=== PATIENT | female | born 1950 | race Asian ===

== ENCOUNTER → 2020-01-27 11:51 | Outpatient (CLI) | payer MEDICARE, OTHER, SELFPAY ==
[2020-01-27 12:30] LABS: Add Manual Diff / Slide Review NO; Basophils Absolute Auto 100 /uL (0-100); Basophils Percent Auto 1.1 % (0-2); Eosinophils Absolute Auto 200 /uL (0-450); Eosinophils Percent Auto 2.4 % (2-4); Hematocrit 46.6 % (36-46); Hemoglobin 15.6 g/dL (12.0-16.0); Lymphocytes Absolute Auto 1900 /uL (1100-4500); Lymphocytes Percent Auto 28.1 % (25-40); Mean Corpuscular HGB Conc 33.6 % (30-36); Mean Corpuscular Volume 89.6 fL (80-100); Monocytes Absolute Auto 300 /uL (0-900); Monocytes Percent Auto 4.2 % (3-14); Neutrophils Absolute Auto 4300 /uL (1500-7000); Neutrophils Percent Auto 64.2 % (50-75); Platelet Count 213 X10^3/uL (150-400); White Blood Cell Count 6.8 X10^3/uL (4.5-11.0)
[2020-01-27 12:53] LABS: Alanine Aminotransferase 17 IU/L (<35); Albumin 4.5 g/dL (3.5-5.0); Albumin Globulin Ratio 1.5 (1.0-2.8); Alkaline Phosphatase 85 U/L (38-126); Aspartate Aminotransferase 26 IU/L (14-36); Bilirubin Total 0.5 mg/dL (0.2-1.3); Blood Urea Nitrogen 16 mg/dL (7-17); Calcium 9.5 mg/dL (8.4-10.2); Carbon Dioxide 28 mmol/L (22-32); Chloride 106 mmol/L (98-107); Cholesterol 217 mg/dL (140-199); Estimated Glomerular Filt Rate > 60.0 mL/min (>60); Globulin 3.1 g/dL (1.7-4.1); Glucose 128 mg/dL (80-110); HDL Cholesterol 48 mg/dL (40-60); HEMOLYSIS < 15 (0-50); Potassium 4.4 mmol/L (3.4-5.1); Sodium 141 mmol/L (137-145); Total Protein 7.6 g/dL (6.3-8.2)
[2020-01-27 12:58] LABS: Hemoglobin A1C% w Est Avg Glu 7.1 % (4.0-6.0)
[2020-01-27 13:00] LABS: Creatinine Urine Random 70.1 mg/dL
[2020-01-27 13:02] LABS: Microalbumi Creatinin Ratio Ur 27.1 ug/mg CR (<30); Microalbumin Urine Random 1.9 mg/dL (0-1.6)
[2020-01-27 13:09] LABS: LDL Cholesterol Calculated 142 mg/dL (<100); Triglycerides 133 mg/dL (35-150)
[2020-01-27 13:27] LABS: Thyroid Stimulating Hormone 0.403 uIU/mL (0.47-4.68)
[2020-01-27 15:57] LABS: Free T3, Triiodothyronine Free 3.81 pg/mL (2.77-5.27); Free T4, Direct Thyroxine 1.34 ng/dL (0.78-2.19)
== END ==
PROVIDERS: PCP Registered Nurse Diabetes Educator; Referring Provider Registered Nurse Diabetes Educator; Visit Provider Registered Nurse Diabetes Educator
DX: E11.9 Type 2 diabetes mellitus without complications (principal); I10 Essential (primary) hypertension; E08.40 Diabetes mellitus due to underlying condition with diabetic neuropathy, unspecified; R79.89 Other specified abnormal findings of blood chemistry
CPT/HCPCS: 36415; 80053; 80061; 82043; 82570; 83036; 84439; 84443; 84481; 85025

== ENCOUNTER 2021-01-15 16:16 | Emergency (ER) | payer MEDICARE, OTHER, SELFPAY ==
[2021-01-15] VITALS (7 sets, daily range): BP systolic 127–214; BP diastolic 64–89; PULSE 53–68; RESP 18–20; TEMP 36.3; O2SAT 96–98
--- NOTE | 2021-01-15 16:23 | ED.ABDPAIN ---
HPI - Abdominal Pain General Chief Complaint: Abdominal Pain Stated Complaint: stomach ache since saturday night Time Seen by Provider: 01/15/21 16:19 Source: patient and family Mode of arrival: Ambulatory Limitations: no limitations History of Present Illness HPI narrative: 70-year-old female nonsmoker with history of hypertension presents with her son and a chief complaint of a few days of worsening generalized abdominal pain associated with nausea and constipation. She denies any fever chills nor history of the same. She states her pain has subtle into her left lower quadrant and seems to be worse with eating, drinking and moving. She states the driving in was rather uncomfortable. She denies any radiation of the pain. She states that it is rather persistent, achy and crampy in nature. She denies any urinary complaints such as dysuria, frequency or urgency MD complaint: abdominal pain and flank pain Onset (ago): day(s) Pain Consistency: constant Location: LLQ Severity: moderate Quality: cramping and aching Radiation: none Relieving factors: nothing Exacerbating factors: eating Associated symptoms: nausea and constipation Related Data Home Medications Medication Instructions Recorded Confirmed calcium carbonate 200 mg-magnesium tab PO 04/03/19 02/11/20 oxide,carbonate 100 mg chew tablet cholecalciferol (vitamin D3) 25 1,000 unit PO DAILY 04/03/19 02/11/20 mcg (1,000 unit) capsule multivitamin 1 tab PO DAILY 04/03/19 02/11/20 vitamin B comp and C no.3 15 mg-10 1 cap PO DAILY 04/03/19 02/11/20 mg-50 mg-5 mg-300 mg capsule Previous Rx's Medication Instructions Recorded Diabetic test strips #100 each 04/03/19 gabapentin 300 mg capsule 300 mg PO BEDTIME #90 cap 11/18/19 losartan 50 mg tablet 50 mg PO DAILY #90 tab 01/27/20 metformin 500 mg tablet,extended 500 mg PO QPM #90 tab 01/27/20 release 24 hr nifedipine 30 mg tablet,extended 30 mg PO DAILY #90 tab 01/27/20 release 24 hr Allergies Allergy/AdvReac Type Severity Reaction Status Date / Time sulfamethoxazole Allergy Unknown Verified 02/11/20 08:06 [From ] trimethoprim [From ] Allergy Unknown Verified 02/11/20 08:06 Review of Systems Constitutional Constitutional: Denies chills, Denies fatigue, Denies fever(s), Denies frequent falls, Denies lethargy and Denies weakness Eyes Eyes: Denies change in vision, Denies eye discharge, Denies irritation and Denies loss of vision ENT Ears, Nose, Mouth, and Throat: Denies change in voice, Denies dizziness, Denies neck pain, Denies sore throat and Denies throat swelling Cardiovascular Cardiovascular: Denies chest pain, Denies irregular heart rhythm, Denies lightheadedness, Denies palpitations, Denies dyspnea, Denies dyspnea on exertion and Denies orthopnea Respiratory Respiratory: Denies cough, Denies dyspnea, Denies dyspnea on exertion and Denies wheezing Gastrointestinal Gastrointestinal: Reports abdominal pain, Denies change in bowel habits, Denies diarrhea, Reports nausea and Reports vomiting Musculoskeletal Musculoskeletal: Denies neck pain and Denies numbness Integumentary/Breasts Skin/Breast: Denies pruritus, Denies erythema, Denies rash and Denies wounds Neurologic Neurologic: Denies behavioral changes, Denies confusion, Denies dizziness, Denies frequent falls, Denies loss of vision, Denies numbness and Denies weakness Psychiatric Psychiatric: Denies anxiety, Denies behavioral changes, Denies confusion, Denies depression, Denies homicidal ideation and Denies suicidal ideation Endocrine Endocrine: Denies fatigue, Denies flushing and Denies palpitations Hematologic/Lymphatic Hematologic/Lymphatic: Denies easy bruising Allergic/Immunologic Allergic/Immunologic: Denies urticaria, Denies throat swelling and Denies wheezing Patient History Medical History Abnormal thyroid blood test Bradycardia Hyperlipidemia Surgical History Anesthesia History of endometriosis (~2004) Status post delivery (~1981) Family History Father Asthma Grandmother Tuberculosis Social History Smoking Status: Current every day smoker (1/2 PPD) Tobacco: How many years used: 40 second hand exposure: Yes alcohol intake: current (Occasional) Smoking Status: Current every day smoker (1/2 PPD) Exam Narrative Exam Narrative: GENERAL: [70] year old patient appears stated age. Well-developed patient, in mild distress. HEAD: Atraumatic. Normocephalic. EYES: Pupils equal round and reactive. Extraocular motions intact. No scleral icterus. No injection or drainage. ENT: Nose without bleeding, purulent drainage. Throat without erythema, tonsillar hypertrophy or exudate. Airway patent. NECK: Trachea midline. Non tender CARDIOVASCULAR: Regular rate and rhythm without murmurs, gallops, or rubs. RESPIRATORY: Clear to auscultation. Breath sounds equal bilaterally. No wheezes, rales, or rhonchi. GASTROINTESTINAL: Abdomen soft, tender in left lower quadrant and left abdomen, bowel sounds present in all 4 quadrants no guarding or rebound, nondistended. EXTREMITIES: No edema or joint tenderness. BACK: Nontender without deformity or crepitance. No flank tenderness. NEURO: AOx3. SKIN: No rash or erythema of visible areas Initial Vital Signs Initial Vital Signs: Vital Signs Temperature 97.4 F L 01/15/21 16:21 Pulse Rate 68 01/15/21 16:21 Respiratory Rate 20 01/15/21 16:21 Blood Pressure 214/89 H 01/15/21 16:21 Pulse Oximetry 96 01/15/21 16:21 Course Orders Ordered: ED Orders 01/15/21 16:23 XR acute abdomen series Stat 01/15/21 16:27 Complete Blood Count AUTO DIFF Stat Comprehensive Metabolic Panel Stat Lipase Stat 01/15/21 17:05 CT abdomen pelvis w con Stat Sodium Chloride (Normal Saline 0.9%) 1,000 mls @ 1,000 mls/hr IV BOLUS ONE Stop: 01/15/21 17:22 Last Admin: 01/15/21 16:41 Dose: 1,000 mls/hr Documented by: DAPHNE Vital Signs Vital signs: Vital Signs - 8 hr 01/15/21 16:21 01/15/21 16:30 01/15/21 16:59 Temperature 97.4 F L Pulse Rate 68 57 L 56 L Respiratory Rate 20 18 Blood Pressure 214/89 H 142/67 H Pulse Oximetry 96 97 97 01/15/21 17:00 Temperature Pulse Rate 56 L Respiratory Rate Blood Pressure 140/76 Pulse Oximetry 97 MDM - Abdominal Pain Lab Data Result diagrams: 01/15/21 16:27 01/15/21 16:27 Labs: Lab Results 01/15/21 01/15/2101/15/21 Range/Units 16:27 16:27 16:27 WBC 11.5 H (4.5-11.0) X10^3/uL RBC 5.37 H (4.0-5.2) X10^6/uL Hgb 15.9 (12.0-16.0) g/dL Hct 48.0 H (36-46) % MCV 89.4 (80-100) fL MCH 29.6 (26-34) PG MCHC 33.1 (30-36) % RDW 14.5 (11.6-14.8) % Plt Count 216 (150-400) X10^3/uL Neut % (Auto) 76.3 H (50-75) % Lymph % (Auto) 16.1 L (25-40) % [place] % (Auto) 5.6 (3-14) % Eos % (Auto) 1.6 L (2-4) % Baso % (Auto) 0.4 (0-2) % Neut # (Auto) 8700 H (7086-9878) /uL Lymph # (Auto) 1800 (2623-9146) /uL [place] # (Auto) 600 (0-900) /uL Eos # (Auto) 200 (0-450) /uL Baso # (Auto) 0 (0-100) /uL Sodium 139 (137-145) mmol/L Potassium 3.8 (3.4-5.1) mmol/L Chloride 103 (98-107) mmol/L Carbon Dioxide 28 (22-32) mmol/L BUN 19 H (7-17) mg/dL Creatinine 0.84 (0.52-1.04) mg/dL Estimated GFR > 60.0 (>60) mL/min BUN/Creatinine Ratio 22.6 H (6-22) Glucose 207 H (80-110) mg/dL Calcium 10.0 (8.4-10.2) mg/dL Total Bilirubin 0.5 (0.2-1.3) mg/dL AST 23 (14-36) IU/L ALT 18 (<35) IU/L Alkaline Phosphatase 86 (38-126) U/L Total Protein 8.2 (6.3-8.2) g/dL Albumin 4.5 (3.5-5.0) g/dL Globulin 3.7 (1.7-4.1) g/dL Albumin/Globulin Ratio 1.2 (1.0-2.8) Lipase 125 (23-300) U/L Imaging Data Abdominal x-ray: Radiologist's Impression: [address] [id number] ReportSigned Patient: Hayley Yao GMR#: [id number]: 1950cct:[id number]/Sex: 70 / FDate of Service: 01/15/21Loc: EDAccession Number: [id number] Procedure: XR acute abdomen series Ordering Provider: Phani Barker D.O. PROCEDURE: XR ACUTE ABDOMEN SERIES INDICATIONS: Abdominal pain, nausea, constipation TECHNIQUE: One view chest and two views of the abdomen were acquired. COMPARISON: None. FINDINGS: Surgical changes and devices: None. Chest: Lungs are clear. The cardiac contours are within normal limits. The aorta demonstrates calcification and tortuosity. No pleural effusions. No pneumoperitoneum. Abdomen: Bowel gas pattern is normal. No suspicious calcifications. Visualized solid organ contours appear normal. There is a moderate amount of stool seen within the colon. Bones: No suspicious bony lesions. IMPRESSION: A nonobstructive bowel gas pattern is seen. There is a moderate amount of stool seen within the colon, which is consistent with the given clinical history of history of constipation. If clinically appropriate, please consider a repeat plain film study or a dedicated CT of the abdomen and pelvis, if the patient's symptoms persist or worsen. Dictated by: Kenyon Cristina M.D. on 01/15/2021 at 15:57 Approved by: Kenyon Cristina M.D. on 01/15/2021 at 15:59 Discharge Plan Departure Prescriptions: No Action gabapentin 300 mg capsule 300 mg PO BEDTIME Qty: 90 RF: 0 nifedipine 30 mg tablet extended release 24hr 30 mg PO DAILY Qty: 90 RF: 3 losartan 50 mg tablet 50 mg PO DAILY Qty: 90 RF: 3 metformin 500 mg tablet extended release 24 hr 500 mg PO QPM Qty: 90 RF: 3 B Complex Plus Vitamin C 65-04-82-5-300 mg capsule 1 cap PO DAILY RF: 0 Pancho-Mag 200 mg calcium- 100 mg tablet,chewable PO RF: 0 multivitamin tablet 1 tab PO DAILY RF: 0 cholecalciferol (vitamin D3) 1,000 unit capsule 1,000 unit PO DAILY RF: 0 (DME) Diabetic test strips Qty: 100 RF: 3
[2021-01-15 16:36] LABS: Add Manual Diff / Slide Review NO; Basophils Absolute Auto 0 /uL (0-100); Basophils Percent Auto 0.4 % (0-2); Eosinophils Absolute Auto 200 /uL (0-450); Eosinophils Percent Auto 1.6 % (2-4); Hemoglobin 15.9 g/dL (12.0-16.0); Lymphocytes Absolute Auto 1800 /uL (1100-4500); Lymphocytes Percent Auto 16.1 % (25-40); Mean Corpuscular HGB Conc 33.1 % (30-36); Mean Corpuscular Hemoglobin 29.6 PG (26-34); Mean Corpuscular Volume 89.4 fL (80-100); Monocytes Absolute Auto 600 /uL (0-900); Monocytes Percent Auto 5.6 % (3-14); Neutrophils Absolute Auto 8700 /uL (1500-7000); Neutrophils Percent Auto 76.3 % (50-75); Platelet Count 216 X10^3/uL (150-400); Red Blood Cell Count 5.37 X10^6/uL (4.0-5.2); Red Cell Distribution Width 14.5 % (11.6-14.8); White Blood Cell Count 11.5 X10^3/uL (4.5-11.0)
[2021-01-15] MEDS: SODIUM CHLORIDE 0.9% 1,000 ML 1000 ML IV (16:41)
[2021-01-15 16:55] LABS: Alanine Aminotransferase 18 IU/L (<35); Albumin 4.5 g/dL (3.5-5.0); Albumin Globulin Ratio 1.2 (1.0-2.8); Alkaline Phosphatase 86 U/L (38-126); Aspartate Aminotransferase 23 IU/L (14-36); BUN Creatinine Ratio 22.6 (6-22); Bilirubin Total 0.5 mg/dL (0.2-1.3); Blood Urea Nitrogen 19 mg/dL (7-17); Carbon Dioxide 28 mmol/L (22-32); Chloride 103 mmol/L (98-107); Estimated Glomerular Filt Rate > 60.0 mL/min (>60); Globulin 3.7 g/dL (1.7-4.1); Glucose 207 mg/dL (80-110); HEMOLYSIS < 15 (0-50); Lipase 125 U/L (23-300); Potassium 3.8 mmol/L (3.4-5.1); Sodium 139 mmol/L (137-145); Total Protein 8.2 g/dL (6.3-8.2)
--- NOTE | 2021-01-15 17:05 | DI.CT.S_ITS ---
PROCEDURE: CT ABDOMEN PELVIS W CON INDICATIONS: severe LLQ pain, elevated WBCs TECHNIQUE: After the administration of intravenous contrast, axial sections acquired from the lung bases to the pubic symphysis. Coronal and sagittal reformats were performed. For radiation dose reduction, the following was used: automated exposure control, adjustment of mA and/or kV according to patient size. COMPARISON: [facility], CR, XR ACUTE ABDOMEN SERIES, 01/15/2021, 16:22. FINDINGS: Image quality: Excellent. Lung bases: Unremarkable. Heart: No significant findings. ABDOMEN: Liver: Unremarkable. Gallbladder: Unremarkable. Biliary ducts: Unremarkable. Pancreas: Unremarkable. Spleen: Unremarkable. Adrenal Glands: Unremarkable. Kidneys and Ureters: Unremarkable. Stomach and Bowel: In this patient with this given history, scrutiny is given to the sigmoid colon. Moderate wall thickening can be seen involving the sigmoid colon, with mild surrounding inflammatory change. Diverticula formation can be seen within this region. No free air is seen to suggest perforation. No loculated abscess collection can be seen. Elsewhere, no focal bowel wall thickening can be seen. No dilated loops of small bowel are seen. A normal appendix is incidentally noted. Hyperdense material can be seen within the colon. Please correlate with ingestions, such as Pepto-Bismol. Peritoneum: No abnormal intraperitoneal fluid. No free air. Ventral Wall: No hernias. Abdominal Nodes: No retroperitoneal or mesenteric adenopathy by size criteria. Vessels: Aorta and inferior vena cava are normal in size. PELVIS: Pelvic Organs: Unremarkable. Bladder: Unremarkable. Pelvic Nodes: No enlarged lymph nodes. Miscellaneous: Note is made prominent adnexal vessels on the left, with a prominent left ovarian vein. Bones: Mild levoconvex scoliotic curvature is noted. Age-appropriate bony degenerative changes are seen. Grade 1 L4-5 anterolisthesis is seen. IMPRESSION: [id number] sigmoid diverticulitis. No findings of perforation or abscess can be seen. When clinically appropriate (following adequate treatment of the patient's current clinical episode) a colonoscopy is recommended for further evaluation for a potential underlying mass (if not already recently done). Incidental note is made of: Levoconvex scoliotic curvature Grade 1 L4-5 anterolisthesis Left pelvic varices Dictated by: Kenyon Cristina M.D. on 01/15/2021 at 16:27 Approved by: Kenyon Cristina M.D. on 01/15/2021 at 16:31
[2021-01-15] MEDS: HYDROCODONE/ACET 5/325 PREPACK 1 BOTTLE MISC (18:06)
[2021-01-15] MEDS: AMOXICILLIN/CLAV 875/125 MG 1 TAB PO (18:06)
[2021-01-15] MEDS: ONDANSETRON 4 MG ODT PREPACK 1 BOTTLE MISC (18:06)
== END 2021-01-15 18:26 | disposition home or self-care (01) ==
PROVIDERS: Emergency Provider Emergency Medicine; PCP Registered Nurse Diabetes Educator
DX: K57.92 Diverticulitis of intestine, part unspecified, without perforation or abscess without bleeding (principal); R11.0 Nausea; K59.00 Constipation, unspecified
CPT/HCPCS: 36415; 74022; 74177; 80053; 83690; 85025; 96360; 99284

== ENCOUNTER 2021-02-20 19:08 | Inpatient (IN) | payer MEDICARE, OTHER, SELFPAY ==
[2021-02-20 19:31] VITALS: BP 139/81; PULSE 74; RESP 14; TEMP 36.2; O2SAT 99
[2021-02-20 21:48] VITALS: BP 166/79; PULSE 74; RESP 26; TEMP 37.9; O2SAT 96
[2021-02-20 21:56] LABS: Add Manual Diff / Slide Review NO; Basophils Absolute Auto 100 /uL (0-100); Basophils Percent Auto 0.4 % (0-2); Eosinophils Absolute Auto 600 /uL (0-450); Eosinophils Percent Auto 4.2 % (2-4); Hematocrit 44.6 % (36-46); Hemoglobin 14.6 g/dL (12.0-16.0); Lymphocytes Absolute Auto 1000 /uL (1100-4500); Lymphocytes Percent Auto 6.6 % (25-40); Mean Corpuscular HGB Conc 32.8 % (30-36); Mean Corpuscular Hemoglobin 28.9 PG (26-34); Mean Corpuscular Volume 87.9 fL (80-100); Monocytes Absolute Auto 800 /uL (0-900); Monocytes Percent Auto 5.6 % (3-14); Neutrophils Absolute Auto 12600 /uL (1500-7000); Neutrophils Percent Auto 83.2 % (50-75); Platelet Count 198 X10^3/uL (150-400); Red Blood Cell Count 5.07 X10^6/uL (4.0-5.2); Red Cell Distribution Width 14.3 % (11.6-14.8); White Blood Cell Count 15.2 X10^3/uL (4.5-11.0)
[2021-02-20 22:00] VITALS: BP 149/75; PULSE 71; RESP 24; O2SAT 95
[2021-02-20 22:02] LABS: Alanine Aminotransferase 33 IU/L (<35); Albumin 4.1 g/dL (3.5-5.0); Albumin Globulin Ratio 1.2 (1.0-2.8); Alkaline Phosphatase 108 U/L (38-126); Aspartate Aminotransferase 40 IU/L (14-36); BUN Creatinine Ratio 30.8 (6-22); Bilirubin Total 0.8 mg/dL (0.2-1.3); Blood Urea Nitrogen 16 mg/dL (7-17); Calcium 9.2 mg/dL (8.4-10.2); Carbon Dioxide 26 mmol/L (22-32); Chloride 106 mmol/L (98-107); Estimated Glomerular Filt Rate > 60.0 mL/min (>60); Globulin 3.5 g/dL (1.7-4.1); Glucose 162 mg/dL (80-110); HEMOLYSIS 26 (0-50); Lipase 50 U/L (23-300); Potassium 3.9 mmol/L (3.4-5.1); Sodium 139 mmol/L (137-145); Total Protein 7.6 g/dL (6.3-8.2)
[2021-02-20 22:30] VITALS: BP 150/78; PULSE 73; RESP 29; O2SAT 92
[2021-02-20 23:00] VITALS: PULSE 73; RESP 30; O2SAT 93
[2021-02-20 23:30] VITALS: PULSE 75; RESP 31; O2SAT 94
[2021-02-21] VITALS (31 sets, daily range): BP systolic 109–158; BP diastolic 61–79; PULSE 59–101; RESP 14–38; TEMP 36.1–37.5; O2SAT 92–100; BMI 24.8; BMI 23.3
[2021-02-21] MEDS: KETOROLAC 30 MG/ML VIAL 15 MG IV (00:48)
--- NOTE | 2021-02-21 01:00 | ED_ITS ---
HPI - Abdominal Pain General Chief Complaint: Abdominal Pain Stated Complaint: STOMACH PAIN Time Seen by Provider: 02/21/21 01:00 Source: patient Mode of arrival: Wheelchair Limitations: no limitations History of Present Illness HPI narrative: This is a 70-year-old female comes with complaint of abdominal pain. Patient states it started left lower quadrant but is now throughout her abdomen. She has not had a fever that she is aware of. She has not any nausea or vomiting. She is having some epigastric discomfort as well. Patient states she has not had a bowel movement for 12-24 hours. She has not had any black or bloody stools recently. She has noted that when she bears down to urinate she has increased pain in her abdomen. She has not appreciated any other urinary symptoms. Patient has had diverticulitis in the past she states she was on antibiotics before on improved. She did set up an appointment with our general surgeon Dr. Mohr but has not been able to see him. She has had 2 days of sy mptoms. She has had a history of diabetes, endometriosis and hypertension. She has not had her appendix removed. Positive for tobacco use, occasional alcohol, no illicit. She is allergic to Septra. She denies any other medication allergies Related Data Home Medications Medication Instructions Recorded Confirmed calcium carbonate 200 mg-magnesium tab PO 04/03/19 02/11/20 oxide,carbonate 100 mg chew tablet (Pancho-Mag) vitamin B comp and C no.3 15 mg-10 1 cap PO DAILY 04/03/19 02/11/20 mg-50 mg-5 mg-300 mg capsule (B Complex Plus Vitamin C) Previous Rx's Medication Instructions Recorded Diabetic test strips #100 each 04/03/19 losartan 50 mg tablet 50 mg PO DAILY #90 tab 01/27/20 metformin 500 mg tablet,extended 500 mg PO QPM #90 tab 01/27/20 release 24 hr ondansetron 4 mg disintegrating 4 mg PO TID-QID PRN #10 tab 01/15/21 tablet gabapentin 300 mg capsule 300 mg PO BEDTIME #30 cap 01/19/21 nifedipine 30 mg tablet,extended 30 mg PO DAILY #30 tab 01/19/21 release 24 hr Allergies Allergy/AdvReac Type Severity Reaction Status Date / Time sulfamethoxazole Allergy Unknown Verified 02/20/21 19:34 [From SEPTRA] trimethoprim [From APRRA] Allergy Unknown Verified 02/20/21 19:34 Review of Systems Review of Systems ROS Unobtainable: All systems reviewed & are unremarkable except as noted in HPI and below Patient History Medical History Abnormal thyroid blood test Bradycardia Hyperlipidemia Screening for malignant neoplasm of colon Surgical History Anesthesia History of endometriosis (~2004) Status post delivery (~1981) Family History Father Asthma Grandmother Tuberculosis Social History household members: family and children Smoking Status: Current every day smoker Tobacco: How many years used: 40 second hand exposure: Yes alcohol intake: current Smoking Status: Current every day smoker alcohol intake frequency: 0-2 drinks per day Substance Use Type: does not use Exam Narrative Exam Narrative: GENERAL: Alert and oriented x three, female in moderate distress. HEENT: Head normocephalic, atraumatic, EOMI, pupils reactive, face symmetric, moist mucous membranes NECK: Supple, full range of motion CARDIOVASCULAR: Regular rate and rhythm without murmurs, rubs or gallops. RESPIRATORY: Breath sounds equal bilaterally, no wheezes rales or rhonchi. ABDOMEN: Soft, generalized tenderness. Normoactive bowel sounds all 4 quadran ts. Positive for guarding and rebound, no rigidity, no mass : No CVA tenderness EXTREMITIES: Normal range of motion, no clubbing or edema. Neurovascularly intact NEUROLOGICAL: Cranial nerves II through XII grossly intact. Moving all extremities SKIN: Warm, dry, no petechiae, no rashes or lesions. Initial Vital Signs Initial Vital Signs: Vital Signs Temperature 97.1 F L 02/20/21 19:31 Pulse Rate 74 02/20/21 19:31 Respiratory Rate 14 02/20/21 19:31 Blood Pressure 139/81 02/20/21 19:31 Pulse Oximetry 99 02/20/21 19:31 Course Orders Ordered: ED Orders 02/21/21 01:18 CT abdomen pelvis w con Stat 02/21/21 02:20 COVID19 - ADMIT (BAT[employer] TEST ENGINEER swab/PCR) Stat Sodium Chloride (Normal Saline 0.9%) 1,000 mls @ 125 mls/hr IV CONT [facility] Last Admin: 02/21/21 05:41 Dose: 125 mls/hr Documented by: ROSALINA Piperacillin Sod/Tazobactam (Sod 4.5 gm/ Sodium Chloride) 100 mls @ 25 mls/hr IV Q8H [facility] Last Admin: 02/21/21 05:41 Dose: 25 mls/hr Documented by: ROSALINA Morphine Sulfate (Morphine 4 Mg/Ml Inj) 4 mg IV Q2HR PRN PRN Reason: PAIN, MODERATE TO SEVERE Naloxone HCl (Naloxone 0.4 Mg/Ml Vial) 0.2 mg IV Q2MIN PRN PRN Reason: Opiate Reversal Ondansetron HCl (Ondansetron 4 Mg/2 Ml Inj) 4 mg IV Q4HR PRN PRN Reason: Nausea And Vomiting Discontinued Medications Piperacillin Sod/Tazobactam (Sod 4.5 gm/ Sodium Chloride) 100 mls @ 200 mls/hr IV NOW ONE Stop: 02/21/21 01:19 Last Infusion: 02/21/21 02:23 Dose: 0 mls/hr Documented by: Admin: 02/21/21 01:38 Dose: 200 mls/hr Documented by: LUKAS Ketorolac Tromethamine (Ketorolac 30 Mg/Ml Vial) 15 mg IV NOW ONE Stop: 02/21/21 00:46 Last Admin: 02/21/21 00:48 Dose: 15 mg Documented by: LUKAS Morphine Sulfate (Morphine 4 Mg/Ml Inj) 4 mg IV NOW ONE Stop: 02/21/21 02:35 Last Admin: 02/21/21 02:57 Dose: 4 mg Documented by: TIFFANIE Morphine Sulfate (Morphine 4 Mg/Ml Inj) 4 mg IV Q2HR [facility] Consultations Consultation #1: Dr. Mohr, accepts for admission. Diverticulitis with abscess. Patient has white count of 15 and was tachypneic initially although that has improved but she did initially meet SIRS criteria. Vital Signs Vital signs: Vital Signs - 8 hr 02/20/21 23:00 02/20/21 23:30 02/21/21 00:00 Temperature Pulse Rate 73 75 76 Respiratory Rate 30 H 31 H 29 H Blood Pressure Pulse Oximetry 93 94 93 02/21/21 00:30 02/21/21 01:00 02/21/21 01:20 Temperature 98.2 F Pulse Rate 70 73 Respiratory Rate 38 H 28 H Blood Pressure Pulse Oximetry 94 94 02/21/21 01:34 02/21/21 02:00 02/21/21 02:21 Temperature Pulse Rate 83 67 71 Respiratory Rate 24 25 H Blood Pressure 130/65 Pulse Oximetry 95 97 94 02/21/21 02:30 Temperature Pulse Rate 64 Respiratory Rate 26 H Blood Pressure Pulse Oximetry 94 MDM - Abdominal Pain Lab Data Result diagrams: 02/20/21 21:40 02/20/21 21:40 Labs: Lab Results 02/20/21 02/20/21 02/21/21 Range/Units 21:40 21:40 02:20 WBC 15.2 H (4.5-11.0) X10^3/uL RBC 5.07 (4.0-5.2) X10^6/uL Hgb 14.6 (12.0-16.0) g/dL Hct 44.6 (36-46) % MCV 87.9 (80-100) fL MCH 28.9 (26-34) PG MCHC 32.8 (30-36) % RDW 14.3 (11.6-14.8) % Plt Count 198 (150-400) X10^3/uL Neut % (Auto) 83.2 H (50-75) % Lymph % (Auto) 6.6 L (25-40) % [place] % (Auto) 5.6 (3-14) % Eos % (Auto) 4.2 H (2-4) % Baso % (Auto) 0.4 (0-2) % Neut # (Auto) 07140 H (4368-2890) /uL Lymph # (Auto) 1000 L (2089-8053) /uL [place] # (Auto) 800 (0-900) /uL Eos # (Auto) 600 H (0-450) /uL Baso # (Auto) 100 (0-100) /uL Sodium 139 (137-145) mmol/L Potassium 3.9 (3.4-5.1) mmol/L Chloride 106 (98-107) mmol/L Carbon Dioxide 26 (22-32) mmol/L BUN 16 (7-17) mg/dL Creatinine 0.52 (0.52-1.04) mg/dL Estimated GFR > 60.0 (>60) mL/min BUN/Creatinine Ratio 30.8 H (6-22) Glucose 162 H (80-110) mg/dL Calcium 9.2 (8.4-10.2) mg/dL Total Bilirubin 0.8 (0.2-1.3) mg/dL AST 40 H (14-36) IU/L ALT 33 (<35) IU/L Alkaline Phosphatase 108 (38-126) U/L Total Protein 7.6 (6.3-8.2) g/dL Albumin 4.1 (3.5-5.0) g/dL Globulin 3.5 (1.7-4.1) g/dL Albumin/Globulin Ratio 1.2 (1.0-2.8) Lipase 50 (23-300) U/L SARS-CoV-2 (PCR) Negative (Negative) ECG Data Interpretation: Sinus rhythm rate of 70 6p are 138 QRS is 74 QTC 371. Nonspecific changes. MDM Narrative Medical decision making narrative: 70-year-old female comes emergency department with several days of abdominal pain patient is quite painful on her abdominal exam. CT imaging was obtained which shows sigmoid diverticulitis with abscess. Patient was started on Zosyn. COVID swab was obtained and patient's case was discussed with Dr. Mohr who accepts for admission Discharge Plan Departure Patient Disposition: Admitted As Inpatient Clinical Impression: Abscess of sigmoid colon due to diverticulitis, Cyst of right kidney Admit Date/Time: 02/21/21 02:36 Admit Provider: Scott Mohr
--- NOTE | 2021-02-21 01:18 | DI.CT.S_ITS ---
PROCEDURE: CT ABDOMEN PELVIS W CON INDICATIONS: abdominal pain generalized, history of diverticulitis TECHNIQUE: After the administration of intravenous contrast, axial sections acquired from the lung bases to the pubic symphysis. Coronal and sagittal reformats were performed. For radiation dose reduction, the following was used: automated exposure control, adjustment of mA and/or kV according to patient size. COMPARISON: [facility], CR, XR ACUTE ABDOMEN SERIES, 01/15/2021, 16:22. [facility], CT, CT ABDOMEN PELVIS W CON, 01/15/2021, 17:17. FINDINGS: Image quality: Excellent. Lung bases: Right middle lobe and basilar atelectasis. Small hiatal hernia. Heart: No significant findings. ABDOMEN: Liver: Liver is normal in size. Hepatic steatosis. Gallbladder: Unremarkable. Biliary ducts: Unremarkable. Pancreas: Unremarkable. Spleen: Unremarkable. Adrenal Glands: Unremarkable. Kidneys and Ureters: There is a 0.9 cm cortical cyst in the inferior pole of the right kidney. Stomach and Bowel: Colonic diverticula are present. There is segmental thickening and pericolonic stranding of sigmoid colon consistent with acute diverticulitis. There is an extraluminal air and gas collection anterior to the sigmoid colon measuring 4.1 x 3.9 cm, compatible with an abscess. Bowel loops are demonstrate normal caliber. Normal appendix. Peritoneum: Trace free intraperitoneal fluid. No free air. Ventral Wall: Tiny fat containing umbilical hernia. Abdominal Nodes: No retroperitoneal or mesenteric adenopathy by size criteria. Vessels: Aorta and inferior vena cava are normal in size. Mild atherosclerotic calcifications. PELVIS: Pelvic Organs: Unremarkable. Bladder: Unremarkable. Pelvic Nodes: No enlarged lymph nodes. Miscellaneous: No hernias are seen. Bones: Grade 1 anterolisthesis of L 4 on L5. Degenerative changes in lumbar spine. IMPRESSION: 1. Sigmoid diverticulosis and acute diverticulitis. There is a 4.1 x 3.9 cm extra-luminal air and gas collection anterior to the sigmoid colon compatible with an abscess. A trace amount of free fluid is present. No free peritoneal air. After adequate treatment, colonoscopy is suggested as colon cancer could have a similar CT appearance. No significant discrepancy with the certified shorthand reporter radiology preliminary report. Dictated by: Whitney Llanes M.D. on 02/21/2021 at 7:55 Approved by: Whitney Llanes M.D. on 02/21/2021 at 8:08
[2021-02-21] MEDS: PIPERACILLIN/TAZO 4.5 GM in SODIUM CHLORIDE 0.9% 100 ML 200 ML IV (01:38)
[2021-02-21] MEDS: MORPHINE 4 MG/ML INJ IV (02:57)
[2021-02-21 03:15] LABS: Bacteria Urine None Seen; WBC Urine None Seen (0-5/HPF)
[2021-02-21 03:16] LABS: Appearance Urine UA CLEAR; Bilirubin Urine UA NEGATIVE (NEGATIVE); Color Urine UA YELLOW; Glucose Urine UA TRACE g/dL (Negative); Ketones Urine UA 1+ (NEGATIVE); Leukocyte Esterase Urine UA NEGATIVE (NEGATIVE); Nitrite Urine UA NEGATIVE (Negative); Occult Blood Urine UA 3+ (Negative); Protein Urine UA 1+ (Negative); Urobilinogen Urine UA 0.2 E.U./dL (0.2)
[2021-02-21 03:20] LABS: COVID19 - ADMIT (NP swab/PCR) Negative (Negative)
[2021-02-21 03:30] LABS: Culture Indicated Urine Cult Not Indicated; Mucus Urine 2+ (Negative); RBC Urine 1-5/HPF (0-5/HPF); Squamous Epithelial Cell Urine 1-5 /HPF (0-5/HPF)
[2021-02-21] MEDS: PIPERACILLIN/TAZO 4.5 GM in SODIUM CHLORIDE 0.9% 100 ML 25 ML IV (05:41)
[2021-02-21] MEDS: SODIUM CHLORIDE 0.9% 1,000 ML 125 ML IV (05:41)
--- NOTE | 2021-02-21 10:57 | PC.NURSE ---
Pt to OR via bed with chart transported by [employer]
[2021-02-21] MEDS: LACTATED RINGERS 1,000 ML 42 ML IV ×3 (11:18→18:40)
--- NOTE | 2021-02-21 11:57 | PM.HP.1 ---
History of Present Illness History of Present Illness Date Patient Seen: 02/21/21 Time Patient Seen: 11:57 Chief complaint: STOMACH PAIN Narrative: 70-year-old woman history of diverticulitis and diabetes admitted to the hospital for acute complicated diverticulitis. Developed worsening abdominal pain over the past 2 days presented to the emergency room 02/20/2021. At admission WBC 15, CT abdomen pelvis demonstrates 4 cm colonic abscess of the sigmoid colon no free air small amount of free fluid. She was started on Zosyn made NPO. Previous episode diverticulitis without abscess 2 months ago treated with oral antibiotics. Currently has a left lower quadrant abdominal pain no nausea vomiting diarrhea or fever. Pain is slightly improved overnight with antibiotic therapy. Patient History Medical History Abnormal thyroid blood test Bradycardia Hyperlipidemia Screening for malignant neoplasm of colon Surgical History Anesthesia History of endometriosis (~2004) Status post delivery (~1981) Family & Social History Family History Father Asthma Grandmother Tuberculosis Social History: household members family,children Prior Living Arrangements House Safety & Behavioral: Feels Safe in Current Yes Environment Been Physically Hurt or No Threatened By a Person Suicidal Ideation Description None Suicide Plan Description No Plan Tobacco & Substance use: Tobacco type cigarettes Smoking Status Current every day smoker alcohol intake current alcohol intake frequency 0-2 drinks per day Substance Use Type does not use Meds Home Medications and Allergies Home Medications Medication Instructions Recorded Confirmed Type Diabetic test strips #100 each 04/03/19 02/21/21 Rx calcium carbonate 200 mg-magnesium 200 tab PO DAILY 04/03/19 02/21/21 History oxide,carbonate 100 mg chew tablet (Pancho-Mag) vitamin B comp and C no.3 15 mg-10 1 cap PO DAILY 04/03/19 02/21/21 History mg-50 mg-5 mg-300 mg capsule (B Complex Plus Vitamin C) losartan 50 mg tablet 50 mg PO DAILY #90 tab 01/27/20 02/21/21 Rx metformin 500 mg tablet,extended 500 mg PO QPM #90 tab 01/27/20 02/21/21 Rx release 24 hr ondansetron 4 mg disintegrating 4 mg PO TID-QID PRN #10 tab 01/15/21 02/21/21 Rx tablet gabapentin 300 mg capsule 300 mg PO BEDTIME #30 cap 01/19/21 02/21/21 Rx nifedipine 30 mg tablet,extended 30 mg PO DAILY #30 tab 01/19/21 02/21/21 Rx release 24 hr Allergies Allergy/AdvReac Type Severity Reaction Status Date / Time sulfamethoxazole Allergy Unknown Verified 02/20/21 19:34 [From ] trimethoprim [From ] Allergy Unknown Verified 02/20/21 19:34 Review of Systems Review of Systems ROS: Yes All systems reviewed with the patient and are negative except as otherwise documented Exam Vital Signs (past 8 hours): - 02/21/21 04:05 02/21/21 08:05 02/21/21 09:00 Temperature 97.2 F L 97.3 F L Pulse Rate 64 59 L Respiratory Rate 18 16 Blood Pressure 146/76 H 120/64 Pulse Oximetry 95 94 94 02/21/21 09:21 02/21/21 10:54 02/21/21 11:09 Temperature 98.1 F 98.2 F Pulse Rate 66 65 Respiratory Rate 16 16 Blood Pressure 120/74 140/76 149/73 H Pulse Oximetry 94 96 Oxygen Delivery Method Room Air Oxygen Flow Rate 0 Narrative Exam Narrative: GENERAL-well developed adult female, no acute distress HEENT-no scleral icterus, hearing intact NECK-no JVD, trachea midline CVS- regular rate, no peripheral edema RESP-unlabored respiratory effort, no audible wheezing GI-, no peritonitis tender left lower quadrant MSK-no cyanosis or clubbing, extremities without deformity SKIN-warm, dry NEURO-alert and oriented, no focal deficits PYSCH-Appropriate mood and affect Objective Labs Result Diagrams: 02/20/21 21:40 02/20/21 21:40 Labs: Laboratory Results - last 24 hr 02/20/21 02/20/21 02/21/21 21:40 21:40 02:20 WBC 15.2 H RBC 5.07 Hgb 14.6 Hct 44.6 MCV 87.9 MCH 28.9 MCHC 32.8 RDW 14.3 Plt Count 198 Neut % (Auto) 83.2 H Lymph % (Auto) 6.6 L [place] % (Auto) 5.6 Eos % (Auto) 4.2 H Baso % (Auto) 0.4 Neut # (Auto) 62224 H Lymph # (Auto) 1000 L [place] # (Auto) 800 Eos # (Auto) 600 H Baso # (Auto) 100 Sodium 139 Potassium 3.9 Chloride 106 Carbon Dioxide 26 BUN 16 Creatinine 0.52 Estimated GFR > 60.0 BUN/Creatinine Ratio 30.8 H Glucose 162 H Calcium 9.2 Total Bilirubin 0.8 AST 40 H ALT 33 Alkaline Phosphatase 108 Total Protein 7.6 Albumin 4.1 Globulin 3.5 Albumin/Globulin Ratio 1.2 Lipase 50 Urine Color Urine Appearance Urine pH Ur Specific [place] Urine Protein Urine Glucose (UA) Urine Ketones Urine Occult Blood Urine Nitrate Urine Bilirubin Urine Urobilinogen Ur Leukocyte Esterase Urine RBC Urine WBC Ur Squamous Epith Cells Urine Bacteria Urine Mucus Ur Culture Indicated? SARS-CoV-2 (PCR) Negative 02/21/21 03:10 WBC RBC Hgb Hct MCV MCH MCHC RDW Plt Count Neut % (Auto) Lymph % (Auto) [place] % (Auto) Eos % (Auto) Baso % (Auto) Neut # (Auto) Lymph # (Auto) [place] # (Auto) Eos # (Auto) Baso # (Auto) Sodium Potassium Chloride Carbon Dioxide BUN Creatinine Estimated GFR BUN/Creatinine Ratio Glucose Calcium Total Bilirubin AST ALT Alkaline Phosphatase Total Protein Albumin Globulin Albumin/Globulin Ratio Lipase Urine Color Yellow Urine Appearance Clear Urine pH 5.0 Ur Specific [place] 1.010 Urine Protein 1+ H Urine Glucose (UA) Trace H Urine Ketones 1+ H Urine Occult Blood 3+ H Urine Nitrate Negative Urine Bilirubin Negative Urine Urobilinogen 0.2 Ur Leukocyte Esterase Negative Urine RBC 1-5/hpf Urine WBC None seen Ur Squamous Epith Cells 1-5 /hpf Urine Bacteria None seen Urine Mucus 2+ H Ur Culture Indicated? Cult not indicated SARS-CoV-2 (PCR) Assessment & Plan Assessment and plan (1) Abscess of sigmoid colon due to diverticulitis: Status: Acute Assessment & Plan narrative: 70 year old female type 2 diabetes presenting with complicated diverticulitis. CT abdomen pelvis reviewed demonstrates 4 cm abscess of the sigmoid colon with free fluid no free air. We discussed management options at this point which include antibiotic therapy and/or drainage of the intra-abdominal abscess. I explained to her that at 4 cm the abscess is unlikely to resolve entirely with just antibiotics and recommended that we proceed with drainage. We discussed laparoscopic drainage of intra-abdominal abscess and its operative risks including bleeding, infection, damage to surrounding structures. Her questions have been answered and she is in agreement with this plan.
--- NOTE | 2021-02-21 12:08 | SUR.OPER ---
Supine on padded OR bed, head on pillow, arms secured on padded arm boards at <90 degrees abduction, legs uncrossed, safety belt at thigh, tape over blanket over lower legs.
[2021-02-21] MEDS: CEFAZOLIN 1 GM VIAL 2 GM IV (12:35)
[2021-02-21] MEDS: BUPIVACAINE 0.5% (PF) VIAL 30 ML INJ (12:46)
--- NOTE | 2021-02-21 14:27 | P.OP_ITS ---
Operative Date/Time/Diagnoses Date of procedure: 02/21/21 Time of procedure: 14:27 Pre-op diagnosis: sigmoid abscess Post-op diagnosis: same Procedure & Clinicians Procedure: laparoscopic drainage of intra abdominal absces Same procedure as scheduled: Yes Indications: 4 cm sigmoid diverticular abscess Surgeon: Scott Mohr Anesthesia Type: General Operative Notes Findings: sigmoid abscess 4 cm with adherent small bowel. Estimated Blood Loss (mL): 200 Procedure in detail: Patient was brought to the operating room placed supine on the table. Bilateral lower extremity compression devices were applied. General anesthesia was induced she was intubated with an endotracheal tube. She was receiving Zosyn prior to the operation received 2 g of Ancef prior to skin incision. The umbilical stalk was grasped and elevated fascia was sharply incised abdomen was entered atraumatically. 12 mm balloon trocar was then placed into the abdomen and pneumoperitoneum was established. The working ports were placed 5 mm suprapubic and right lower quadrant. Exploration of the abdomen demonstrated a small amount of turbid fluid in the pelvis, a loop of s mall bowel was densely adherent to the sigmoid colon. Using careful blunt dissection the structures were and this revealed a phlegmon/abscess along the midportion of the sigmoid colon. The loculations were broken and material from the abscess was sent for culture. I made a 1 cm incision in the left lower quadrant in order to accommodate my finger which was used to bluntly dissect the remaining cavity. There was bleeding from the anterior abdominal wall which was controlled using a Corey Patricia with 0 Vicryl suture from the left lower quadrant likely a branch off of the inferior epigastric artery. Hemostasis was achieved. A 19 Citizen Of [place] Jack drain was then placed along the left sidewall adjacent to the abscess and into the pelvis. Fascia was closed with 0 Vicryl suture in [id number] fashion skin closed with Monocryl followed by the application of Dermabond. Complications: none Post-operative Condition: stable Disposition: Acute Care
[2021-02-21] MEDS: ALBUTEROL/IPRATROPIUM 3 ML AMPUL INH (14:32)
--- NOTE | 2021-02-21 14:39 | SUR.PHASEI ---
Pt arrived to PACU, coughing, copious amounts of sputum, Douneb ordered and administered. Pt using yanker to help with secretions.
[2021-02-21] MEDS: HYDROMORPHONE 2 MG INJ IV (14:51)
--- NOTE | 2021-02-21 14:56 | SUR.PHASEI ---
Lungs with scattered rhonchi,less after breathing treatment, pt able to use yanker to help suction phelm coughed up. Phelm clear and at times frothy.
--- NOTE | 2021-02-21 15:24 | SUR.PHASEI ---
Pt with less coughing, anterior uppers clear, diminished in bases. )2 on at 2/l rr 17nonlabored. Drain dressing to r abdomen reinforced, splint when coughing instructed, report given. Pt transported upm on 2/l nasal cannula.
--- NOTE | 2021-02-21 15:55 | SUR.PHASEI ---
Pt left in room 218 in stable condition with Ghazala RN and Abdulkadir HUTCHINSON , bed low, locked SCD's on and call haile in reach, pt made aware not to get OOB w/o assist of staff, pt voiced an understanding, Glasses in black eye bag left on overhead table.
--- NOTE | 2021-02-21 16:42 | CM.DANOTE ---
DCP ASSESSMENT : Patient is a 70 year-old female admitted for stomach pain, sigmoid diverticulitis with an abscess. PCP Hunter Ashraf. Primary payer Medicare and [employer]. Patient was seen in the ER on 01/15 for stomach pain. Patient has surgery scheduled for 12pm today. LAND CLEARER Student met with patient at bedside she was alert and oriented. Provided education on role of social work in discharge planning. Patient reported she lives with her son Arcenio and daughter Nely . Patient is independent at baseline including driving. Patient would like to discharge home after she is medically stable. PLAN: CM Team to continue to follow, patient has surgery at 12pm today. ZELALEM Wells MSW Student Discharge Planning/Care Management CM Discharge Assessment Start: 02/21/21 09:33 Freq: Status: Active Protocol: Document 02/21/21 09:33 AL (Rec: 02/21/21 09:37 AL [id number]) Discharge Planning Assessment Assigned Firewall Engineer ZELALEM Sevilla Student Contact Information Nely Moeller, daughter Advance Directives? No History Provided By Patient,Medical Record Has Patient been admitted in last 30 Yes days? Comment 01/15/21 Stomach ache Prior Living Arrangements House Household Members family,children Comment Lives with her daughter Nely and son Og Type of transporation used prior to Drives own vehicle admit Independent with ADL's Yes Is patient alert and oriented? Yes Caregiver for Another No Barriers to Discharge No Discharge Plan Home Transportation Arrangement Daughter Nely will provide transportation Whiteboard Updated in Patient Room with Yes name and ext. # of Firewall Engineer Review Status In Process
[2021-02-21] MEDS: OXYCODONE IR 5 MG TABLET PO (17:10)
[2021-02-21] MEDS: GABAPENTIN 300 MG CAPSULE PO (20:37)
--- NOTE | 2021-02-21 21:14 | PC.NURSE ---
Pt has been resting quietly at intervals Lungs clear/diminished, SpO2 96% 2L O2 Pt has occassional phlegm, pt usin Med at 1710 w/oxy for discomfort w/relief AC CBG = 129 HS = 142, no coverage required. IVF infusing into RAC via pump as per MD orders w/o incidence. Stable post op course. Pancho light w/in reach, bed alarm on for pt safety. Continue w/plan of care.
[2021-02-21] MEDS: PIPERACILLIN/TAZO 3.375 GM in SODIUM CHLORIDE 0.9% 100 ML 25 ML IV (22:15)
[2021-02-22] VITALS (14 sets, daily range): BP systolic 117–140; BP diastolic 62–77; PULSE 56–70; RESP 15–24; TEMP 36.6–37.1; O2SAT 94–99
[2021-02-22] MEDS: OXYCODONE IR 5 MG TABLET PO ×2 (00:15→05:38)
[2021-02-22] MEDS: PIPERACILLIN/TAZO 3.375 GM in SODIUM CHLORIDE 0.9% 100 ML 25 ML IV ×3 (05:39→22:29)
[2021-02-22 06:58] LABS: Add Manual Diff / Slide Review NO; Basophils Absolute Auto 100 /uL (0-100); Basophils Percent Auto 0.6 % (0-2); Eosinophils Absolute Auto 700 /uL (0-450); Eosinophils Percent Auto 7.5 % (2-4); Hematocrit 35.3 % (36-46); Hemoglobin 11.7 g/dL (12.0-16.0); Lymphocytes Absolute Auto 1100 /uL (1100-4500); Mean Corpuscular HGB Conc 33.1 % (30-36); Mean Corpuscular Hemoglobin 29.2 PG (26-34); Mean Corpuscular Volume 88.4 fL (80-100); Monocytes Absolute Auto 700 /uL (0-900); Monocytes Percent Auto 7.3 % (3-14); Neutrophils Absolute Auto 6600 /uL (1500-7000); Neutrophils Percent Auto 72.6 % (50-75); Platelet Count 168 X10^3/uL (150-400); Red Cell Distribution Width 14.4 % (11.6-14.8); White Blood Cell Count 9.1 X10^3/uL (4.5-11.0)
[2021-02-22 07:04] LABS: BUN Creatinine Ratio 16.2 (6-22); Blood Urea Nitrogen 11 mg/dL (7-17); Calcium 8.2 mg/dL (8.4-10.2); Carbon Dioxide 24 mmol/L (22-32); Chloride 107 mmol/L (98-107); Estimated Glomerular Filt Rate > 60.0 mL/min (>60); Glucose 115 mg/dL (80-110); HEMOLYSIS < 15 (0-50); Potassium 3.6 mmol/L (3.4-5.1); Sodium 138 mmol/L (137-145)
[2021-02-22] MEDS: LOSARTAN 50 MG TABLET PO (09:39)
[2021-02-22] MEDS: NIFEdipine 30 MG TAB ER PO (09:39)
[2021-02-22] MEDS: KETOROLAC 30 MG/ML VIAL 15 MG IV ×2 (10:33→16:51)
[2021-02-22] MEDS: OXYCODONE IR 10 MG TABLET PO ×3 (10:33→19:24)
--- NOTE | 2021-02-22 15:18 | PC.NURSE ---
Pain issues this am. Asking for more pain med 3 hrs after her last dose, pain was up to a 9-10/10. Message sent to md. See new orders. Recieved oxy 10mg and toradal. Pt reports both meds were effective for pain. Does have morphine available as well but she declined this for now. Discussed with pt getting up and moving more. She was agreeable to amb this evening since she is now having better pain control.
[2021-02-22] MEDS: ENOXAPARIN 40 MG/0.4 ML SYRINGE SUBCUT (16:12)
--- NOTE | 2021-02-22 17:49 | PM.PNPO.1 ---
Subjective Subjective Interval history: Patient feels a little better today than last night. She is trying to breath deeply. Taking po slowly Exam Vital Signs (past 8 hours): - 02/22/21 11:03 02/22/21 15:20 Temperature 98.5 F 98.1 F Pulse Rate 70 56 L Respiratory Rate 16 16 Blood Pressure 140/77 117/64 Pulse Oximetry 96 Oxygen Delivery Method Nasal Cannula Oxygen Flow Rate 1 Narrative Exam Narrative: lungs are clear. Fair effort. No rales. Abdomen is a little distended. Some blood tinged drainage around her drain site/ Abdomen minimally tender in RLQ. Drainage sero-sanguinous. Objective Labs Result Diagrams: 02/22/21 06:00 02/22/21 06:00 Labs: Laboratory Results - last 24 hr 02/22/21 02/22/21 06:00 06:00 WBC 9.1 RBC 4.00 Hgb 11.7 L Hct 35.3 L MCV 88.4 MCH 29.2 MCHC 33.1 RDW 14.4 Plt Count 168 Neut % (Auto) 72.6 Lymph % (Auto) 12.0 L [place] % (Auto) 7.3 Eos % (Auto) 7.5 H Baso % (Auto) 0.6 Neut # (Auto) 6600 Lymph # (Auto) 1100 [place] # (Auto) 700 Eos # (Auto) 700 H Baso # (Auto) 100 Sodium 138 Potassium 3.6 Chloride 107 Carbon Dioxide 24 BUN 11 Creatinine 0.68 Estimated GFR > 60.0 BUN/Creatinine Ratio 16.2 Glucose 115 H Calcium 8.2 L PFSH Medical History Abnormal thyroid blood test Bradycardia Hyperlipidemia Screening for malignant neoplasm of colon Surgical History Anesthesia History of endometriosis (~2004) Status post delivery (~1981) Family History Father Asthma Grandmother Tuberculosis Social History household members: family and children Smoking Status: Current every day smoker Tobacco: How many years used: 40 second hand exposure: Yes alcohol intake: current Assessment & Plan Post-op Postoperative Procedures: Procedures Operation Date: 02/21/21 12:45 Actual Procedure Side Surgeon p Laparoscopic drainage of intra abdominal abscess Scott Mhor MD Postoperative status: doing well Postoperative status narrative: doing as expected. Postoperative plan narrative: advised to get up in chair and work on deep breathing. PO as tolerated. Pain meds changed. Added dvt prophylaxis with lovenox.
[2021-02-22] MEDS: INSULIN LISPRO 100 UNIT/ML 3ML VIAL SUBCUT (18:12)
[2021-02-22] MEDS: LACTATED RINGERS 1,000 ML 42 ML IV (20:29)
[2021-02-22] MEDS: GABAPENTIN 300 MG CAPSULE PO (20:29)
--- NOTE | 2021-02-22 22:33 | PC.NURSE ---
pt ambulate in hallways. pt passed gas afterwards. pt tolerated her clear liquid diet. pt desat to 85% RA while sleeping. now on 1L 94%. otherwise 95% RA while awake.
[2021-02-23] VITALS (17 sets, daily range): BP systolic 92–143; BP diastolic 53–70; PULSE 54–87; RESP 16–18; TEMP 36.1–37.5; O2SAT 81–99
[2021-02-23] MEDS: OXYCODONE IR 10 MG TABLET PO ×4 (00:42→14:50)
[2021-02-23] MEDS: PIPERACILLIN/TAZO 3.375 GM in SODIUM CHLORIDE 0.9% 100 ML 25 ML IV (05:32)
[2021-02-23 06:16] LABS: Add Manual Diff / Slide Review NO; Basophils Absolute Auto 100 /uL (0-100); Basophils Percent Auto 0.8 % (0-2); Eosinophils Absolute Auto 1100 /uL (0-450); Eosinophils Percent Auto 13.7 % (2-4); Hematocrit 32.1 % (36-46); Hemoglobin 10.9 g/dL (12.0-16.0); Lymphocytes Absolute Auto 1200 /uL (1100-4500); Lymphocytes Percent Auto 14.4 % (25-40); Mean Corpuscular HGB Conc 34.1 % (30-36); Mean Corpuscular Hemoglobin 30.1 PG (26-34); Mean Corpuscular Volume 88.2 fL (80-100); Monocytes Absolute Auto 600 /uL (0-900); Neutrophils Absolute Auto 5300 /uL (1500-7000); Neutrophils Percent Auto 64.1 % (50-75); Platelet Count 186 X10^3/uL (150-400); Red Blood Cell Count 3.63 X10^6/uL (4.0-5.2); Red Cell Distribution Width 14.1 % (11.6-14.8); White Blood Cell Count 8.3 X10^3/uL (4.5-11.0)
[2021-02-23 06:22] LABS: BUN Creatinine Ratio 13.3 (6-22); Blood Urea Nitrogen 8 mg/dL (7-17); Calcium 8.1 mg/dL (8.4-10.2); Carbon Dioxide 28 mmol/L (22-32); Chloride 105 mmol/L (98-107); Estimated Glomerular Filt Rate > 60.0 mL/min (>60); Glucose 104 mg/dL (80-110); HEMOLYSIS < 15 (0-50); Potassium 3.4 mmol/L (3.4-5.1); Sodium 137 mmol/L (137-145)
[2021-02-23] MEDS: NIFEdipine 30 MG TAB ER PO (08:40)
[2021-02-23] MEDS: KETOROLAC 30 MG/ML VIAL 15 MG IV ×2 (08:40→19:53)
[2021-02-23] MEDS: ENOXAPARIN 40 MG/0.4 ML SYRINGE SUBCUT (08:40)
[2021-02-23] MEDS: LOSARTAN 50 MG TABLET PO (08:40)
--- NOTE | 2021-02-23 09:45 | P.PN_ITS ---
Subjective Subjective Date Patient Seen: 02/23/21 Time Patient Seen: 09:45 Interval history: No acute events. Abdominal pain has improved from yesterday. Ambulating to the restroom. Exam Vital Signs (past 8 hours): - 02/23/21 03:00 02/23/21 04:20 02/23/21 07:32 Temperature 98.5 F 98.4 F Pulse Rate 60 77 Respiratory Rate 18 16 Blood Pressure 117/57 L 134/56 L Pulse Oximetry 95 95 95 02/23/21 08:40 Temperature Pulse Rate Respiratory Rate Blood Pressure 134/56 L Pulse Oximetry Oxygen Delivery Method Room Air Oxygen Flow Rate 2 Narrative Exam Narrative: General adult woman alert oriented no acute distress. Abdomen soft mildly tender left lower quadrant. Incisions clean dry intact. Drain serosanguineous. Objective Labs Result Diagrams: 02/23/21 05:42 02/23/21 05:42 Labs: Laboratory Results - last 24 hr 02/23/21 02/23/21 05:42 05:42 WBC 8.3 RBC 3.63 L Hgb 10.9 L Hct 32.1 L MCV 88.2 MCH 30.1 MCHC 34.1 RDW 14.1 Plt Count 186 Neut % (Auto) 64.1 Lymph % (Auto) 14.4 L [place] % (Auto) 7.0 Eos % (Auto) 13.7 H Baso % (Auto) 0.8 Neut # (Auto) 5300 Lymph # (Auto) 1200 [place] # (Auto) 600 Eos # (Auto) 1100 H Baso # (Auto) 100 Sodium 137 Potassium 3.4 Chloride 105 Carbon Dioxide 28 BUN 8 Creatinine 0.60 Estimated GFR > 60.0 BUN/Creatinine Ratio 13.3 Glucose 104 Calcium 8.1 L [facility] Medical History Abnormal thyroid blood test Bradycardia Hyperlipidemia Screening for malignant neoplasm of colon Surgical History Anesthesia History of endometriosis (~2004) Status post delivery (~1981) Family History Father Asthma Grandmother Tuberculosis Social History household members: family and children Smoking Status: Current every day smoker Tobacco: How many years used: 40 second hand exposure: Yes alcohol intake: current Assessment & Plan Post-op Postoperative Procedures: Procedures Operation Date: 02/21/21 12:45 Actual Procedure Side Surgeon p Laparoscopic drainage of intra abdominal abscess cSott Mohr MD Postoperative status narrative: 70-year-old female postoperative day 2 status post laparoscopic drainage of intra-abdominal abscess for complicated diverticulitis. She is progressing as expected. Resolution of leukocytosis, microbiology cultures finalized. -advance to diabetic diet -DC IV fluids and Zosyn -start p.o. ciprofloxacin and Flagyl with plan for 1 week treatment after discharge -SCDs and Lovenox -out of bed ambulate physical therapy consult -drain removal today -if tolerating diet no leukocytosis after switching to oral antibiotics and oxygen weaned to off may discharge tomorrow
[2021-02-23] MEDS: metroNIDAZOLE 500 MG TABLET PO ×2 (14:50→20:56)
[2021-02-23] MEDS: POTASSIUM CHLORIDE 20 MEQ TAB 40 MEQ PO ×2 (14:50→19:41)
--- NOTE | 2021-02-23 15:30 | PT.IIE ---
Current Diagnoses Diverticulitis of large intestine with perforation and abscess without bleeding (02/21/21) Surgery Performed Operation Date: 02/21/21 12:45 Actual Procedures p Laparoscopic drainage of intra abdominal abscess - Scott Mohr MD Surgical History (Last Reviewed 02/22/21 @ 17:52 by Justus Gibbons MD) Anesthesia History of endometriosis (~2004) Status post delivery (~1981) Medical History (Last Reviewed 02/22/21 @ 17:52 by Justus Gibbons MD) Abnormal thyroid blood test Bradycardia Hyperlipidemia Screening for malignant neoplasm of colon Physical Therapy Inpatient Evaluation/Re-Eval M1 PT/OT-IP Prior Functional Status Start: 02/23/21 17:09 Freq: NEEDED Status: Active Protocol: Document 02/23/21 15:30 AB (Rec: 02/23/21 17:28 AB [id number]) Medical Review Prior Functional Status Medical History Reviewed Yes Communication able to make needs known Mobility and Gait pt stated that she is independent with all mobilities and ambulation without AD Social History Household Members family,children Living Arrangements House Number of Floors (Floors) Two Floors Number of Stairs To Enter/Railing? pt stays on main level of the house has 3 steps wide bilateral rails and can only hold on to 1 rail at a time Home Environment Standard Height Toilet,Tub/ Shower Employment Status Retired Additional Social History Comment pt's son and girlfriend lives with pt and can assist pt as needed M2 PT-IP Current Condition Start: 02/23/21 17:09 Freq: NEEDED Status: Active Protocol: Document 02/23/21 15:30 AB (Rec: 02/23/21 17:28 AB [id number]) Physical Therapy Current Condition Current Condition Evaluation Date 02/23/21 Treatment Diagnosis sigmoid colon abscess s/p lap drainage; difficulty in walking Onset Date 02/21/21 Precautions Abdominal Surgery Precautions Log Roll,Lifting Restrictions, Gait Belt above Incisional Area M3 PT-IP Subjective Start: 02/23/21 17:09 Freq: NEEDED Status: Active Protocol: Document 02/23/21 15:30 AB (Rec: 02/23/21 17:28 AB [id number]) Subjective Physical Therapy Visit Type Type Initial Evaluation Visit Start Time 15:30 Visit Stop Time 16:15 Total Visit Minutes 45 Number of PURCHASING BUYER Visits 0 Physical Therapy Visit Comments Patient Comments pt is agreeable to do PT Therapy Pain Assessment Pain When Pain Assessed At Rest Pain Present Pain Present Pain Reported Location abd Intensity 9 Scale Used Numeric (0 - 10) Pain Behaviors Facial Grimacing,Guarding Pain Management Techniques Apply Cold,Distraction, Elevation,Modification of Treatment,Re-positioning, Timing of Activity with Medications M4 PT-IP Mobility and Gait Start: 02/23/21 17:09 Freq: NEEDED Status: Active Protocol: Document 02/23/21 15:30 AB (Rec: 02/23/21 17:28 AB [id number]) PT-Bed Mobility Assessment Rolling Type of Rolling Log Rolling Level of Assist Minimal Assistance Supine to Sit Supine to Sit Minimal Assistance Sit to Supine Sit to Supine Standby Assistance Scooting Scooting to Edge of Bed Standby Assistance PT-Transfer Assessment Sit to and From Stand Sit to and from Stand Contact Guard Assistance,1 Person Assistance,Use of Upper Extremities Equipment Transfer Assistive Device Gait Belt,Front Wheeled Walker Orthotic/Prosthetic Devices or Brace: No Transfers Transfer Destination Toilet Transfer Technique ambulated Transfer Ability Level of Assist Standby Assistance,1 Person Assistance,Use of Upper Extremities Comments Mobility Comments educated pt regarding abdominal precautions and log roll bed mobility. pt completed log roll supine to sit min A and cues. pt completed sit to stand CGA and ambulated using FWW to the toilet SBA. completed toileting needs without assitance. ambulated using FWW towards the sink SBA and was able to maintain standing SBA while completing handwashing. pt agreed to walk in the hallway and completed ~ 200 ft using FWW SBA. pt ambulated back to her room. assessed ambulation without AD ~ 30 ft min A and cues and presents with very guarded gait and decrease LE elevation. pt is steadier with FWW and pt also stated that she feels safer with FWW. pt ambulated back to bedusing fWW SBA. completed sit to supine log roll SBA with cues for techniques. positioned in bed call light and table placed within reach. DME list provided to pt and informed regarding borrowing FWW or purchasing. pt stated that she will tell her daughter/son. will f/u. nurse came in and asked how's pt's O2 sat. informed nurse that pt did not c/o SOB and that pt came in for abdominal problem and PT did not know that O2 sat has to be monitored since pt was not on O2 when PT came in and oximeter was not on pt and nurse's are not monitoring her O2. nurse informed that previously, pt's O2 sat was dropping at room air. informed nurse that PT was not informed and no documentaion decrease O2 sat was seen when PT reviewed EMR. Left pt with nurse. Gait Assessment Gait Gait Assistance Required: Standby Assistance,Minimum Assistance,1 Person Assist Distance (Feet) 200 Able to Maintain Weight Bearing Status Yes During Gait Assistive Devices Assistive Device None,Gait Belt,Front Wheeled Walker Orthotic/Prosthetic Devices or Brace: No Gait Deviations General Gait Pattern Ataxic,Decreased Stride Length ,Decreased Feet Clearance,Step -to Gait Factors Limiting Gait Function Factors Limiting Gait Function Decreased Activity Tolerance, Decreased Strength,Limited Range of Motion,Pain,Poor Balance PT-Balance Assessment Sitting Balance and Reactions Static Sitting Balance Ability Good Dynamic Sitting Balance Ability Good Standing Balance and Reactions Static Standing Balance Ability Good Dynamic Standing Balance Ability Fair Device Used without AD M5 PT-IP Objective Assessments Start: 02/23/21 17:09 Freq: NEEDED Status: Active Protocol: Document 02/23/21 15:30 AB (Rec: 02/23/21 17:28 AB [id number]) Orientation Orientation/Cognition Level of Alertness Alert Orientation Name,Place,Situation Language Function Ability No Deficits Noted Safety Awareness Understands Safety Issues Memory Description No Deficits Noted Gross Range of Motion Lower Extremity ROM Assessment Within Functional Limits Strength Lower Extremity Strength Assessment Within Functional Limits Coordination Assessment Gross Coordination Gross Coordination WNL Sensation Assessment Sensation Gross Sensation WNL Muscle Tone Muscle Tone WNL Yes M6 PT-IP Treatment Start: 02/23/21 17:09 Freq: NEEDED Status: Active Protocol: Document 02/23/21 15:30 AB (Rec: 02/23/21 17:28 AB [id number]) Physical Therapy Treatment Education Education Provided Precautions,Safety Other Treatments Other Treatment Performed provided with DME list and log roll bed mobility handout M7 PT-IP Assessment and Plan Start: 02/23/21 17:09 Freq: NEEDED Status: Active Protocol: Document 02/23/21 15:30 AB (Rec: 02/23/21 17:28 AB [id number]) PT Summary Assessment and Plan Potential Rehabilitation Potential Good Status of Condition at Evaluation Stable Summary Impairments Pain,ROM,Strength,Balance, Coordination,Bed Mobility, Transfers,Gait,Activity Tolerance Assessment Summary pt requiring SBA with ambulation using FWW, min A without AD. pt stated that she will try to obtain a FWW. will have to f/u if pt was able to get one prior to d/c. Stair climbing training also needs to be conducted prior to d/c. pt plans to go home and family to assist her. Goals Bed Mobility Goal Independent Transfer Goal Independent,Front Wheeled Walker Gait Goal Independent,Front Wheel Walker Gait Distance 250 Other Goals ambulation without AD SBA 100 ft up/down 3 steps 1 rail SBA Days to Meet Goals 5 Frequency of Treatment Frequency Of Treatment Once a Day Treatment Plan Physical Therapy Treatment Plan Bed Mobility Training,Transfer Training,Gait Training, Therapeutic Exercise,Balance Retraining,Post Op Education, Discharge Planning,Hot or Cold Pack,Neuromuscular Re-ed, Coordination Retraining Other Recommendations and Next Treatment ambulation using FWW/without Focus AD: monitor O2 sat; log roll bed mobility, stair climbing Precautions Abdominal Surgery Precautions Log Roll,Lifting Restrictions, Gait Belt above Incisional Area Recommendations To Nursing Amount of Assist Needed 1 Person Assist Discharge Recommendations PT Discharge Recommendations Home with Assistance,Home Health Equipment Needed for Home Before FWW Discharge Transportation Needs at Discharge Private Vehicle
--- NOTE | 2021-02-23 15:57 | CM.DPNOTE ---
Addendum entered by ZELALEM Higgins 02/24/21 13:10: DC Note: patient DC this morning by surgical team. According to [facility] Cint[facility], patient/family denied the need for HH at this time, patient eager to return home w/supportive family, no needs indicated from this CORPORATE STAFF ACCOUNTANT Original Note: DCP Note According to discussion in multidisciplinary rounds, patient remains on clear liquids as of this morning. Supportive family at bedside, plan remains DC home w/family when medically stable, DC date unknown at this time. Following closely for coordination of any DC needs or concerns that might arise. R/o need for HH JW
[2021-02-23] MEDS: INSULIN LISPRO 100 UNIT/ML 3ML VIAL SUBCUT (17:17)
[2021-02-23] MEDS: GABAPENTIN 300 MG CAPSULE PO (20:55)
[2021-02-23] MEDS: OXYCODONE IR 5 MG TABLET PO (20:55)
[2021-02-23] MEDS: CIPROFLOXACIN 250 MG TABLET 500 MG PO (20:56)
[2021-02-23] MEDS: SODIUM CHLORIDE 0.9% FLUSH 10 ML IV (21:10)
--- NOTE | 2021-02-23 22:56 | PC.NURSE ---
Addendum entered by Lolita Palumbo R.N. 02/23/21 22:59: Pt is A&OX4, able to make needs known. was on attempting to wean O2and pt was on RA but desated to low 80's. replaced on O2 2l and sats increased to 94%. Pt lungs are diminished throughout and tight. IS up yo 500. pt is a shallow breather and has difficulty taking deep breaths. IS up to 500 but no real aeration appreciated . Pt up to BSC to void with SBA, chems AC 155 & HS 138 abdominal pain medicated with toradol with minimal relief, oxycodone 5mg po effective to decrease pain to tolerable level. Plan to Dc if can ubaldo off O2, maintain without Leukocytosis , AM CBC and BMP ordered, and tolerate diet. Pt hads had minimal intake this evening. Surgeon removed Jack drain today. Original Note: Pt is A&OX4, able to make needs known. was on attempting to wean O@ pt was on RA and desated to low 80's placed on O2 2l sats increased to 94%. Pt lungs are diminished throughout and tight. IS up yo 5900 difficulty taking dep breaths
[2021-02-24] VITALS (7 sets, daily range): BP systolic 130–154; BP diastolic 67–75; PULSE 72–86; RESP 15–18; TEMP 36.7–37; O2SAT 93–95
[2021-02-24] MEDS: OXYCODONE IR 5 MG TABLET PO ×2 (04:43→10:45)
[2021-02-24 06:35] LABS: Add Manual Diff / Slide Review NO; Basophils Absolute Auto 0 /uL (0-100); Basophils Percent Auto 0.7 % (0-2); Eosinophils Absolute Auto 900 /uL (0-450); Eosinophils Percent Auto 13.5 % (2-4); Hematocrit 31.4 % (36-46); Hemoglobin 10.6 g/dL (12.0-16.0); Lymphocytes Absolute Auto 900 /uL (1100-4500); Lymphocytes Percent Auto 12.9 % (25-40); Mean Corpuscular HGB Conc 33.7 % (30-36); Mean Corpuscular Hemoglobin 29.6 PG (26-34); Mean Corpuscular Volume 87.9 fL (80-100); Monocytes Absolute Auto 500 /uL (0-900); Monocytes Percent Auto 7.7 % (3-14); Neutrophils Absolute Auto 4600 /uL (1500-7000); Neutrophils Percent Auto 65.2 % (50-75); Platelet Count 217 X10^3/uL (150-400); Red Blood Cell Count 3.58 X10^6/uL (4.0-5.2); Red Cell Distribution Width 13.7 % (11.6-14.8)
[2021-02-24] MEDS: CIPROFLOXACIN 250 MG TABLET 500 MG PO (06:35)
[2021-02-24 06:42] LABS: BUN Creatinine Ratio 14.9 (6-22); Blood Urea Nitrogen 7 mg/dL (7-17); Calcium 8.5 mg/dL (8.4-10.2); Carbon Dioxide 28 mmol/L (22-32); Chloride 105 mmol/L (98-107); Estimated Glomerular Filt Rate > 60.0 mL/min (>60); Glucose 118 mg/dL (80-110); HEMOLYSIS < 15 (0-50); Sodium 138 mmol/L (137-145)
[2021-02-24] MEDS: ENOXAPARIN 40 MG/0.4 ML SYRINGE SUBCUT (09:15)
[2021-02-24] MEDS: LOSARTAN 50 MG TABLET PO (09:16)
[2021-02-24] MEDS: metroNIDAZOLE 500 MG TABLET PO (09:17)
[2021-02-24] MEDS: SODIUM CHLORIDE 0.9% FLUSH 10 ML IV (09:17)
[2021-02-24] MEDS: NIFEdipine 30 MG TAB ER PO (09:17)
--- NOTE | 2021-02-24 10:30 | PT.IPTN ---
Current Diagnoses Diverticulitis of large intestine with perforation and abscess without bleeding (02/21/21) Surgery Performed Operation Date: 02/21/21 12:45 Actual Procedures p Laparoscopic drainage of intra abdominal abscess - Scott Mohr MD Physical Therapy Treatment Note M2 PT-IP Current Condition Start: 02/23/21 17:09 Freq: NEEDED Status: Active Protocol: Document 02/23/21 15:30 AB (Rec: 02/23/21 17:28 AB [id number]) Physical Therapy Current Condition Current Condition Evaluation Date 02/23/21 Treatment Diagnosis sigmoid colon abscess s/p lap drainage; difficulty in walking Onset Date 02/21/21 Precautions Abdominal Surgery Precautions Log Roll,Lifting Restrictions, Gait Belt above Incisional Area M3 PT-IP Subjective Start: 02/23/21 17:09 Freq: NEEDED Status: Active Protocol: Document 02/24/21 10:30 AB (Rec: 02/24/21 13:06 AB [id number]) Subjective Physical Therapy Visit Type Type Treatment Note Visit Start Time 10:30 Visit Stop Time 11:05 Total Visit Minutes 35 Number of CARE ASSISTANT Visits 0 Physical Therapy Visit Comments Patient Comments agreed to do PT Therapy Pain Assessment Pain When Pain Assessed At Rest Pain Present Pain Present Pain Reported Location abd Intensity 6 Scale Used Numeric (0 - 10) Pain Management Techniques Distraction,Modification of Treatment,Re-positioning, Timing of Activity with Medications M4 PT-IP Mobility and Gait Start: 02/23/21 17:09 Freq: NEEDED Status: Active Protocol: Document 02/24/21 10:30 AB (Rec: 02/24/21 13:06 AB [id number]) PT-Bed Mobility Assessment Rolling Type of Rolling Log Rolling Level of Assist Standby Assistance Supine to Sit Supine to Sit Standby Assistance Sit to Supine Sit to Supine Standby Assistance PT-Transfer Assessment Sit to and From Stand Sit to and from Stand Standby Assistance Equipment Transfer Assistive Device Gait Belt,Front Wheeled Walker Orthotic/Prosthetic Devices or Brace: No Transfers Transfer Destination Toilet Transfer Technique ambulated Transfer Ability Level of Assist Standby Assistance,Use of Upper Extremities Comments Mobility Comments pt's daughter in the room. informed daughter regarding fWW need for pt and stated that she will buy one at [employer]. pt agreed to do PT. completed log roll supine to sit SBA. completed sit to stand SBA and ambulated to the toilet using FWW SBA. pt completed toileting needs without assistance. ambulated towards the sink using FWW SBA. pt was able to maintain standing SBA while completing handwashing, grooming needs. agreed to walk in the hallway and completed ~ 200 ft using FWW SBA. completed up/down 3 steps L rail SBA. pt ambulated more and completed > 300 ft using FWW SBA. ambulated back to her room. completed bed mobility sit to supine SBA log roll. positioned in bed. call light and table placed within reach . O2 sat during ambulation: 89- 90%. pt without c/o SOB. Gait Assessment Gait Gait Assistance Required: Standby Assistance Distance (Feet) 300 Able to Maintain Weight Bearing Status Yes During Gait Assistive Devices Assistive Device Gait Belt,Front Wheeled Walker Orthotic/Prosthetic Devices or Brace: No Gait Deviations General Gait Pattern Decreased Stride Length, Decreased Feet Clearance Factors Limiting Gait Function Factors Limiting Gait Function Decreased Activity Tolerance, Decreased Strength,Limited Range of Motion,Pain,Poor Safety Awareness Comments Gait Comments pls refer to mobility section for details presents with slow bebe and decrease stride length Stair Climbing Assessment Evaluation Level of Assist On Stairs Standby Assistance Devices Stair Climbing Assistive Devices Left Railing Technique/Endurance Stair Climbing Direction Ascend and Descend Stair Climbing Technique Step Over Step Number of Steps Climbed 3 Stair Climbing Set # Repetitions (reps) 1 M5 PT-IP Objective Assessments Start: 02/23/21 17:09 Freq: NEEDED Status: Active Protocol: Document 02/23/21 15:30 AB (Rec: 02/23/21 17:28 AB [id number]) Orientation Orientation/Cognition Level of Alertness Alert Orientation Name,Place,Situation Language Function Ability No Deficits Noted Safety Awareness Understands Safety Issues Memory Description No Deficits Noted Gross Range of Motion Lower Extremity ROM Assessment Within Functional Limits Strength Lower Extremity Strength Assessment Within Functional Limits Coordination Assessment Gross Coordination Gross Coordination WNL Sensation Assessment Sensation Gross Sensation WNL Muscle Tone Muscle Tone WNL Yes M6 PT-IP Treatment Start: 02/23/21 17:09 Freq: NEEDED Status: Active Protocol: Document 02/24/21 10:30 AB (Rec: 02/24/21 13:06 AB [id number]) Physical Therapy Treatment Education Education Provided Safety M7 PT-IP Assessment and Plan Start: 02/23/21 17:09 Freq: NEEDED Status: Active Protocol: Document 02/24/21 10:30 AB (Rec: 02/24/21 13:06 AB [id number]) PT Summary Assessment and Plan Potential Rehabilitation Potential Good Summary Impairments Pain,ROM,Strength,Balance, Coordination,Sensation,Tone, Cognition,Bed Mobility, Transfers,Gait,Activity Tolerance Progress Towards Goals Progressing Toward Goals Assessment Summary pt is progressing with mobility requiring SBA using FWW. pt's daughter will acquire a FWW for pt. pt plans to go home with family to assist her. pt may go home when medically stable. Goals Bed Mobility Goal Independent Transfer Goal Independent,Front Wheeled Walker Gait Goal Independent,Front Wheel Walker Gait Distance 250 Other Goals ambulation without AD SBA 100 ft up/down 3 steps 1 rail SBA Days to Meet Goals 5 Frequency of Treatment Frequency Of Treatment Once a Day Treatment Plan Physical Therapy Treatment Plan Bed Mobility Training,Transfer Training,Gait Training, Therapeutic Exercise,Balance Retraining,Post Op Education, Discharge Planning,Hot or Cold Pack,Neuromuscular Re-ed, Coordination Retraining Precautions Abdominal Surgery Precautions Log Roll,Lifting Restrictions, Gait Belt above Incisional Area Recommendations To Nursing Amount of Assist Needed Standby Assistance Discharge Recommendations PT Discharge Recommendations Home with Assistance,Home Health Transportation Needs at Discharge Private Vehicle
--- NOTE | 2021-02-24 10:37 | PC.NURSE ---
Addendum entered by Saida Batres R.N. 02/24/21 13:05: Patient given discharge education regarding medication, follow up appointment, s/s of worsening condition, activity, and wound care. Daughter and patient verbalized understanding. Pharmacy also provided medication education. Patient discharged via wheelchair with aide assist. Addendum entered by Saida Batres R.N. 02/24/21 11:20: IV removed for discharge. Patient tolerated. Original Note: Patient a/o x 3. Ambulating independtly in room. Remains 93-94% on RA. VSS. Continuous pulse ox remains on. Endorses pain in abdomen, BS active x4, steri strips are CDI, quarter sized shadow drainage noted on drain dsg. Patient tolerating diet. BM this AM. Call light in reach. Daughter currently bedside.
--- NOTE | 2021-03-10 18:17 | PM.DS.1 ---
History of Present Illness History of Present Illness Date Patient Seen: 02/24/21 Chief complaint: STOMACH PAIN Narrative: Patient is a woman who developed abdominal pain was found to have an abscess on CT scan related to diverticulitis. She was admitted for treatment. Discharge Providers Provider Date of admission: 02/21/21 02:36 Discharge Date: 02/24/21 Primary care physician: MAR Harrison Consults: 02/21/21 15:55 Consult to Respiratory Therapy Evaluate & Treat Comment: Physician Instructions: Evaluate and treat 02/23/21 09:43 Consult to Physical Therapy Evaluate & Treat Comment: Physician Instructions: Evaluate and Treat 02/23/21 20:25 Consult to Respiratory Therapy Evaluate & Treat Comment: Physician Instructions: Evaluate and treat Discharge provider: Justus Gibbons MD Summary Hospital Course Discharge Diagnosis: Diverticulitis with abscess. Type 2 diabetes chronic Hypertension chronic Hospital Course: Patient underwent laparoscopic drainage of this abscess. A drain was placed. She was given IV antibiotics and rapidly improved. She was ultimately discharged on oral Cipro and metronidazole to follow-up in the office with Dr. Betts. Status at Discharge Cognitive/behavioral status at discharge: oriented Functional status at discharge: independent ambulation Overall status at discharge: patient is progressing back to baseline Exam Vital Signs (past 8 hours): Oxygen Delivery Method Room Air Oxygen Flow Rate 0 Narrative Exam Narrative: Lungs clear. Abdomen is soft. Drain has been removed. Objective Labs Result Diagrams: 02/24/21 05:39 02/24/21 05:39 [facility] Medical History Abnormal thyroid blood test Bradycardia Hyperlipidemia Screening for malignant neoplasm of colon Surgical History Anesthesia History of endometriosis (~2004) Status post delivery (~1981) Family History Father Asthma Grandmother Tuberculosis Social History household members: family and children Smoking Status: Current every day smoker Tobacco: How many years used: 40 second hand exposure: Yes alcohol intake: current Discharge Plan Discharge Plan Patient Disposition: Home Provider Discharge Comment: -Okay to shower -Do not submerge wounds in water until seen in follow-up. -No lifting >20 lbs x 4 weeks. -Walking only for exercise for 4 weeks. -No driving while taking narcotics. Discharge orders & Medications Prescriptions: New oxycodone 5 mg tablet 5 mg PO Q8H PRN (Reason: pain) Qty: 30 RF: 0 ciprofloxacin HCl [Cipro] 500 mg tablet 500 mg PO BID Qty: 20 RF: 0 metronidazole [Flagyl] 500 mg tablet 500 mg PO TID Qty: 30 RF: 0 Continued B Complex Plus Vitamin C [id number] mg capsule 1 cap PO DAILY RF: 0 Pancho-Mag 200 mg calcium- 100 mg tablet,chewable 200 tab PO DAILY RF: 0 (DME) Diabetic test strips Qty: 100 RF: 3 nifedipine 30 mg tablet extended release 24hr 30 mg PO DAILY Qty: 30 RF: 0 gabapentin 300 mg capsule 300 mg PO BEDTIME Qty: 30 RF: 0 ondansetron 4 mg tablet,disintegrating 4 mg PO TID-QID PRN (Reason: nausea and vomiting) Qty: 10 RF: 0 No Action metformin 500 mg tablet extended release 24 hr 500 mg PO QPM Qty: 30 RF: 0 losartan 50 mg tablet 50 mg PO DAILY Qty: 30 RF: 0 Follow up/Referrals: Scott Betts MD [Physician] - 03/13/21 2:15 pm (appt:03/13 @ 2:[address] betts please arrive 15 minutes prior to scheduled appointment time ) Diet/Activity/Treatments Diet: Regular Skin/Wound/Dressing Care Report to your healthcare provider any signs of infection, such as:: chills, fever, increased pain, unusual drainage and unusual redness Visit Report/Discharge Packet Instructions: [facility] for Laparoscopy, [facility]: Wound Care Discharge Data Primary Care Provider: Hunter Ashraf
== END 2021-02-24 12:30 | disposition home or self-care (01) | DRG 358 ==
LOC: ED 02-21 02:37 → AC 02-21 02:38
PROVIDERS: Admitting Provider Surgery; Emergency Provider Emergency Medicine; PCP Registered Nurse Diabetes Educator; Referring Provider Emergency Medicine; Visit Provider Surgery
PROC: 0W9G4ZZ Drainage of Peritoneal Cavity, Percutaneous Endoscopic Approach (ICD-10-PCS; CPT 49320; principal; 2021-02-21 12:45)
DX: K57.20 Diverticulitis of large intestine with perforation and abscess without bleeding (principal); E11.9 Type 2 diabetes mellitus without complications; F17.210 Nicotine dependence, cigarettes, uncomplicated; Z79.84 Long term (current) use of oral hypoglycemic drugs; Z20.822 Contact with and (suspected) exposure to COVID-19; Z86.79 Personal history of other diseases of the circulatory system
CPT/HCPCS: 36415; 36592; 49322; 74177; 80048; 80053; 81001; 82962; 83690; 85025; 87070; 87075; 87076; 87077; 87186; 87205; 87635; 93005; 93010; 94762; 96365; 96375; 97116; 97161; 97530; 99222; 99284; C9803; J0690; J1100; J1170; J1650; J1815; J1885; J2250; J2270; J2405; J2543; J2704; J3010; Q9967

== ENCOUNTER → 2021-03-13 13:45 | Outpatient (CLI) | payer MEDICARE, OTHER, SELFPAY ==
[2021-02-24 11:59] VITALS: BMI 24.8
[2021-03-13 14:34] LABS: Add Manual Diff / Slide Review NO; Basophils Absolute Auto 100 /uL (0-100); Basophils Percent Auto 1.2 % (0-2); Eosinophils Absolute Auto 200 /uL (0-450); Eosinophils Percent Auto 1.7 % (2-4); Hematocrit 37.8 % (36-46); Hemoglobin 12.3 g/dL (12.0-16.0); Lymphocytes Absolute Auto 2100 /uL (1100-4500); Lymphocytes Percent Auto 19.7 % (25-40); Mean Corpuscular HGB Conc 32.6 % (30-36); Mean Corpuscular Hemoglobin 28.7 PG (26-34); Mean Corpuscular Volume 88.1 fL (80-100); Monocytes Absolute Auto 400 /uL (0-900); Monocytes Percent Auto 3.5 % (3-14); Neutrophils Absolute Auto 8000 /uL (1500-7000); Neutrophils Percent Auto 73.9 % (50-75); Platelet Count 417 X10^3/uL (150-400); Red Blood Cell Count 4.29 X10^6/uL (4.0-5.2); Red Cell Distribution Width 14.6 % (11.6-14.8); White Blood Cell Count 10.8 X10^3/uL (4.5-11.0)
[2021-03-13 14:45] LABS: Hemoglobin A1C% w Est Avg Glu 6.9 % (4.0-6.0)
[2021-03-13 15:25] LABS: Alanine Aminotransferase 15 IU/L (<35); Albumin 3.9 g/dL (3.5-5.0); Albumin Globulin Ratio 1.1 (1.0-2.8); Alkaline Phosphatase 96 U/L (38-126); Aspartate Aminotransferase 24 IU/L (14-36); BUN Creatinine Ratio 23.3 (6-22); Bilirubin Total 0.4 mg/dL (0.2-1.3); Blood Urea Nitrogen 14 mg/dL (7-17); Calcium 9.4 mg/dL (8.4-10.2); Carbon Dioxide 30 mmol/L (22-32); Chloride 104 mmol/L (98-107); Estimated Glomerular Filt Rate > 60.0 mL/min (>60); Globulin 3.4 g/dL (1.7-4.1); Glucose 95 mg/dL (80-110); HEMOLYSIS < 15 (0-50); Potassium 4.3 mmol/L (3.4-5.1); Sodium 142 mmol/L (137-145); Total Protein 7.3 g/dL (6.3-8.2)
[2021-03-13 15:30] LABS: Creatinine Urine Random 83.4 mg/dL; Microalbumi Creatinin Ratio Ur 28.7 ug/mg CR (<30); Microalbumin Urine Random 2.4 mg/dL (0-1.6)
[2021-03-13 15:59] LABS: TSH w/ Reflex to FT4 0.51 uIU/mL (0.47-4.68)
== END ==
PROVIDERS: PCP Registered Nurse Diabetes Educator; Referring Provider Surgery; Visit Provider Surgery
DX: K57.20 Diverticulitis of large intestine with perforation and abscess without bleeding (principal); E11.9 Type 2 diabetes mellitus without complications; E78.5 Hyperlipidemia, unspecified; I10 Essential (primary) hypertension; R79.89 Other specified abnormal findings of blood chemistry
CPT/HCPCS: 36415; 80053; 82043; 82570; 83036; 84443; 85025

== ENCOUNTER → 2021-03-16 09:26 | Outpatient (CLI) | payer MEDICARE, OTHER, SELFPAY ==
[2021-02-24 11:59] VITALS: BMI 24.8
[2021-03-16 10:24] LABS: Cholesterol 211 mg/dL (140-199); HDL Cholesterol 58 mg/dL (40-60); LDL Cholesterol Calculated 121 mg/dL (<100); Triglycerides 159 mg/dL (35-150)
== END ==
PROVIDERS: PCP Registered Nurse Diabetes Educator; Referring Provider Registered Nurse Diabetes Educator; Visit Provider Registered Nurse Diabetes Educator
DX: E11.9 Type 2 diabetes mellitus without complications (principal); E78.5 Hyperlipidemia, unspecified; I10 Essential (primary) hypertension; R79.89 Other specified abnormal findings of blood chemistry
CPT/HCPCS: 36415; 80061

== ENCOUNTER → 2021-03-20 09:57 | Outpatient (CLI) | payer MEDICARE, OTHER, SELFPAY ==
[2021-02-24 11:59] VITALS: BMI 24.8
--- NOTE | 2021-03-20 10:49 | DI.CT.S_ITS ---
PROCEDURE: CT ABDOMEN PELVIS W CON INDICATIONS: follow up diverticular abscess TECHNIQUE: After the administration of oral and intravenous contrast, axial sections were acquired from the lung bases to the pubic symphysis. Coronal and sagittal reformats were performed. For radiation dose reduction, the following was used: automated exposure control, adjustment of mA and/or kV according to patient size. COMPARISON:[facility], CT, CT ABDOMEN PELVIS W CON, 02/21/2021, 1:23. FINDINGS: Lower thorax: The lung bases are clear. Heart size normal. No hiatal hernia. Liver: The liver is diffusely decreased in attenuation without focal mass lesion. Biliary system: No calcified cholelithiasis or pericholecystic inflammation. No intra or extrahepatic bile duct dilatation. Pancreas: Unremarkable without mass or inflammation evident. Spleen: Normal in size and density. Adrenals: Normal morphology and density. Reproductive system: Unremarkable as visualized. Urinary system: Normal renal size and attenuation. No renal calculi, hydronephrosis, or solid mass present. Gastrointestinal system: There is persistent sigmoid wall thickening and chronic appearing inflammatory change. A new abscess between sigmoid colon and bladder is now present measuring 2.0 by 5.0 by 2.7 cm. There is associated mass effect on the left posterior bladder with bladder wall thickening. No evidence of bowel obstruction. Appendix: No findings to suggest acute appendicitis. Peritoneal spaces: No mesenteric or retroperitoneal adenopathy. No free air. No free fluid. Vasculature: The IVC, aorta and iliac vasculature are unremarkable. Musculoskeletal: Normal bone mineralization. Multilevel degenerative disc disease and arthropathy results grade 1 anterior spondylolisthesis at L4-5 with severe central stenosis. No acute fractures. Abdominal wall intact without evidence of ventral or inguinal hernias. IMPRESSION: 1. New 5 cm pericolonic abscess between the sigmoid and bladder. There is mass effect on the bladder associated with bladder wall thickening, consistent with secondary cystitis. 2. Persistent sigmoid wall thickening and diverticular disease. Colon cancer remains on the differential. 3. Hepatic fatty infiltration Approved by: Branden Walsh M.D. on 03/20/2021 at 10:23
== END ==
PROVIDERS: PCP Registered Nurse Diabetes Educator; Referring Provider Surgery; Visit Provider Surgery
DX: K57.20 Diverticulitis of large intestine with perforation and abscess without bleeding (principal); L02.818 Cutaneous abscess of other sites; K76.0 Fatty (change of) liver, not elsewhere classified
CPT/HCPCS: 74177

== ENCOUNTER → 2021-03-21 14:28 | Outpatient (CLI) | payer MEDICARE, OTHER, SELFPAY ==
[2021-02-24 11:59] VITALS: BMI 24.8
== END ==
PROVIDERS: PCP Registered Nurse Diabetes Educator; Visit Provider Registered Nurse Diabetes Educator
DX: R30.0 Dysuria (principal)
CPT/HCPCS: 87086

== ENCOUNTER 2021-03-28 09:33 | Inpatient (IN) | payer MEDICARE, OTHER, SELFPAY ==
[2021-03-22 16:27] VITALS: BMI 24.8
--- NOTE | 2021-03-23 11:16 | DIET.PN ---
Dietary Progress Note RD Note: Met c pt and daughter for presurgical ERAS consultation, gave booklet and drink-pt will drink pre-surgical drink 4h prior to check in per DM, answered all questions. Pt reports weight loss recently secondary to trouble eating. Pt was on clear liquid diet for a while and avoids all nuts/seeds. Pt currently eating general DM diet high in soft meats, eggs, fish, rice, vegetables. Provided two ONS Jet packets for her to consume as DM friendly ONS while on clears, one Saturday and one Saturday. will f/u when pt post-surgical.
[2021-03-27 11:28] VITALS: BMI 21.6
[2021-03-28] VITALS (17 sets, daily range): BP systolic 97–155; BP diastolic 62–84; PULSE 57–80; RESP 14–20; TEMP 36.2–37.4; O2SAT 95–100; BMI 21.4
--- NOTE | 2021-03-28 | PATH_ITS ---
[facility] Accession Number: [id number] . 01 Material submitted: . PART A: sigmoid colon - SIGMOID COLON PART B: small bowel - SMALL BOWEL . 02 Diagnosis: A. Sigmoid Colon, Resection (9.5 cm in Length and a Separate Segment 7.0 cm in Length): Two colon segments with diverticulosis and diverticulitis, serositis, and serosal adhesions. Five benign pericolonic lymph nodes (0/5). Resection margins of both segments have no significant histomorphologic abnormality. Hyperplastic polyp (10 mm) present 3.0 cm from the nearest resection margin of the longer segment. . B. Small Bowel, Resection (5.5 cm in Length): Segment of small bowel with features of perforation, abscess, serositis, and extensive fibrinous adhesions. MRV 03/31/2021 1513 Local . 02 Comment: As part of routine software quality automation engineer, parts of this case were also reviewed by Dr. Singleton, who agrees with the interpretation. . 02 Electronically signed: . Shakila Gomes MD, Pathologist NPI- [id number] . 01 Gross description: . A. Received in formalin, labeled sigmoid colon consists of a 9.5 cm in length by 5.0 cm in diameter portion of colon with two stapled margins. The specimen has been previously disrupted and partially opened. The serosa is dykes-pink with fibrinous adhesions and a moderate amount of attached mesenteric adipose tissue. The specimen is opened to reveal a dykes-pink mucosa with normal mucosal folds. There is a 1.0 x 1.0 x 0.4 cm dykes-pink polyp identified located 3.0 cm from the nearest margin. Sectioning reveals multiple intact diverticula throughout the specimen. The wall thickness measures 0.1-0.6 cm. Also received in an additional portion of bowel measuring 7.0 cm in length by 3.0 cm in diameter with two stapled margins. The serosa is dykes-pink, focally hemorrhagic with fibrinous adhesions and cautery artifact. Opening reveals a dykes-pink mucosa with normal mucosal folds and multiple diverticula with focal areas of fat necrosis. The attached adipose tissue reveals candidate lymph nodes ranging from 0.2-0.5 cm. Sugar Chipper Machine Operator sections are submitted. . A1-A2: Margins, agency sales representative perpendicular sections from larger colon fragment (blue and black). A3-A4: Polyp, bisected and entirely submitted. A5-A6: Sugar Chipper Machine Operator diverticula from larger fragment. A7: Sugar Chipper Machine Operator perpendicular sections of stapled margins from smaller fragment (blue and black). A8-A9: Sugar Chipper Machine Operator smaller fragment of bowel. A10: Candidate lymph nodes. A11-A15: Additional agency sales representative diverticula. . B. Received in formalin, labeled small bowel consists of a 5.5 cm in length by 3.0 cm in diameter portion of small intestine with two stapled margins. The serosa is dykes-pink and dull with focal areas of adherent purulent exudate. There is a 1.0 x 1.0 cm perforation site (inked blue), located 2 cm from the nearest stapled margin. A dykes-pink mucosa with normal mucosal folds. The wall thickness measures 0.2 cm. Sugar Chipper Machine Operator sections are submitted. . B1: Sugar Chipper Machine Operator stapled margins, perpendicular sections (blue and black). B2: Sugar Chipper Machine Operator perforation site. (EA:[id number]) B3: Sugar Chipper Machine Operator area of perforation. B4: Additional agency sales representative area of perforation. (EA:[id number]) /MRV 03/31/2021 [facility]3 Local . 02 Microscopic: . An immunohistochemistry study is performed to evaluate the cells of interest. The control stains show appropriate reactivity. . RESULTS: Block A4: DOG1: Negative. Melan-A: Negative. EMILEE: Negative. . The small 2 mm lesion in the muscular propria of the sigmoid colon is immunonegative for DOG1, Melan-A and EMILEE. These findings most favor benign neural tissue (possible benign Janelle's plexus). . * This test was developed and its performance characteristics determined by [facility]. It has not been cleared or approved by the U.S. Food and Drug Administration. The FDA has determined that such clearance or approval is not necessary. This test is used for clinical purposes. It should not be regarded as investigational or for research . 02 Pathologist provided ICD-10: K63.0 . 02 CPT . 673886, 697898, R25634, U42263 Performed at: 01 [facility] [address] [id number] MD Brian Conner MD Phone: [phone] Performed at: 02 [place] [id number] [place] [id number] MD Haley Singleton MD Phone: [phone]
[2021-03-28 10:27] LABS: COVID19 -Nasal RAPID Negative (Negative)
[2021-03-28] MEDS: LACTATED RINGERS 1,000 ML 100 ML IV ×3 (10:34→18:16)
[2021-03-28] MEDS: GABAPENTIN 600 MG TABLET PO (10:42)
[2021-03-28] MEDS: OXYCODONE IR 5 MG TABLET PO (10:42)
--- NOTE | 2021-03-28 10:47 | PM.CN ---
History of Present Illness Consult details Date Patient Seen: 03/28/21 Time Patient Seen: 10:47 Chief complaint: LAP-ASSISTED SIG COL W/CYSTO Reason for consult: Ureteral stent placement Requesting provider: Scott Mohr Narrative: I have been asked to see this 70-year-old female for whom bilateral ureteral stent placement the sigmoid colectomy. This is being done for diverticular disease. The request is for placement of lighted stents which will be done. The procedure, risks, alternatives were discussed with the patient and her questions were answered. The risks to include but not limited to inability to place the stents, hematuria, dysuria, bladder perforation. Meds Home Medications and Allergies Home Medications Medication Instructions Recorded Confirmed Type levofloxacin 500 mg tablet 500 mg PO DAILY #7 tab 03/20/21 03/27/21 Rx oxycodone 5 mg tablet 5 mg PO Q6H PRN #30 tab 03/20/21 03/27/21 Rx gabapentin 300 mg capsule 300 mg PO BEDTIME #90 cap 03/21/21 03/27/21 Rx losartan 50 mg tablet 50 mg PO DAILY #90 tab 03/21/21 03/27/21 Rx nifedipine 30 mg tablet,extended 30 mg PO DAILY #90 tab 03/21/21 03/27/21 Rx release 24 hr metronidazole 500 mg tablet 500 mg PO TID #3 tab 03/24/21 03/27/21 Rx (Flagyl) Allergies Allergy/AdvReac Type Severity Reaction Status Date / Time sulfamethoxazole Allergy Mild Hives Verified 03/28/21 10:03 [From ] trimethoprim [From ] Allergy Mild Hives Verified 03/28/21 10:03 Exam Narrative Exam Narrative: Exam: General: Awake, alert, oriented, female resting on gurney in no apparent distress. Lungs: Clear full and equal Cardiovascular exam: Regular rate and rhythm without murmur Abdomen: Soft minimally tender in the left lower quadrant. Neurologic exam: Grossly intact Extremities: Without discernible abnormality. Objective Labs Labs: Laboratory Results - last 24 hr 03/28/21 09:52 SARS-CoV-2 (PCR) Negative Assessment & Plan Assessment & Plan narrative: Assessment and plan: Diverticular disease requiring laparoscopic sigmoidectomy. Plan for placement of bilateral ureteral stents to be removed by Dr. Mohr at the end the case. Informed consent obtained patient wished to proceed. COVID-19 COVID-19 status: Negative Result date/Date tested (Pos, Neg/Pending): 03/28/21 Time Spent With Patient Time with patient: less than 15 minutes
--- NOTE | 2021-03-28 10:50 | PM.PREOP ---
Pre-operative Note Interval Note History & Physical reviewed/Exam performed by Physician: Yes Changes to H&P: No
--- NOTE | 2021-03-28 10:52 | PM.PREOP ---
Pre-operative Note COVID-19 COVID-19 status: Negative Result date/Date tested (Pos, Neg/Pending): 03/28/21 Interval Note History & Physical reviewed/Exam performed by Physician: Yes Changes to H&P: No
[2021-03-28] MEDS: PIPERACILLIN/TAZO 3.375 GM in SODIUM CHLORIDE 0.9% 100 ML 25 ML IV ×3 (11:43→16:09)
[2021-03-28] MEDS: MINERAL OIL LIGHT TOPICAL 10 ML TOP (12:10)
--- NOTE | 2021-03-28 12:36 | PM.OP.1 ---
Procedure & Clinicians Procedure: Cystoscopy with bilateral ureteral lighted stent placement Same procedure as scheduled: Yes Indications: This is a 70-year-old female who is admitted to the hospital to undergo laparoscopic sigmoid colon resection for diverticular disease. Dr. Mohr is requested placement of lighted ureteral stents to facilitate this procedure. Surgeon: Heraclio Ahumada Click Yes if Unassisted: Yes Anesthesia Type: General Operative Notes Findings: Patient with cystocele and rectocele. Urethral meatus is somewhat narrowed and required dilation to admit the cystoscope. Urethra is normal along its length. Bladder for show some descensus. Ureteral orifices in approximately normal position with clear efflux. On the left there is bullous edema mild erythema no evidence of fistula. The remainder of the bladder mucosa is normal. The lighted ureteral stents were confirmed to be in place by fluoroscopy a 16 Serbian 5 cc Carreno catheter was put in place with 10 cc in the balloon and placed to gravity drainage. The left ureteral stent was noted by 3 black bullock had its terminus. Closure Type: not applicable Specimen(s): none sent Prosthetic devices, grafts, tissues, transplants, or devices: Luther lighted ureteral stents left in place bilaterally. Sixteen Serbian 5 cc Carreno catheter. Applied: catheter Estimated Blood Loss (mL): 0 Blood products transfused: none Procedure in detail: After informed consent was obtained the patient was identified and brought to the operating room. Placed was then placed in a supine position on the operating room table and anesthesia was induced. Patient was then placed in lithotomy position, prepped with a sterilizing prepped and draped in a sterile fashion for transurethral procedure. After prepping draping ensuring an adequate level of anesthesia attempt was made to pass the cystoscope. It was apparent that the urethral meatus was too small and thus it was dilated to 30 Serbian sequentially. Cystoscope was inserted and cystoscopy was performed. Hyper tied wire was then passed up and into the left collecting system under fluoroscopic visualization. The the left ureteral stent indicated by 3 black bullock was then passed over the wire left in position in the collecting system. Through the 2nd bridge the hybrid wire was passed up and into the right collecting system. This was identified to be in appropriate position by fluoroscopy. With the wire in correct position the stent was passed over the wire and positioned in the collecting system and was confirmed to be in place via fluoroscopy. The scope was then taken apart and backed out the stents were left in place. The light fibers then were passed up and put in position sequentially left side 1st then right side. Carreno catheter was then put in place balloon filled with 10 cc of sterile water placed to gravity drainage. The stents were then ?Tegadermed tothe Carreno. The drapes were taken down and a 2nd Tegaderm was used to secure the stents and light fibers to the Carreno. The patient then went on to procedure per Dr. Mohr which will be dictated under separate cover. For my procedure there were no complications and the patient tolerated the procedure well Dr. Mohr will remove the stents at the end of his case. Complications: none Post-operative Condition: stable Disposition: other (Disposition per Dr. Mohr)
--- NOTE | 2021-03-28 12:56 | SUR.OPER ---
Lithotomy on padded OR bed. [place] Pad Positioner under torso. Head on pillow, arms padded and tucked at sides. Legs secured in padded yellow fins stirrups.
[2021-03-28] MEDS: BUPIVACAINE 0.5% (PF) VIAL 30 ML INJ (13:54)
[2021-03-28] MEDS: ACETAMINOPHEN IV 1,000 MG/100 ML VIAL 400 MG IV (15:57)
--- NOTE | 2021-03-28 16:48 | SUR.OPER ---
Lighted ureteral stents placed by Dr. Ahumada and removed at end of case by Dr. Mohr
[2021-03-28] MEDS: INSULIN REGULAR 100 UNIT/ML 3 ML VIAL SUBCUT (17:03)
--- NOTE | 2021-03-28 18:26 | SUR.PHASEI ---
Late entry: Pt arrived to PACU with self maintained patent airway, 02 nasal cannula initiated then weaned off. Pt very sedated, then responsive to simple commands for example, are uyou having pain and to move her legs and squeeze my hands. ZO Sawyer to bedside to check on pt along with Dr. Mohr. Pt transported up to room 224 and left with ZO Spear. Bed low, locked and SCD's on.
--- NOTE | 2021-03-28 18:43 | PM.OP.1 ---
Operative Date/Time/Diagnoses Date of procedure: 03/28/21 Time of procedure: 18:43 Pre-op diagnosis: diverticulitis Post-op diagnosis: same Procedure & Clinicians Procedure: Laparoscopic assisted sigmoid colectomy, small-bowel resection, lysis of adhesions, drainage of intra abdominal abscess Same procedure as scheduled: Yes Indications: 70-year-old woman 2 episodes of complicated diverticular disease with abscess. First abscess was drained laparoscopically 2nd abscess not amenable to percutaneous drainage and failing antibiotic therapy. Surgeon: Scott Mohr Truck Driver Supervisor: Justsu Gibbons Anesthesia Type: General Operative Notes Findings: Abscess cavity. Negative leak test. Dense intra abdominal adhesions. Specimen(s): other (Sigmoid colon, small-bowel) Estimated Blood Loss (mL): 100 Procedure in detail: The patient was brought to the operating room and placed supine on the table. Bilateral lower extremity compression devices were applied. General anesthesia was induced and they were intubated with an endotracheal tube. They were placed in the lithotomy position and prepped and draped in sterile fashion. A kirk catheter was placed under sterile condition. They received 3.375 g of Zosyn prior to skin incision. Assist cystoscopy with bilateral ureteral stent placement was performed by Dr. Ahumada. Time-out was performed. An infraumbilical 1 cm incision was made, the umbilical stalk was elevated, the fascia was sharply incised and the abdomen was entered atraumatically. Pneumoperitoneum was established. The laparoscope was inserted into the abdomen, inspection was made there was no evidence of injury upon entry. 5 mm ports were placed suprapubic, left lower quadrant and right lower quadrant. There were significant adhesions between the the sigmoid colon and the left pelvic sidewall which were taken down with electrocautery. The sigmoid and descending colon were then mobilized laterally by incising the white line of Toldt to the level of the spleen. Attention was then turned to the pelvis. The sigmoid colon was densely adherent to the left iliac vascular structures and because of this I converted to an open operation as I did not think that the colon could be safely from the vasculature laparoscopically. A midline incision was made the abdomen was entered. The sigmoid colon was then carefully mobilized off of the left iliac vessels and sidewall using sharp dissection. The left ureter was not visible but it was palpable with the stent and it was swept posterior out of harm's way. This was a very tedious dissection, there was an abscess that remained between the sigmoid colon and the left abdominal lateral wall that was entered cultures were taken labeled abdominal abscess. The cavity was debrided and entirely drained. The proximal point of colonic division was chosen and the junction between the descending colon and sigmoid colon where the tissue was soft and pliable. The mesentery at this point was skeletonized to the level of bowel wall. The colon was divided with the MARY stapler with a blue staple load. A using the divided colon as a handle the remaining attachments to the sigmoid colon or taken down with sharp dissection. There were several loops of small bowel that were adhesed to the sigmoid colon that were carefully freed. The uterus was also inherent and was dissected off. The small bowel was run in its entirety from ligament Treitz to the terminal ileum. In the mid small bowel there was a a knuckle which had been tightly adhesed to the sigmoid colon was quite fibrotic and stenotic. This was resected using 2 fires of the MARY stapler and then was fashioned into a jqls-ni-unie anastomosis using a 3rd staple load. The common channel was then closed with running PDS suture followed by imbricating silk. A silk suture was placed at the crotch of the anastomosis. The anastomosis was inspected beforeit was closed was widely patent and hemostatic. The anastomosis was tension-free well-perfused and content moved easily across that there was no evidence of leak. There was 1 other spot on the small-bowel that had a serosal tear not full-thickness and this was imbricated with suture. Finally the remainder of the sigmoid colon was mobilized out of the pelvis with care again taken to protect the ureter out of harm's way. The mesentery to the sigmoid colon was divided with the LigaSure and then reinforced with silk ties on the stay side. The distal point of transection was the rectosigmoid junction where the bowel was soft and pliable. The distal transection was made with MARY stapler with a blue staple load. The specimen was passed off the field labeled sigmoid colon. A bowel clamp was placed carefully over the proximal colon and the staple line was excised. A 3-0 Prolene suture was pursestrung and a 25 mm EEA anvil was placed. The EEA stapler was advanced into the rectum and its point was deployed. The first time the point was deployed it was not seen to mitchell the rectal wall. The stapler point was then deployed a second time under direct visualization through the anterior surface of the rectum. Ensuring that the colon mesentery was without twist, the anvil and stapler were mated and the anastomosis was completed without tension. The stapler was removed and inspection of the anastomotic donuts demonstrated two complete doughnuts. The proximal bowel was occluded, the pelvis filled with saline and insufflation of the rectum demonstrated no leak. Colonoscope demonstrate what looked like with a 1 mm inflamed diverticulum or a partial thickness laceration in the rectal wall below the anastamosis however there was no leak and no distension of the peritoneum below the reflection. Despite the lack of leak I imbricated this spot with silk suture for security. Rechecked the leak test again negative. The abdomen was copiously irrigated and hemostasis checked. The midline fascia was closed with #1 PDS running fashion. The subcutaneous tissues were reapproximated using 3 0 Vicryl, skin closed with jacky. The sponge instrument count at the end of the operation was correct. The patient emerged from general anesthesia, extubated and transferred to the postoperative care unit in stable condition. Complications: none Post-operative Condition: stable Disposition: Acute Care
--- NOTE | 2021-03-28 21:28 | PC.NURSE ---
pt's BG 260. no new order. cont to monitor. pt reports her provider told her to stop taking metformin.
[2021-03-28] MEDS: GABAPENTIN 300 MG CAPSULE PO (21:35)
[2021-03-29] VITALS (11 sets, daily range): BP systolic 116–135; BP diastolic 62–80; PULSE 55–69; RESP 15–20; TEMP 36.1–36.6; O2SAT 96–99
[2021-03-29] MEDS: PIPERACILLIN/TAZO 3.375 GM in SODIUM CHLORIDE 0.9% 100 ML 25 ML IV ×2 (00:40→15:36)
[2021-03-29] MEDS: ACETAMINOPHEN 325 MG TABLET 650 MG PO ×3 (00:41→18:05)
[2021-03-29] MEDS: LACTATED RINGERS 1,000 ML 100 ML IV (04:26)
[2021-03-29] MEDS: OXYCODONE IR 5 MG TABLET PO ×4 (04:29→18:05)
[2021-03-29 05:00] LABS: Add Manual Diff / Slide Review NO; Basophils Absolute Auto 0 /uL (0-100); Basophils Percent Auto 0.3 % (0-2); Eosinophils Absolute Auto 0 /uL (0-450); Hematocrit 36.4 % (36-46); Hemoglobin 11.6 g/dL (12.0-16.0); Lymphocytes Absolute Auto 1300 /uL (1100-4500); Lymphocytes Percent Auto 9.3 % (25-40); Mean Corpuscular HGB Conc 31.9 % (30-36); Mean Corpuscular Volume 87.9 fL (80-100); Monocytes Absolute Auto 800 /uL (0-900); Monocytes Percent Auto 5.9 % (3-14); Neutrophils Absolute Auto 11700 /uL (1500-7000); Neutrophils Percent Auto 84.5 % (50-75); Platelet Count 309 X10^3/uL (150-400); Red Blood Cell Count 4.14 X10^6/uL (4.0-5.2); Red Cell Distribution Width 14.7 % (11.6-14.8); White Blood Cell Count 13.9 X10^3/uL (4.5-11.0)
[2021-03-29 05:08] LABS: BUN Creatinine Ratio 15.2 (6-22); Blood Urea Nitrogen 10 mg/dL (7-17); Calcium 8.3 mg/dL (8.4-10.2); Carbon Dioxide 27 mmol/L (22-32); Chloride 106 mmol/L (98-107); Estimated Glomerular Filt Rate > 60.0 mL/min (>60); Glucose 132 mg/dL (80-110); HEMOLYSIS < 15 (0-50); Potassium 4.3 mmol/L (3.4-5.1); Sodium 136 mmol/L (137-145)
[2021-03-29] MEDS: HYDROMORPHONE 0.5 MG INJ IV ×3 (07:44→20:41)
[2021-03-29] MEDS: PIPERACILLIN/TAZO 3.375 GM in SODIUM CHLORIDE 0.9% 100 ML IV (07:48)
[2021-03-29] MEDS: ENOXAPARIN 40 MG/0.4 ML SYRINGE SUBCUT (09:08)
[2021-03-29] MEDS: LOSARTAN 50 MG TABLET PO (09:08)
[2021-03-29] MEDS: NIFEdipine 30 MG TAB ER PO (09:31)
--- NOTE | 2021-03-29 10:57 | PC.NURSE ---
Addendum entered by Valencia Otto R.N. 03/29/21 15:52: Improved ambulation this afternoon, continues with weeping from drain insertion site. Reinforced. IV pain control and PO oxycodone per request. call light in reach. Original Note: Am shift Pt is A/o x4 reporting pain. Medicated per emar, Carreno removed per Dr Mohr's request @ 1000. Pt instructed to call with next void. Pt is ambulating up in room. Hypoactive BT and no flatus as of yet. No nausea. Clear liquid diet. Jack drain compressed and draining serosang. fluid. Drain is weepingto abd dressing, reinforced.
--- NOTE | 2021-03-29 11:48 | P.PN_ITS ---
Subjective Subjective Date Patient Seen: 03/29/21 Time Patient Seen: 11:53 Interval history: Laparoscopic assisted sigmoid colectomy yesterday for diverticulitis. No nausea vomiting or fever. No flatus or BM. Tolerated clear liquids. Not yet out of bed. Pain well controlled with current medication. Exam Vital Signs (past 8 hours): - 03/29/21 04:30 03/29/21 04:34 03/29/21 08:00 Temperature 97.5 F L 97.9 F Pulse Rate 69 55 L Respiratory Rate 16 20 Blood Pressure 134/65 119/74 Pulse Oximetry 97 97 98 03/29/21 09:09 Temperature Pulse Rate Respiratory Rate Blood Pressure Pulse Oximetry 98 Oxygen Delivery Method Room Air Oxygen Flow Rate 0 Narrative Exam Narrative: General adult female alert oriented no acute distress Abdomen soft nondistended appropriately tender to palpation. Drain serosanguineous. Objective Labs Result Diagrams: 03/29/21 04:21 03/29/21 04:21 Labs: Laboratory Results - last 24 hr 03/29/21 03/29/21 04:21 04:21 WBC 13.9 H RBC 4.14 Hgb 11.6 L Hct 36.4 MCV 87.9 MCH 28.0 MCHC 31.9 RDW 14.7 Plt Count 309 Neut % (Auto) 84.5 H Lymph % (Auto) 9.3 L [place] % (Auto) 5.9 Eos % (Auto) 0.0 L Baso % (Auto) 0.3 Neut # (Auto) 39402 H Lymph # (Auto) 1300 [place] # (Auto) 800 Eos # (Auto) 0 Baso # (Auto) 0 Sodium 136 L Potassium 4.3 Chloride 106 Carbon Dioxide 27 BUN 10 Creatinine 0.66 Estimated GFR > 60.0 BUN/Creatinine Ratio 15.2 Glucose 132 H Calcium 8.3 L PFSH Medical History Abnormal thyroid blood test Abscess of sigmoid colon due to diverticulitis Anxiety Bradycardia Depression Diabetes Diabetes type 2, controlled Diabetic neuropathy associated with diabetes mellitus due to underlying condition Dyslipidemia HTN (hypertension) Hyperlipidemia Neuropathy Screening for malignant neoplasm of colon Smoker Surgical History Anesthesia History of bilateral tubal ligation History of colonoscopy History of endometriosis (~2004) History of laparoscopy (02/2021) Status post delivery (~1981) Family History Father Asthma Grandmother Tuberculosis Social History household members: family and children Smoking Status: Former smoker Tobacco: How many years used: 40 second hand exposure: Yes alcohol intake: current Assessment & Plan Post-op Postoperative Procedures: Procedures Operation Date: 03/28/21 10:45 Actual Procedure Side Surgeon s Cystoscopy w/ Placement of Ureteral Stent Bilateral Heraclio Ahumada MD p with small bowelbowel resection Scott Mohr MD Postoperative status narrative: 70-year-old woman postoperative day 1 status post laparoscopic assisted sigmoid colectomy for complicated diverticulitis. She is overall doing well and recovering appropriately. Diet-clear liquid diet. Await return of bowel function prior to advancing Intra-abdominal abscess-drained yesterday during operation. Continue Zosyn follow-up cultures Discontinue IV fluids Remove Carreno catheter Out of bed ambulate. Physical therapy consult Diabetes continue insulin sliding scale SCDs and Lovenox for VTE prophylaxis May change dressings as needed
--- NOTE | 2021-03-29 13:04 | CM.DANOTE ---
Patient is a 70 yo female who was admitted on 03/28/21 for Lap Assisted Sig Col. Pt has [facility] and [employer] for insurance and her PCP is Hunter Ashraf. EMR was reviewed. Per Urologist, pt with diverticular disease and planned stent for Sigmoid Colectomy with Surgeon to assist and ended up being an open surgery. Per Bean Viner, worked with pt and her Dtr and granddtr on nutrition education post surgery prior to being admitted and pt has very supportive family. Pt currently on clears. SW met bedside with pt and explained role and she was quite sleepy and painful and confirmed that she still lives at home with her family and Dtr has taken time off work to be home at d/c to assist pt for a while. Pt denies any hx of SNF and was last admitted in February this year and was able to d/c home with family and no further needs. Plan: SW to follow closely for pt progress and any identified needs from extensive surgery to confirm safe plan of home with Dtr assist when stable. ZELALEM Ray Discharge Planning/Care Management CM Discharge Assessment Start: 03/29/21 12:59 Freq: Status: Active Protocol: Document 03/29/21 13:00 BF (Rec: 03/29/21 13:04 [id number]) Discharge Planning Assessment Assigned Raw Finish Mill Operator ZELALEM Flower DPOA/Assigned Designee Name Dtr Advance Directives? No Advance Directives on File No History Provided By Patient,Medical Record Has Patient been admitted in last 30 No days? Prior Living Arrangements House Household Members family,children Type of transporation used prior to Drives own vehicle admit Independent with ADL's Yes Is patient alert and oriented? Yes Caregiver for Another No Comment Pending how pt progresses with healing post surgery Barriers to Discharge No Discharge Plan Home Transportation Arrangement Daughter Nely will provide transportation Referrals Initiated None needed Additional Comment Pending pt's progress Review Status In Process Please Provide Date Initial DC 03/29/21 Assessment Was Performed Next Review Type Continued Stay Review Pre-Anesthesia Assessment Start: 03/27/21 11:28 Freq: Status: Complete Protocol: Document 03/27/21 11:28 CAB (Rec: 03/27/21 12:33 CAB [id number]) Pre-Anesthesia Assessment PAC Comment Slightly difficult to communicate with patient due to language barrier. Pt's granddaughter is helpful with medical questions, etc. Patient Information Reviewed Via Phone Assessment Assessment Completed With Patient Comment EMILIA RAPID on admit Primary Care Provider Hunter Ashraf Seen Specialist in Last 12 Months Yes Specialist Seen General surgeon Primary Language Kunal Preferred Language [place] Comment Does speak Ugandan Height 149.86 cm Weight 48.534 kg Body Mass Index (BMI) 21.6 Hearing Ability Normal Visual Assist Glasses Dentition Type Teeth, Natural Present,Teeth, Missing Barriers to Learning Language Hx Anesthesia Reactions No Hx Family Anesthesia Reaction No Hx Malignant Hyperthermia No Hx Blood Transfusions No Anesthesia Review Requested No Liquified Natural Gas Specialist No alcohol intake current alcohol intake frequency holidays/special occasions only Smoking Status Former smoker Tobacco type cigarettes how long ago did patient quit smoking March 01 Substance Use Type does not use Pain Present Pain Reported Comment Left lower abdomen Musculoskeletal Symptoms Difficulty Walking,Joint Pain History of Falling (Recent or History of No ) Patient is completely paralyzed or No completely immobile Prosthesis or Orthotic Device Front Wheel Walker Mental Status Oriented to own ability Is patient on oxygen? No Does patient have GEIGER/SOB No Hx Sleep Apnea No CPAP/BIPAP use not prescribed Currently Taking a Beta Raiza No Hx Chest Pain No Hx SOB No Hx Syncope or Dizziness No Anti-Coagulant Therapy No Has a Spa Assistant Manager No Cardiac Testing No Hx Pacemaker/ICD No Pacemaker Rep Required? No Cardiac Clearance Received Not Applicable Diet Type At Home Regular dysphagia No Gastrointestinal Symptoms Abdominal Pain Bladder Pattern Incontinent, Stress,Urgency Urinary Catheter Present No Hx Urinary Self Catheterization No Diabetes Yes: Pt does not check blood sugar at home HgbA1C 6.9 Date 03/13/21 Patient No Lactating No Hx Drug Resistant Organism No Presence of External or Internal Medical No Devices Have you had any close contact with No someone diagnosed with COVID-19? Marital Status / Lives With family,children Support System Child/Children Does the Patient Have Assistance After Yes: Granddaughter will assist Surgery w/car at DC Patient Discharge Plan Description Return Home Comment Pt advised 3-5 day length of stay per surgeon Feels Safe in Current Environment Yes Been Physically Hurt or Threatened By a No Person in Current Environment Do you have thoughts of harming yourself None or others? Are you currently considering suicide? No Do you have a plan to hurt yourself or No Plan others? Do You Have Any Spiritual Beliefs That No May Affect Your HC Choices? Do You Have Any Cultural Practices That No May Affect Your HC Choices? Comment Amish Who Can We Speak to About Patient's Care Family, friends Identifying Code for Release of Patient Declines to issue Information Health Care Proxy/Next of Kin Desiree (granddaughter) Nely ( daughter) Health Care Proxy Phone Number Desiree: [phone] Nely: Emergency Contact Name nely pathak Emergency Contact Advance Directives? No Power of Truck Terminal Manager No PAC Instructions Diabetes instructions,Durable medical equipment,Medications to take/avoid,Nasal antibiotic ,No ETOH/petroleum product on skin DOS,NPO,Post-op transportation,Pre-op antibiotic,Sturdy shoes/ comfortable clothes,Do not bring valuables and remove jewelry
--- NOTE | 2021-03-29 16:45 | PT.IIE ---
Current Diagnoses Abscess of intestine (03/28/21) Surgery Performed Operation Date: 03/28/21 10:45 Actual Procedures s Cystoscopy w/ Placement of Ureteral Stent(Bilateral) - Heraclio Ahumada MD p with small bowelbowel resection - Scott Mohr MD Surgical History (Last Reviewed 03/28/21 @ 10:49 by Heraclio Ahumada MD) Anesthesia History of endometriosis (~2004) Status post delivery (~1981) Medical History Abnormal thyroid blood test Abscess of sigmoid colon due to diverticulitis Anxiety Bradycardia Depression Diabetes Diabetes type 2, controlled Diabetic neuropathy associated with diabetes mellitus due to underlying condition Dyslipidemia HTN (hypertension) Hyperlipidemia Neuropathy Screening for malignant neoplasm of colon Smoker Physical Therapy Inpatient Evaluation/Re-Eval M1 PT/OT-IP Prior Functional Status Start: 03/29/21 17:45 Freq: NEEDED Status: Active Protocol: Document 03/29/21 16:45 AB (Rec: 03/29/21 17:54 AB [id number]) Medical Review Prior Functional Status Medical History Reviewed Yes Communication able to make needs known Mobility and Gait pt stated that she is modified independent with all mobilities and ambulation without AD but occasionally uses a FWW for long distance ambulation Social History Household Members family,children Living Arrangements House Number of Floors (Floors) One Floor Number of Stairs To Enter/Railing? 1 step to enter Home Environment Standard Height Toilet,Tub/ Shower Home Equipment Front Wheel Walker Additional Social History Comment stated that her grand daughter can assist her M2 PT-IP Current Condition Start: 03/29/21 17:45 Freq: NEEDED Status: Active Protocol: Document 03/29/21 16:45 AB (Rec: 03/29/21 17:54 AB [id number]) Physical Therapy Current Condition Current Condition Evaluation Date 03/29/21 Treatment Diagnosis s/p colectomy, ureteral stent placement; difficulty in walking Onset Date 03/28/21 Precautions Abdominal Surgery Precautions Log Roll,Lifting Restrictions, Gait Belt above Incisional Area M3 PT-IP Subjective Start: 03/29/21 17:45 Freq: NEEDED Status: Active Protocol: Document 03/29/21 16:45 AB (Rec: 03/29/21 17:54 AB [id number]) Subjective Physical Therapy Visit Type Type Initial Evaluation Visit Start Time 16:45 Visit Stop Time 17:15 Total Visit Minutes 30 Number of RECRUITMENT DIRECTOR Visits 0 Physical Therapy Visit Comments Patient Comments pt is agreeable to do PT Therapy Pain Assessment Pain When Pain Assessed At Rest Pain Present Pain Present Pain Reported Location abd Intensity 10 Scale Used Numeric (0 - 10) Pain Management Techniques Apply Cold,Distraction, Modification of Treatment,Re- positioning,Timing of Activity with Medications M4 PT-IP Mobility and Gait Start: 03/29/21 17:45 Freq: NEEDED Status: Active Protocol: Document 03/29/21 16:45 AB (Rec: 03/29/21 17:54 AB [id number]) PT-Bed Mobility Assessment Rolling Type of Rolling Log Rolling Level of Assist Standby Assistance Supine to Sit Supine to Sit Standby Assistance,Bedrails PT-Transfer Assessment Sit to and From Stand Sit to and from Stand Contact Guard Assistance,1 Person Assistance,2 Person Assistance Equipment Transfer Assistive Device Gait Belt,Front Wheeled Walker Orthotic/Prosthetic Devices or Brace: No Transfers Transfer Destination Toilet Transfer Technique ambulated using FWW Transfer Ability Level of Assist Contact Guard Assistance,Use of Upper Extremities Comments Mobility Comments reviewed abdominal precautions and log roll bed mobility with pt. pt completed supine to sit log roll SBA using bed rail. able to sit on EOB SBA. requested to use the toilet. completed sit to stand CGA and ambulated to the toilet using FWW CGA. able to complete toileting SBA and ambulated to the sink using FWW SBA to CGA. able to maintain standing SBA by the sink while completing handwashing. agreed to ambulate out in the hallway. completed ambulation using FWW ~ 250 ft SBA to CGA. agreed to sit up on chair. positioned on chair. call light and table placed within reach. Gait Assessment Gait Gait Assistance Required: Standby Assistance,Contact Guard Assist Distance (Feet) 250 Able to Maintain Weight Bearing Status Yes During Gait Assistive Devices Assistive Device Gait Belt,Front Wheeled Walker Orthotic/Prosthetic Devices or Brace: No Gait Deviations General Gait Pattern Decreased Stride Length, Decreased Feet Clearance Factors Limiting Gait Function Factors Limiting Gait Function Decreased Activity Tolerance, Decreased Strength,Limited Range of Motion,Pain Comments Gait Comments pls refer to mobility section for details PT-Balance Assessment Sitting Balance and Reactions Static Sitting Balance Ability Good Dynamic Sitting Balance Ability Good Standing Balance and Reactions Static Standing Balance Ability Good Dynamic Standing Balance Ability Fair Device Used FWW M5 PT-IP Objective Assessments Start: 03/29/21 17:45 Freq: NEEDED Status: Active Protocol: Document 03/29/21 16:45 AB (Rec: 03/29/21 17:54 AB [id number]) Orientation Orientation/Cognition Level of Alertness Alert Orientation Name,Place,Situation Language Function Ability No Deficits Noted Safety Awareness Decreased Safety Awareness Gross Range of Motion Lower Extremity ROM Assessment Within Functional Limits Strength Lower Extremity Strength Hip 4-/5 Knee 4-/5 Coordination Assessment Gross Coordination Gross Coordination WNL Sensation Assessment Sensation Gross Sensation WNL Muscle Tone Muscle Tone WNL Yes M6 PT-IP Treatment Start: 03/29/21 17:45 Freq: NEEDED Status: Active Protocol: Document 03/29/21 16:45 AB (Rec: 03/29/21 17:54 AB [id number]) Physical Therapy Treatment Education Education Provided Precautions,Safety M7 PT-IP Assessment and Plan Start: 03/29/21 17:45 Freq: NEEDED Status: Active Protocol: Document 03/29/21 16:45 AB (Rec: 03/29/21 17:54 AB [id number]) PT Summary Assessment and Plan Potential Rehabilitation Potential Good Status of Condition at Evaluation Stable Summary Impairments Pain,ROM,Strength,Balance,Bed Mobility,Transfers,Gait, Activity Tolerance Assessment Summary pt requiring SBA to CGA with ambulation using FWW. c/o increase pain with mobility affecting activity tolerance. pt plans to go home and family to assist her at home. Goals Bed Mobility Goal Independent Transfer Goal Independent,Front Wheeled Walker Gait Goal Independent,Front Wheel Walker Gait Distance 300 Other Goals ambulation without AD 200 ft mod I up/down 1 step using FWW I Days to Meet Goals 10 Frequency of Treatment Frequency Of Treatment Once a Day Treatment Plan Physical Therapy Treatment Plan Bed Mobility Training,Transfer Training,Gait Training, Therapeutic Exercise,Balance Retraining,Post Op Education, Discharge Planning,Hot or Cold Pack,Neuromuscular Re-ed, Coordination Retraining,Manual Therapy Precautions Abdominal Surgery Precautions Log Roll,Lifting Restrictions, Gait Belt above Incisional Area Recommendations To Nursing Amount of Assist Needed 1 Person Assist Discharge Recommendations PT Discharge Recommendations Home with Assistance Transportation Needs at Discharge Private Vehicle
[2021-03-29] MEDS: GABAPENTIN 300 MG CAPSULE PO (20:39)
--- NOTE | 2021-03-29 21:50 | PC.NURSE ---
Addendum entered by Piedad Szymanski R.N. 03/29/21 21:53: still not passing any gas. Original Note: 1600: pt sitting in recliner. reinforced dressing with 2-Tdrain and 1 abd pad. previous reinforced dressing was saturated. provider aware aleja drain is leaking. aleja drain w/serosang fluid.
[2021-03-30] VITALS (10 sets, daily range): BP systolic 110–146; BP diastolic 64–84; PULSE 63–71; RESP 14–18; TEMP 36.1–37.7; O2SAT 92–97
[2021-03-30] MEDS: ACETAMINOPHEN 325 MG TABLET 650 MG PO ×5 (00:37→23:36)
[2021-03-30] MEDS: PIPERACILLIN/TAZO 3.375 GM in SODIUM CHLORIDE 0.9% 100 ML 25 ML IV ×2 (00:37→08:41)
[2021-03-30 05:25] LABS: BUN Creatinine Ratio 11.7 (6-22); Blood Urea Nitrogen 7 mg/dL (7-17); Calcium 8.4 mg/dL (8.4-10.2); Carbon Dioxide 27 mmol/L (22-32); Chloride 106 mmol/L (98-107); Estimated Glomerular Filt Rate > 60.0 mL/min (>60); Glucose 108 mg/dL (80-110); HEMOLYSIS < 15 (0-50); Potassium 3.9 mmol/L (3.4-5.1); Sodium 138 mmol/L (137-145)
[2021-03-30 05:26] LABS: Add Manual Diff / Slide Review NO; Basophils Absolute Auto 100 /uL (0-100); Basophils Percent Auto 1.1 % (0-2); Eosinophils Absolute Auto 200 /uL (0-450); Eosinophils Percent Auto 2.2 % (2-4); Hematocrit 35.3 % (36-46); Hemoglobin 11.7 g/dL (12.0-16.0); Lymphocytes Absolute Auto 1500 /uL (1100-4500); Mean Corpuscular HGB Conc 33.1 % (30-36); Mean Corpuscular Volume 87.5 fL (80-100); Monocytes Absolute Auto 700 /uL (0-900); Neutrophils Absolute Auto 8300 /uL (1500-7000); Neutrophils Percent Auto 76.7 % (50-75); Platelet Count 324 X10^3/uL (150-400); Red Blood Cell Count 4.03 X10^6/uL (4.0-5.2); Red Cell Distribution Width 14.7 % (11.6-14.8); White Blood Cell Count 10.9 X10^3/uL (4.5-11.0)
[2021-03-30] MEDS: NIFEdipine 30 MG TAB ER PO (08:34)
[2021-03-30] MEDS: ENOXAPARIN 40 MG/0.4 ML SYRINGE SUBCUT (08:41)
--- NOTE | 2021-03-30 09:25 | PM.PNPO.1 ---
Subjective Subjective Date Patient Seen: 03/30/21 Time Patient Seen: 09:25 Interval history: No acute events. Tolerating clear liquids. No nausea no flatus no bowel movement. Ambulated. catheter removed yesterday voiding without issue. Exam Vital Signs (past 8 hours): - 03/30/21 04:00 03/30/21 04:43 03/30/21 08:00 Temperature 98.1 F 98.7 F Pulse Rate 68 65 Respiratory Rate 14 16 Blood Pressure 110/64 111/64 Pulse Oximetry 97 92 96 Oxygen Delivery Method Room Air Oxygen Flow Rate 0 Narrative Exam Narrative: General adult female alert oriented no acute distress Abdomen midline incision clean dry intact dressings removed jacky intact. Drain right lower quadrant serosanguineous removed Objective Labs Result Diagrams: 03/30/21 04:57 03/30/21 04:57 Labs: Laboratory Results - last 24 hr 03/30/21 03/30/21 04:57 04:57 WBC 10.9 RBC 4.03 Hgb 11.7 L Hct 35.3 L MCV 87.5 MCH 29.0 MCHC 33.1 RDW 14.7 Plt Count 324 Neut % (Auto) 76.7 H Lymph % (Auto) 14.0 L [place] % (Auto) 6.0 Eos % (Auto) 2.2 Baso % (Auto) 1.1 Neut # (Auto) 8300 H Lymph # (Auto) 1500 [place] # (Auto) 700 Eos # (Auto) 200 Baso # (Auto) 100 Sodium 138 Potassium 3.9 Chloride 106 Carbon Dioxide 27 BUN 7 Creatinine 0.60 Estimated GFR > 60.0 BUN/Creatinine Ratio 11.7 Glucose 108 Calcium 8.4 PFSH Medical History Abnormal thyroid blood test Abscess of sigmoid colon due to diverticulitis Anxiety Bradycardia Depression Diabetes Diabetes type 2, controlled Diabetic neuropathy associated with diabetes mellitus due to underlying condition Dyslipidemia HTN (hypertension) Hyperlipidemia Neuropathy Screening for malignant neoplasm of colon Smoker Surgical History Anesthesia History of bilateral tubal ligation History of colonoscopy History of endometriosis (~2004) History of laparoscopy (02/2021) Status post delivery (~1981) Family History Father Asthma Grandmother Tuberculosis Social History household members: family and children Smoking Status: Former smoker Tobacco: How many years used: 40 second hand exposure: Yes alcohol intake: current Assessment & Plan Post-op Postoperative Procedures: Procedures Operation Date: 03/28/21 10:45 Actual Procedure Side Surgeon s Cystoscopy w/ Placement of Ureteral Stent Bilateral Heraclio Ahumada MD p with small bowelbowel resection Scott Mohr MD Postoperative status narrative: 70-year-old female postoperative day 2 status post laparoscopic assisted sigmoid colectomy for complicated diverticulitis. She is doing well progressing appropriately. Diet-clear liquid diet. Advance once return of bowel function VT prophylaxis Lovenox and SCDs Drain removed May shower Out of bed ambulate physical therapy Culture from intra-abdominal abscess no organisms will discontinue Zosyn
[2021-03-30] MEDS: OXYCODONE IR 5 MG TABLET PO ×3 (10:03→20:31)
--- NOTE | 2021-03-30 10:36 | PC.NURSE ---
Addendum entered by Hortensia Corrigan R.N. 03/30/21 14:27: Patient ambulated in the halls with her daughter and tolerated well. She is resting back in bed and has been tolerating her clear liquid diet. Original Note: Assess- Patient just given 5mg of oxcodone for complaints of 5/10 pain to abdomen. Jack drain taken out by , she tolerated this well. IV antibiotics d/cd and also ivf. Patients daughter is in the room and just now going for a break. Dressings to lower abdomen are cdi, patient is resting comfortably now.
[2021-03-30] MEDS: LOSARTAN 50 MG TABLET PO (11:30)
--- NOTE | 2021-03-30 14:18 | PT-IP ANOTE ---
1418 Pt refused stating she was in pain, pt also stated she had been up walking, RN confirmed pt had been up walking all over the acute care floor with her daughter. Will check back with pt in AM.
[2021-03-30] MEDS: GABAPENTIN 300 MG CAPSULE PO (20:06)
[2021-03-30] MEDS: ONDANSETRON 4 MG/2 ML INJ IV (21:19)
[2021-03-30] MEDS: SODIUM CHLORIDE 0.9% FLUSH 10 ML IV (21:19)
--- NOTE | 2021-03-30 22:57 | PC.NURSE ---
pod 2, tolerating amb w/ FWW in room and on unit, has slow steady gait. pain controlled w/ oxy/apap. midline incision has 18 jacky, is clean, dry and approximated. no drainage noted. L ABD puncture site(previous drain) is draining serous fluid, covered w/ tegaderm. R ABD incision has 1 staple. ОЛЬГА. this HS c/o higher abd pain, trying to pass gas encouraged ambulation, zofran given x1w/ good result. daughter overnight in room.
[2021-03-31] VITALS (8 sets, daily range): BP systolic 123–150; BP diastolic 72–84; PULSE 60–75; RESP 14–18; TEMP 36.4–37; O2SAT 94–98
[2021-03-31] MEDS: OXYCODONE IR 5 MG TABLET PO ×5 (04:12→21:05)
[2021-03-31 05:41] LABS: Add Manual Diff / Slide Review NO; Basophils Absolute Auto 100 /uL (0-100); Basophils Percent Auto 1.2 % (0-2); Eosinophils Absolute Auto 300 /uL (0-450); Hematocrit 34.4 % (36-46); Hemoglobin 11.2 g/dL (12.0-16.0); Lymphocytes Absolute Auto 1600 /uL (1100-4500); Mean Corpuscular HGB Conc 32.7 % (30-36); Mean Corpuscular Hemoglobin 28.6 PG (26-34); Mean Corpuscular Volume 87.5 fL (80-100); Monocytes Absolute Auto 600 /uL (0-900); Monocytes Percent Auto 6.4 % (3-14); Neutrophils Absolute Auto 6100 /uL (1500-7000); Neutrophils Percent Auto 70.4 % (50-75); Platelet Count 333 X10^3/uL (150-400); Red Blood Cell Count 3.93 X10^6/uL (4.0-5.2); Red Cell Distribution Width 14.9 % (11.6-14.8); White Blood Cell Count 8.6 X10^3/uL (4.5-11.0)
[2021-03-31 06:01] LABS: BUN Creatinine Ratio 7.7 (6-22); Blood Urea Nitrogen 4 mg/dL (7-17); Calcium 8.3 mg/dL (8.4-10.2); Carbon Dioxide 25 mmol/L (22-32); Chloride 103 mmol/L (98-107); Estimated Glomerular Filt Rate > 60.0 mL/min (>60); Glucose 103 mg/dL (80-110); HEMOLYSIS < 15 (0-50); Potassium 3.6 mmol/L (3.4-5.1); Sodium 135 mmol/L (137-145)
[2021-03-31] MEDS: ACETAMINOPHEN 325 MG TABLET 650 MG PO ×3 (06:05→17:28)
[2021-03-31] MEDS: NIFEdipine 30 MG TAB ER PO (08:39)
[2021-03-31] MEDS: ENOXAPARIN 40 MG/0.4 ML SYRINGE SUBCUT (08:40)
[2021-03-31] MEDS: BISACODYL 10 MG SUPP PR (08:40)
--- NOTE | 2021-03-31 09:08 | PC.NURSE ---
Addendum entered by Hortensia Corrigan R.N. 03/31/21 10:32: Patient had a small loose bowel movement, brown in color. Back to bed and resting. Original Note: Assess- Patients midline incision is open to air and well approximated. She had her aleja drain taken out yesterday and the dressing does have some serous fluid. Given one percolone for comfort and helpful. Patient is not allowed to have carbonated beverages at this time. Given a suppository and patient is waiting to see if she can go to the bathroom to have a bowel movement. Bowel tones are positive, patient states that she is not passing gas at this time.
[2021-03-31] MEDS: LOSARTAN 50 MG TABLET PO (13:19)
--- NOTE | 2021-03-31 15:20 | PT.IPTN ---
Current Diagnoses Abscess of intestine (03/28/21) Surgery Performed Operation Date: 03/28/21 10:45 Actual Procedures s Cystoscopy w/ Placement of Ureteral Stent(Bilateral) - Heraclio Ahumada MD p with small bowelbowel resection - Scott Mohr MD Physical Therapy Treatment Note M2 PT-IP Current Condition Start: 03/29/21 17:45 Freq: NEEDED Status: Active Protocol: Document 03/29/21 16:45 AB (Rec: 03/29/21 17:54 AB [id number]) Physical Therapy Current Condition Current Condition Evaluation Date 03/29/21 Treatment Diagnosis s/p colectomy, ureteral stent placement; difficulty in walking Onset Date 03/28/21 Precautions Abdominal Surgery Precautions Log Roll,Lifting Restrictions, Gait Belt above Incisional Area M3 PT-IP Subjective Start: 03/29/21 17:45 Freq: NEEDED Status: Active Protocol: Document 03/31/21 15:20 AB (Rec: 03/31/21 16:10 AB [id number]) Subjective Physical Therapy Visit Type Type Treatment Note Visit Start Time 15:20 Visit Stop Time 15:46 Total Visit Minutes 26 Number of LOAN TELLER Visits 0 Physical Therapy Visit Comments Patient Comments pt is agreeable to do PT Therapy Pain Assessment Pain When Pain Assessed At Rest Pain Present Pain Present Pain Reported Location abd Scale Used pain scale not stated M4 PT-IP Mobility and Gait Start: 03/29/21 17:45 Freq: NEEDED Status: Active Protocol: Document 03/31/21 15:20 AB (Rec: 03/31/21 16:10 AB [id number]) PT-Bed Mobility Assessment Rolling Type of Rolling Log Rolling Level of Assist Independent Supine to Sit Supine to Sit Independent Sit to Supine Sit to Supine Independent PT-Transfer Assessment Sit to and From Stand Sit to and from Stand Independent Equipment Transfer Assistive Device None,Gait Belt,Front Wheeled Walker Orthotic/Prosthetic Devices or Brace: No Transfers Transfer Destination Toilet Transfer Technique ambulated Transfer Ability Level of Assist Standby Assistance,Use of Upper Extremities Comments Mobility Comments pt supine in bed and agreed to do PT. completed supine to sit mod I log roll technique without cues. able to transfer to the toilet using FWW SBA. completed toileting without assistance and ambulated towards the sink using FWW SBA and able to stand SBA while completing handwashing. pt stated that she feels more comfortable using a FWW at this time. ambulated out in the hallway ~ 300 ft using FWW SBA without LOB. completed up/down platform step without AD SBA to CGA. pt will have family to assist her and pt stated that she has the wall on the R to hold on to for balance if needed. pt ambulated back to her room using FWW SBA. ambulated in room without AD 35 ft SBA. antalgic gait but without LOB. informed pt that no further PT intervention needed at this time and to ambulate with nurses as much as possible but can be independent in room using FWW. Pt agreed. Informed nurse and also agreed . Gait Assessment Gait Gait Assistance Required: Standby Assistance Distance (Feet) 300 Able to Maintain Weight Bearing Status Yes During Gait Assistive Devices Assistive Device None,Gait Belt,Front Wheeled Walker Orthotic/Prosthetic Devices or Brace: No Gait Deviations General Gait Pattern Antalgic Factors Limiting Gait Function Factors Limiting Gait Function Decreased Activity Tolerance, Pain Stair Climbing Assessment Evaluation Level of Assist On Stairs Standby Assistance,Contact Guard Assistance Devices Stair Climbing Assistive Devices None Technique/Endurance Stair Climbing Direction Ascend and Descend Stair Climbing Technique Step to Step Number of Steps Climbed 1 Stair Climbing Set # Repetitions (reps) 2 M5 PT-IP Objective Assessments Start: 03/29/21 17:45 Freq: NEEDED Status: Active Protocol: Document 03/29/21 16:45 AB (Rec: 03/29/21 17:54 AB [id number]) Orientation Orientation/Cognition Level of Alertness Alert Orientation Name,Place,Situation Language Function Ability No Deficits Noted Safety Awareness Decreased Safety Awareness Gross Range of Motion Lower Extremity ROM Assessment Within Functional Limits Strength Lower Extremity Strength Hip 4-/5 Knee 4-/5 Coordination Assessment Gross Coordination Gross Coordination WNL Sensation Assessment Sensation Gross Sensation WNL Muscle Tone Muscle Tone WNL Yes M6 PT-IP Treatment Start: 03/29/21 17:45 Freq: NEEDED Status: Active Protocol: Document 03/31/21 15:20 AB (Rec: 03/31/21 16:10 AB [id number]) Physical Therapy Treatment Education Education Provided Safety M7 PT-IP Assessment and Plan Start: 03/29/21 17:45 Freq: NEEDED Status: Active Protocol: Document 03/31/21 15:20 AB (Rec: 03/31/21 16:10 AB [id number]) PT Summary Assessment and Plan Potential Rehabilitation Potential Good Summary Impairments Pain,ROM,Strength,Balance,Bed Mobility,Transfers,Gait, Activity Tolerance Assessment Summary pt requiring SBA for safety but can be independent in room using FWW. informed nurse that pt will be d/c'd from PT and nurses to ambulate pt with supervision but independent in room using FWW. pt stated that she just gets tired easily due to her not able to eat at this time and can only have clear fluids. also informed case worker regarding d/c from PT. No further PT intervention indicated at this time. Pt understood and agreed. pt plans to go home with family to assist her as needed and may go home when medically stable. Goals Bed Mobility Goal Independent Transfer Goal Independent,Front Wheeled Walker Gait Goal Independent,Front Wheel Walker Gait Distance 300 Other Goals ambulation without AD 200 ft mod I up/down 1 step using FWW I Days to Meet Goals 10 Frequency of Treatment Frequency Of Treatment Discharge Treatment Plan Physical Therapy Treatment Plan Bed Mobility Training,Transfer Training,Gait Training, Therapeutic Exercise,Balance Retraining,Post Op Education, Discharge Planning,Hot or Cold Pack,Neuromuscular Re-ed, Coordination Retraining,Manual Therapy Precautions Abdominal Surgery Precautions Log Roll,Lifting Restrictions, Gait Belt above Incisional Area Recommendations To Nursing Amount of Assist Needed Standby Assistance Discharge Recommendations PT Discharge Recommendations Home with Assistance Transportation Needs at Discharge Private Vehicle
--- NOTE | 2021-03-31 18:46 | PM.PNPO.1 ---
Subjective Subjective Interval history: This morning felt a little distended with no bowel movements. Feels much better this evening after having multiple bowel movements. Exam Vital Signs (past 8 hours): - 03/31/21 12:33 03/31/21 16:00 Temperature 97.9 F 98.6 F Pulse Rate 70 65 Respiratory Rate 16 18 Blood Pressure 127/78 126/77 Pulse Oximetry 98 97 Oxygen Delivery Method Room Air Oxygen Flow Rate 0 Narrative Exam Narrative: Good respiratory effort. Her abdomen was distended this morning and less so this afternoon. It is soft. The incision is intact. No cellulitis. Objective Labs Result Diagrams: 03/31/21 04:16 03/31/21 04:16 Labs: Laboratory Results - last 24 hr 03/31/21 03/31/21 04:16 04:16 WBC 8.6 RBC 3.93 L Hgb 11.2 L Hct 34.4 L MCV 87.5 MCH 28.6 MCHC 32.7 RDW 14.9 H Plt Count 333 Neut % (Auto) 70.4 Lymph % (Auto) 18.0 L [place] % (Auto) 6.4 Eos % (Auto) 4.0 Baso % (Auto) 1.2 Neut # (Auto) 6100 Lymph # (Auto) 1600 [place] # (Auto) 600 Eos # (Auto) 300 Baso # (Auto) 100 Sodium 135 L Potassium 3.6 Chloride 103 Carbon Dioxide 25 BUN 4 L Creatinine 0.52 Estimated GFR > 60.0 BUN/Creatinine Ratio 7.7 Glucose 103 Calcium 8.3 L PFSH Medical History Abnormal thyroid blood test Abscess of sigmoid colon due to diverticulitis Anxiety Bradycardia Depression Diabetes Diabetes type 2, controlled Diabetic neuropathy associated with diabetes mellitus due to underlying condition Dyslipidemia HTN (hypertension) Hyperlipidemia Neuropathy Screening for malignant neoplasm of colon Smoker Surgical History Anesthesia History of bilateral tubal ligation History of colonoscopy History of endometriosis (~2004) History of laparoscopy (02/2021) Status post delivery (~1981) Family History Father Asthma Grandmother Tuberculosis Social History household members: family and children Smoking Status: Former smoker Tobacco: How many years used: 40 second hand exposure: Yes alcohol intake: current Assessment & Plan Post-op Postoperative Procedures: Procedures Operation Date: 03/28/21 10:45 Actual Procedure Side Surgeon s Cystoscopy w/ Placement of Ureteral Stent Bilateral Heraclio Ahumada MD p with small bowelbowel resection Scott Mohr MD
[2021-03-31] MEDS: GABAPENTIN 300 MG CAPSULE PO (21:05)
[2021-03-31] MEDS: FLUCONAZOLE 100 MG TABLET 200 MG PO (21:05)
[2021-04-01] VITALS (9 sets, daily range): BP systolic 109–131; BP diastolic 64–79; PULSE 57–92; RESP 14–18; TEMP 36.3–37.6; O2SAT 95–99
[2021-04-01] MEDS: ACETAMINOPHEN 325 MG TABLET 650 MG PO ×4 (00:07→17:54)
[2021-04-01] MEDS: OXYCODONE IR 5 MG TABLET PO ×5 (01:45→21:58)
[2021-04-01] MEDS: ENOXAPARIN 40 MG/0.4 ML SYRINGE SUBCUT (08:17)
[2021-04-01] MEDS: METFORMIN HCL 500 MG TABLET PO (08:17)
[2021-04-01] MEDS: LOSARTAN 50 MG TABLET PO (08:17)
[2021-04-01] MEDS: NIFEdipine 30 MG TAB ER PO (08:18)
[2021-04-01] MEDS: MULTIVIT,CALC,MINS/IRON/FOLIC 1 TABLET 1 TAB PO (08:18)
[2021-04-01] MEDS: FLUCONAZOLE 100 MG TABLET 200 MG PO (08:28)
[2021-04-01] MEDS: HYDROMORPHONE 0.5 MG INJ IV (08:28)
--- NOTE | 2021-04-01 11:55 | PM.PN.1 ---
Subjective Subjective Date Patient Seen: 04/01/21 Interval history: incision pain. Eating ok Exam Vital Signs (past 8 hours): - 04/01/21 05:40 04/01/21 08:00 04/01/21 08:17 Temperature 97.3 F L 99.6 F Pulse Rate 87 57 L 57 L Respiratory Rate 14 15 Blood Pressure 109/65 113/64 113/64 Pulse Oximetry 95 97 04/01/21 10:24 04/01/21 11:36 Temperature Pulse Rate Respiratory Rate 18 Blood Pressure Pulse Oximetry 95 Oxygen Delivery Method Room Air Oxygen Flow Rate 0 Narrative Exam Narrative: jacky in place, wound has no infection or fluid collection. abdomen is soft with incision tenderness. Objective Labs Result Diagrams: 03/31/21 04:16 03/31/21 04:16 PFSH Medical History Abnormal thyroid blood test Abscess of sigmoid colon due to diverticulitis Anxiety Bradycardia Depression Diabetes Diabetes type 2, controlled Diabetic neuropathy associated with diabetes mellitus due to underlying condition Dyslipidemia HTN (hypertension) Hyperlipidemia Neuropathy Screening for malignant neoplasm of colon Smoker Surgical History Anesthesia History of bilateral tubal ligation History of colonoscopy History of endometriosis (~2004) History of laparoscopy (02/2021) Status post delivery (~1981) Family History Father Asthma Grandmother Tuberculosis Social History household members: family and children Smoking Status: Former smoker Tobacco: How many years used: 40 second hand exposure: Yes alcohol intake: current Assessment & Plan Assessment & Plan narrative: Good post op progress, no complications Plan: advance diet as tolerated
--- NOTE | 2021-04-01 12:46 | PC.NURSE ---
Pt reports moderate to severe pain at start of shift: IV and PO pain meds administered and pt instructed to remind RN for pain meds Q4; ambulated in hallway with fww and daughter as escort; tolerating full liquid diet; drsg to R lap site changed due to drainage; jacky to mid-line intact and skin well-approximated, cora-skin intact; BTs active and pt reports passing gas, no stool
[2021-04-01] MEDS: GABAPENTIN 300 MG CAPSULE PO (21:58)
[2021-04-02] MEDS: ACETAMINOPHEN 325 MG TABLET 650 MG PO ×2 (00:23→06:18)
[2021-04-02 00:30] VITALS: BP 110/67; PULSE 76; RESP 16; TEMP 36.1; O2SAT 95
[2021-04-02 08:00] VITALS: BP 119/69; PULSE 70; RESP 17; TEMP 37.1; O2SAT 95
[2021-04-02] MEDS: FLUCONAZOLE 100 MG TABLET 200 MG PO (09:18)
[2021-04-02] MEDS: ENOXAPARIN 40 MG/0.4 ML SYRINGE SUBCUT (09:18)
[2021-04-02] MEDS: LOSARTAN 50 MG TABLET PO (09:18)
[2021-04-02] MEDS: NIFEdipine 30 MG TAB ER PO (09:24)
[2021-04-02] MEDS: MULTIVIT,CALC,MINS/IRON/FOLIC 1 TABLET 1 TAB PO (09:24)
[2021-04-02] MEDS: OXYCODONE IR 5 MG TABLET PO (09:24)
--- NOTE | 2021-04-02 11:07 | PM.DS.1 ---
History of Present Illness History of Present Illness Date Patient Seen: 04/02/21 Chief complaint: LAP-ASSISTED SIG COL W/CYSTO Narrative: S/p sigmoid colectomy due to diverticular abscess. Discharge Providers Provider Date of admission: 03/28/21 09:33 Discharge Date: 04/02/21 Primary care physician: MAR Harrison Consults: 03/29/21 09:26 Consult to Physical Therapy Evaluate & Treat Comment: Physician Instructions: Evaluate and Treat Discharge provider: Sandy Mensah MD Summary Hospital Course Discharge Diagnosis: Perforated diverticular abscess requiring Lap assisted sigmoid colectomy Hospital Course: IV antibiotics post op No complications Status at Discharge Cognitive/behavioral status at discharge: oriented Functional status at discharge: independent ambulation Overall status at discharge: patient is progressing back to baseline Time Spent with Patient Time spent: Less than 30 minutes Exam Vital Signs (past 8 hours): - 04/02/21 08:00 Temperature 98.7 F Pulse Rate 70 Respiratory Rate 17 Blood Pressure 119/69 Pulse Oximetry 95 Oxygen Delivery Method Room Air Oxygen Flow Rate 0 Const General: cooperative and comfortable HENMT Head: normocephalic and atraumatic Eyes Sclera: sclerae normal Neck Neck: trachea midline Chest Chest: normal inspection of the chest Resp Effort & Inspection: normal respiratory effort and able to speak in complete sentences Cardio Rate: regular rate Rhythm: regular rhythm GI Palpation: soft Other: jacky in place w/o much reaction. No infection or seroma. incision tenderness Skin General: turgor normal Neuro General: patient alert and patient oriented x3 Psych Judgment: judgment good Objective Labs Result Diagrams: 03/31/21 04:16 03/31/21 04:16 [facility] Medical History Abnormal thyroid blood test Abscess of sigmoid colon due to diverticulitis Anxiety Bradycardia Depression Diabetes Diabetes type 2, controlled Diabetic neuropathy associated with diabetes mellitus due to underlying condition Dyslipidemia HTN (hypertension) Hyperlipidemia Neuropathy Screening for malignant neoplasm of colon Smoker Surgical History Anesthesia History of bilateral tubal ligation History of colonoscopy History of endometriosis (~2004) History of laparoscopy (02/2021) Status post delivery (~1981) Family History Father Asthma Grandmother Tuberculosis Social History household members: family and children Smoking Status: Former smoker Tobacco: How many years used: 40 second hand exposure: Yes alcohol intake: current Discharge Assessment & Plan Assessment and Plan Assessment: Home. No further antibiotics. Sigmoid colectomy w/o complication Discharge Plan Discharge Plan Patient Disposition: Home Provider Discharge Comment: shower with wound open to water and pat dry, walk daily Discharge orders & Medications Prescriptions: New acetaminophen 325 mg Tablet 650 mg PO Q6HR Qty: 30 RF: 0 oxycodone 5 mg Tablet 5 mg PO Q4HR PRN (Reason: Pain, Moderate (4-6)) Qty: 15 RF: 0 Continued losartan 50 mg tablet 50 mg PO DAILY Qty: 90 RF: 0 gabapentin 300 mg capsule 300 mg PO BEDTIME Qty: 90 RF: 0 nifedipine 30 mg tablet extended release 24hr 30 mg PO DAILY Qty: 90 RF: 0 oxycodone 5 mg tablet 5 mg PO Q6H PRN (Reason: pain) Qty: 30 RF: 0 metformin 500 mg tablet extended release 24 hr 500 mg PO DAILY RF: 0 Discontinued metronidazole [Flagyl] 500 mg tablet 500 mg PO TID Qty: 3 RF: 0 levofloxacin 500 mg tablet 500 mg PO DAILY Qty: 7 RF: 0 Follow up/Referrals: Scott Mohr MD [Physician] - 1 Week Hunter Ashraf ARNP [Primary Care Provider] - Diet/Activity/Treatments Diet: Diet as Tolerated Activity: walk 2-3 times daily, no lifting greater than 15 lbs for 4 weeks Visit Report/Discharge Packet Instructions: DI for Colectomy, [facility]: Wound Care Stand Alone Forms: Surgery Discharge Discharge Data Primary Care Provider: Hunter Ashraf
--- NOTE | 2021-04-02 11:21 | PC.NURSE ---
IV site dc'd. pt up in room ambulating. discharge instructions reviewed with pt. pt dc'd via wheelchair
== END 2021-04-02 10:43 | disposition home or self-care (01) | DRG 331 ==
LOC: AC 10:34 → ICU 12:13 → AC 17:54
PROVIDERS: Urology; Admitting Provider Surgery; PCP Registered Nurse Diabetes Educator; Referring Provider Surgery; Visit Provider Surgery
PROC: 0T788DZ Dilation of Bilateral Ureters with Intraluminal Device, Via Natural or Artificial Opening Endoscopic (ICD-10-PCS; principal; 2021-03-28 10:45)
PROC: 0DTE0ZZ Resection of Large Intestine, Open Approach (ICD-10-PCS; 2021-03-28 10:45)
DX: K57.20 Diverticulitis of large intestine with perforation and abscess without bleeding (principal); K66.0 Peritoneal adhesions (postprocedural) (postinfection); E11.40 Type 2 diabetes mellitus with diabetic neuropathy, unspecified; I10 Essential (primary) hypertension; Z20.822 Contact with and (suspected) exposure to COVID-19; Z87.891 Personal history of nicotine dependence; Z79.84 Long term (current) use of oral hypoglycemic drugs
CPT/HCPCS: 36415; 44206; 52332; 76000; 80048; 82962; 85025; 87070; 87075; 87077; 87205; 87635; 94760; 97116; 97161; C9803; J0131; J1100; J1170; J1650; J1815; J2250; J2405; J2543; J2704; J3010

== ENCOUNTER → 2021-06-23 10:06 | Outpatient (CLI) | payer MEDICARE, OTHER, SELFPAY ==
[2021-03-28 18:29] VITALS: BMI 21.4
[2021-06-23 11:12] LABS: Hemoglobin A1C% w Est Avg Glu 6.7 % (4.0-6.0)
[2021-06-23 12:18] LABS: Free T3, Triiodothyronine Free 3.75 pg/mL (2.77-5.27); Free T4, Direct Thyroxine 1.17 ng/dL (0.78-2.19)
[2021-06-23 12:32] LABS: Thyroid Stimulating Hormone 0.313 uIU/mL (0.47-4.68)
== END ==
PROVIDERS: PCP Registered Nurse Diabetes Educator; Referring Provider Registered Nurse Diabetes Educator; Visit Provider Registered Nurse Diabetes Educator
DX: E11.9 Type 2 diabetes mellitus without complications (principal); R79.89 Other specified abnormal findings of blood chemistry; E11.42 Type 2 diabetes mellitus with diabetic polyneuropathy
CPT/HCPCS: 36415; 83036; 84439; 84443; 84481

== ENCOUNTER → 2021-12-15 10:33 | Outpatient (CLI) | payer MEDICARE, OTHER, SELFPAY ==
[2021-03-28 18:29] VITALS: BMI 21.4
[2021-12-15 12:41] LABS: Hemoglobin A1C% w Est Avg Glu 7.4 % (4.0-6.0)
[2021-12-15 13:50] LABS: Free T4, Direct Thyroxine 1.41 ng/dL (0.78-2.19)
== END ==
PROVIDERS: PCP Registered Nurse Diabetes Educator; Referring Provider Registered Nurse Diabetes Educator; Visit Provider Registered Nurse Diabetes Educator
DX: M81.0 Age-related osteoporosis without current pathological fracture (principal); Z78.0 Asymptomatic menopausal state; Z13.820 Encounter for screening for osteoporosis; E11.42 Type 2 diabetes mellitus with diabetic polyneuropathy; R79.89 Other specified abnormal findings of blood chemistry; F17.200 Nicotine dependence, unspecified, uncomplicated
CPT/HCPCS: 36415; 77080; 83036; 84439; 84443

== ENCOUNTER → 2022-02-21 11:41 | Outpatient (CLI) | payer MEDICARE, OTHER, SELFPAY ==
[2021-03-28 18:29] VITALS: BMI 21.4
[2022-02-21 12:48] LABS: COVID19 -Nasal RAPID Negative (Negative)
== END ==
PROVIDERS: PCP Registered Nurse Diabetes Educator; Visit Provider Surgery
DX: Z20.822 Contact with and (suspected) exposure to COVID-19 (principal); Z01.812 Encounter for preprocedural laboratory examination
CPT/HCPCS: 87635; C9803

== ENCOUNTER 2022-02-22 07:35 | Day surgery (SDC) | payer MEDICARE, OTHER, SELFPAY ==
[2021-03-28 18:29] VITALS: BMI 21.4
[2022-02-22] VITALS (7 sets, daily range): BP systolic 104–148; BP diastolic 56–83; PULSE 45–63; RESP 16–19; TEMP 36.2–36.4; O2SAT 96–100; BMI 20.7
--- NOTE | 2022-02-22 | PATH_ITS ---
[facility] Accession Number: [id number] . 01 Material submitted: . PART A: colon - DESCENDING COLON POLYP PART B: colon - TRANSVERSE COLON POLYPS . 01 Clinical history: . COLONOSCOPY ENCOUNTER FOR SCREENING FOR MAGLIGNANT NEOPLASM . 01 Diagnosis: A. Descending Colon Polyp, Biopsy: Colonic mucosa with no diagnostic abnormality, consistent with polypoid redundancy. Negative for serrated lesion, dysplasia, or malignancy. . B. Transverse Colon Polyp, Biopsy: Tubular adenoma. MRV 02/26/2022 1200 Local . 01 Electronically signed: . Derrick Arias MD, PhD, Pathologist NPI- [id number] . 01 Gross description: . Part A: DESCENDING COLON POLYP: Received in formalin is 1 fragment(s) of dykes, soft tissue measuring 0.3 x 0.2 x 0.2 cm submitted entirely in 1 cassette(s) Part B: TRANSVERSE COLON POLYPS: Received in formalin is 1 fragment(s) of dykes, soft tissue measuring 0.4 x 0.3 x 0.2 cm submitted entirely in 1 cassette(s) /CPE 02/23/2022 0326 Local . 01 Pathologist provided ICD-10: D12.3 . 01 CPT . 698064, [id number] Specimen Comment: A courtesy copy of this report has been sent to [phone] Performed at: 01 [facility] [address] [place] [id number] MD Brian Conner MD Phone: [phone]
[2022-02-22] MEDS: LACTATED RINGERS 1,000 ML 42 ML IV (07:59)
--- NOTE | 2022-02-22 09:16 | PM.HP.1 ---
History of Present Illness History of Present Illness Date Patient Seen: 02/22/22 Time Patient Seen: 09:16 Chief complaint: Colonoscopy Narrative: The patient presents for colorectal screening. Last colonoscopy was approximately 10 years ago and notable for few polyps she says. Last year she underwent a laparoscopic sigmoid colectomy for recurrent diverticulosis. No personal or family history of colon cancer. On further history denies any recent gastrointestinal symptoms. No nausea, vomiting, abdominal pain, loss of appetite, unexplained weight loss, change in bowel habits, diarrhea, constipation, melena, hematochezia, or bright red blood per rectum. Patient History Medical History Abnormal thyroid blood test Abscess of sigmoid colon due to diverticulitis Anxiety Bradycardia Depression Diabetes Diabetes type 2, controlled Diabetic neuropathy associated with diabetes mellitus due to underlying condition Dyslipidemia HTN (hypertension) Hyperlipidemia Neuropathy Osteoporosis Screening for malignant neoplasm of colon Smoker Surgical History Anesthesia History of bilateral tubal ligation History of colonoscopy History of endometriosis (~2004) History of laparoscopy (02/2021) Status post delivery (~1981) Family & Social History Family History Father Asthma Grandmother Tuberculosis Social History: household members family,children Tobacco & Substance use: Tobacco type cigarettes Smoking Status Current every day smoker alcohol intake never alcohol intake frequency holiday/special occasion Substance Use Type does not use Meds Home Medications and Allergies Home Medications Medication Instructions Recorded Confirmed Type acetaminophen 325 mg tablet 650 mg PO Q6HR #30 tabs 04/02/21 02/22/22 Rx losartan 50 mg tablet 50 mg PO DAILY #90 tabs 05/02/21 06/27/21 Rx nifedipine 30 mg tablet,extended 30 mg PO DAILY #90 tabs 05/02/21 02/22/22 Rx release 24 hr gabapentin 300 mg capsule 300 mg PO BEDTIME #90 caps 06/27/21 02/22/22 Rx sodium,potassium,mag sulfates 17.5 See Rx Instructions PO .COMPLEX 02/08/22 Rx gram-3.13 gram-1.6 gram oral soln #354 mL (Suprep Bowel Prep Kit) Allergies Allergy/AdvReac Type Severity Reaction Status Date / Time sulfamethoxazole Allergy Mild Hives Verified 02/22/22 07:57 [From ] trimethoprim [From ] Allergy Mild Hives Verified 02/22/22 07:57 Exam Vital Signs (past 8 hours): - 02/22/22 07:52 Temperature 97.6 F Pulse Rate 63 Respiratory Rate 16 Blood Pressure 148/83 H Pulse Oximetry 100 Oxygen Delivery Method Room Air Oxygen Delivery Method Room Air Narrative Exam Narrative: General adult woman alert oriented no acute distress Chest nonlabored respirations Abdomen soft nontender nondistended Assessment & Plan Assessment & Plan narrative: The patient requires colorectal screening and colonoscopy is recommended. Technical details were discussed. Risks, benefits, alternatives explained. Risks including but not limited to myocardial infarction, aspiration, bleeding, pain, missed lesion, incomplete examination, need for further radiographic studies, colonic perforation, and need for major abdominal surgery were discussed. All questions were answered to their satisfaction, and they are in agreement with this plan. Time Spent With Patient Critical Care time: I spent a total of [] minutes of critical care time on this patient's care today; this time is exclusive of procedural time.
[2022-02-22] MEDS: fentaNYL 250 MCG/5 ML INJ 50 MCG IV (09:21)
[2022-02-22] MEDS: MIDAZOLAM 5 MG/5 ML VIAL 3 MG IV (09:21)
--- NOTE | 2022-02-22 09:37 | PM.OP.COLON ---
Operative Date/Time/Diagnoses Date of procedure: 02/22/22 Time of procedure: 09:37 Pre-op diagnosis: Screening colonoscopy Post-op diagnosis: same Procedure & Clinicians Study performed: Colonoscopy Same procedure as scheduled: Yes Indications: Screening Surgeon: Scott Mohr Procedure Notes Procedure in detail: Medications: Conscious sedation using *mg IV midazolam and *mcg IV of fentanyl The history and physical was performed/updated and the patient is ASA class is *. The procedure was discussed in detail with the patient. Potential risks complications including infection, bleeding, missed diagnosis, perforation, need for surgery, and were explained. Their questions were answered and informed consent was obtained. Patient was brought to the procedure room and placed standard monitoring equipment. The patient's vital signs were monitored continuously throughout the entire procedure. Prior to starting time-out was performed. The patient was placed in the left lateral recumbent position. Procedural sedation was administered. Examination began with a thorough inspection of the perianal area there was no evidence of fissures, fistulae, external hemorrhoids or cutaneous malignancy. The colonoscopy scope was then placed into the anal canal and was advanced to the cecum, which was identified by the ileocecal valve, the appendiceal orifice and the confluence of the taenia. The scope was then slowly withdrawn examining colon thoroughly in all directions, irrigating it of any residual stool. FINDINGS 1. Descending colon. One 5 mm polyp removed with forceps. 2. Transverse colon. Two 5 mm polyps removed with forceps 3. Colorectal anastomosis widely patent The patient tolerated the procedure well. They will be discharged once criteria are met. The prep was of good/excellent quality. The withdrawl time was 8 minutes. The sedation time was 15 minutes. Specimen(s): other (Descending and transverse colonic polyps) Complications: none Impression: Colonic polyps Post-procedure Recommendations: Colonoscopy in 5 years Disposition: same day surgery
== END 2022-02-22 11:00 | disposition home or self-care (01) ==
PROVIDERS: PCP Registered Nurse Diabetes Educator; Referring Provider Surgery; Visit Provider Surgery
PROC: 0DJD8ZZ Inspection of Lower Intestinal Tract, Via Natural or Artificial Opening Endoscopic (ICD-10-PCS; CPT 45378; principal; 2022-02-22 09:00)
DX: Z12.11 Encounter for screening for malignant neoplasm of colon (principal); Z86.010 Personal history of colon polyps; Z98.0 Intestinal bypass and anastomosis status; E11.40 Type 2 diabetes mellitus with diabetic neuropathy, unspecified; I10 Essential (primary) hypertension; E78.5 Hyperlipidemia, unspecified; F32.A Depression, unspecified; F41.9 Anxiety disorder, unspecified; F17.210 Nicotine dependence, cigarettes, uncomplicated; D12.3 Benign neoplasm of transverse colon
CPT/HCPCS: 45380; 99152; J2250; J3010

== ENCOUNTER → 2022-04-06 10:36 | Outpatient (CLI) | payer MEDICARE, OTHER, SELFPAY ==
[2021-03-28 18:29] VITALS: BMI 21.4
--- NOTE | 2022-04-06 10:38 | DI.RAD.S_ITS ---
PROCEDURE: XR LUMBAR SPINE 2-3V INDICATIONS: eval chronic LBP TECHNIQUE: 3 views of the lumbar spine were acquired. COMPARISON: None. FINDINGS: Bones: 5 [id number] vertebrae are present. Facet arthropathy results in grade 1 degenerative anterolisthesis of L4 on L5 measuring 10 mm. The disc at L4-L5 is faintly visualized. There is probable significant bilateral foraminal narrowing at L4-L5. No vertebral body compression fractures. No suspicious bony lesions. Soft tissues: Overlying bowel gas pattern is normal. No suspicious soft tissue calcifications. IMPRESSION: There is facet arthropathy resulting in grade 1 anterolisthesis of L4 on L5 and probable significant bilateral foraminal narrowing at this level. Comment: Lumbar spine MRI and possible flexion and extension views of the lumbar spine may be helpful. Dictated by: Deonte Jerome M.D. on 04/06/2022 at 13:01 Approved by: Deonte Jerome M.D. on 04/06/2022 at 13:06
[2022-04-06 12:51] LABS: Hematocrit 46.9 % (36-46); Hemoglobin 15.9 g/dL (12.0-16.0); Mean Corpuscular HGB Conc 33.9 % (30-36); Mean Corpuscular Hemoglobin 30.3 PG (26-34); Mean Corpuscular Volume 89.4 fL (80-100); Platelet Count 185 X10^3/uL (150-400); Red Blood Cell Count 5.25 X10^6/uL (4.0-5.2); Red Cell Distribution Width 13.8 % (11.6-14.8); White Blood Cell Count 6.8 X10^3/uL (4.5-11.0)
[2022-04-06 13:05] LABS: Hemoglobin A1C% w Est Avg Glu 7.3 % (4.0-6.0)
[2022-04-06 13:47] LABS: HEMOLYSIS < 15 (0-50); Iron 134 ug/dL (37-170)
[2022-04-06 13:53] LABS: Alanine Aminotransferase 24 IU/L (<35); Albumin 4.7 g/dL (3.5-5.0); Albumin Globulin Ratio 1.4 (1.0-2.8); Alkaline Phosphatase 104 U/L (38-126); Aspartate Aminotransferase 25 IU/L (14-36); BUN Creatinine Ratio 24.7 (6-22); Bilirubin Total 0.7 mg/dL (0.2-1.3); Blood Urea Nitrogen 18 mg/dL (7-17); Calcium 9.6 mg/dL (8.4-10.2); Carbon Dioxide 26 mmol/L (22-32); Chloride 105 mmol/L (98-107); Estimated Glomerular Filt Rate > 60 mL/min (>60); Globulin 3.4 g/dL (1.7-4.1); Glucose 127 mg/dL (80-110); HEMOLYSIS < 15 (0-50); Potassium 4.4 mmol/L (3.4-5.1); Sodium 139 mmol/L (137-145); Total Protein 8.1 g/dL (6.3-8.2)
[2022-04-06 13:58] LABS: Percent Iron Saturation 40 % (15-50); Total Iron Binding Capacity 331 ug/dL (265-497); Transferrin 268 mg/dL (206-381)
[2022-04-06 14:15] LABS: TSH w/ Reflex to FT4 0.45 uIU/mL (0.47-4.68)
[2022-04-06 14:20] LABS: Ferritin 21 ng/mL (11-264)
[2022-04-06 14:35] LABS: Vitamin B12 Reflex MMA if <400 506 pg/mL (239-931)
[2022-04-06 14:42] LABS: Free T4, Direct Thyroxine 1.48 ng/dL (0.78-2.19)
[2022-04-06 15:18] LABS: Microalbumin Urine Random < 0.6 mg/dL (0-1.6)
[2022-04-06 15:27] LABS: Vitamin D 25 Hydroxy (D3) 35.2 ng/mL (30.0-100.0)
[2022-04-06 15:31] LABS: Creatinine Urine Random 31.2 mg/dL
== END ==
PROVIDERS: PCP Registered Nurse Diabetes Educator; Referring Provider Registered Nurse Diabetes Educator; Visit Provider Registered Nurse Diabetes Educator
DX: M54.9 Dorsalgia, unspecified (principal); E08.42 Diabetes mellitus due to underlying condition with diabetic polyneuropathy; R20.2 Paresthesia of skin; M81.0 Age-related osteoporosis without current pathological fracture; G89.29 Other chronic pain; G25.81 Restless legs syndrome; E11.42 Type 2 diabetes mellitus with diabetic polyneuropathy; E78.5 Hyperlipidemia, unspecified; I10 Essential (primary) hypertension; R79.89 Other specified abnormal findings of blood chemistry; M43.16 Spondylolisthesis, lumbar region; M48.061 Spinal stenosis, lumbar region without neurogenic claudication
CPT/HCPCS: 36415; 72100; 80053; 82043; 82306; 82570; 82607; 82728; 83036; 83540; 83550; 84439; 84443; 85027

== ENCOUNTER → 2022-09-05 10:35 | Outpatient (CLI) | payer MEDICARE, OTHER, SELFPAY ==
[2021-03-28 18:29] VITALS: BMI 21.4
[2022-09-05 11:22] LABS: COVID19 -Nasal RAPID Negative (Negative)
== END ==
PROVIDERS: PCP Registered Nurse Diabetes Educator; Visit Provider Registered Nurse Diabetes Educator
DX: R05.9 Cough, unspecified (principal); Z20.822 Contact with and (suspected) exposure to COVID-19
CPT/HCPCS: 87635

== ENCOUNTER → 2022-11-08 10:15 | Outpatient (CLI) | payer MEDICARE, OTHER, SELFPAY ==
[2021-03-28 18:29] VITALS: BMI 21.4
[2022-11-08 12:11] LABS: Ferritin 45 ng/mL (11-264)
== END ==
PROVIDERS: PCP Registered Nurse Diabetes Educator; Referring Provider Registered Nurse Diabetes Educator; Visit Provider Registered Nurse Diabetes Educator
DX: G25.81 Restless legs syndrome; R79.89 Other specified abnormal findings of blood chemistry
CPT/HCPCS: 36415; 82728; 83036; 84443

== ENCOUNTER → 2023-04-17 11:18 | Outpatient (CLI) | payer MEDICARE, OTHER, SELFPAY ==
[2021-03-28 18:29] VITALS: BMI 21.4
[2023-04-17 12:45] LABS: Hematocrit 45.3 % (36-46); Hemoglobin 15.5 g/dL (12.0-16.0); Mean Corpuscular HGB Conc 34.2 % (30-36); Mean Corpuscular Hemoglobin 30.4 PG (26-34); Mean Corpuscular Volume 88.7 fL (80-100); Platelet Count 199 X10^3/uL (150-400); Red Cell Distribution Width 14.4 % (11.6-14.8); White Blood Cell Count 6.4 X10^3/uL (4.5-11.0)
[2023-04-17 12:59] LABS: Hemoglobin A1C% w Est Avg Glu 7.5 % (4.0-6.0)
[2023-04-17 13:18] LABS: Alanine Aminotransferase 25 IU/L (<35); Albumin 4.3 g/dL (3.5-5.0); Albumin Globulin Ratio 1.4 (1.0-2.8); Alkaline Phosphatase 58 U/L (38-126); Aspartate Aminotransferase 24 IU/L (14-36); BUN Creatinine Ratio 18.1 (6-22); Bilirubin Total 0.7 mg/dL (0.2-1.3); Blood Urea Nitrogen 13 mg/dL (7-17); Carbon Dioxide 26 mmol/L (22-32); Chloride 103 mmol/L (98-107); Cholesterol 196 mg/dL (140-199); Estimated Glomerular Filt Rate > 60 mL/min (>60); Glucose 129 mg/dL (80-110); HDL Cholesterol 57 mg/dL (40-60); HEMOLYSIS < 15 (0-50); LDL Cholesterol Calculated 113 mg/dL (<100); Potassium 5.2 mmol/L (3.4-5.1); Sodium 137 mmol/L (137-145); Total Protein 7.3 g/dL (6.3-8.2); Triglycerides 132 mg/dL (35-150)
[2023-04-17 13:55] LABS: TSH w/ Reflex to FT4 0.61 uIU/mL (0.47-4.68)
[2023-04-17 16:42] LABS: Creatinine Urine Random 14.9 mg/dL
[2023-04-17 16:51] LABS: Microalbumin Urine Random < 0.6 mg/dL (0-1.6)
== END ==
PROVIDERS: PCP Registered Nurse Diabetes Educator; Referring Provider Registered Nurse Diabetes Educator; Visit Provider Registered Nurse Diabetes Educator
DX: E11.9 Type 2 diabetes mellitus without complications (principal); E78.5 Hyperlipidemia, unspecified; I10 Essential (primary) hypertension; R79.89 Other specified abnormal findings of blood chemistry
CPT/HCPCS: 36415; 80053; 80061; 82043; 82570; 83036; 84443; 85027

== ENCOUNTER → 2023-04-24 10:29 | Outpatient (CLI) | payer MEDICARE, OTHER, SELFPAY ==
[2021-03-28 18:29] VITALS: BMI 21.4
[2023-04-24 11:29] LABS: BUN Creatinine Ratio 12.5 (6-22); Blood Urea Nitrogen 8 mg/dL (7-17); Calcium 9.7 mg/dL (8.4-10.2); Carbon Dioxide 25 mmol/L (22-32); Chloride 104 mmol/L (98-107); Estimated Glomerular Filt Rate > 60 mL/min (>60); Glucose 168 mg/dL (80-110); HEMOLYSIS < 15 (0-50); Potassium 4.8 mmol/L (3.4-5.1); Sodium 137 mmol/L (137-145)
== END ==
PROVIDERS: PCP Registered Nurse Diabetes Educator; Referring Provider Registered Nurse Diabetes Educator; Visit Provider Registered Nurse Diabetes Educator
DX: E87.5 Hyperkalemia (principal)
CPT/HCPCS: 36415; 80048

== ENCOUNTER → 2023-06-12 | Outpatient (CLI) | payer MEDICARE, OTHER, SELFPAY ==
[2021-03-28 18:29] VITALS: BMI 21.4
--- NOTE | 2023-06-12 | DI.MG.S_ITS ---
BILATERAL DIGITAL SCREENING MAMMOGRAM 3D/2D WITH CAD: 06/12/2023 CLINICAL: Routine screening. Comparison is made to exam dated: 12/15/2013 mammogram - [facility]. There are scattered areas of fibroglandular density in both breasts (category b / 25%-50% glandular tissue). Current study was also evaluated with a Computer Aided Detection (CAD) system. No significant masses, calcifications, or other findings are seen in either breast. There has been no significant interval change. IMPRESSION: NEGATIVE There is no mammographic evidence of malignancy. A 1 year screening mammogram is recommended. Based on the Tyrer Cuzick model (a risk assessment model) the patient's lifetime risk is 4.9% and her 10 year risk is 3.4%. According to the ACR, ACS, and NCCN guidelines, an annual breast MRI exam along with mammogram is recommended if the patient's lifetime risk is 20% or greater. This exam was interpreted at Station ID: [id number]. NOTE: For mammograms, a report in lay terms will be sent to the patient. Approximately 15% of breast malignancies will not be visualized mammographically. In the management of a palpable breast mass, a negative mammogram must not discourage biopsy of a clinically suspicious lesion. Electronically Signed By: Selena goodson/agueda:06/13/2023 11:59:16 letter sent: Normal Exam ACR BI-RADS Category 1: Negative [id number]
--- NOTE | 2023-06-12 15:12 | DI.RAD.S_ITS ---
Bone Density Report Name: TY WAKEFIELD Age: 73 Sex: Female Ethnicity: White Date of : 1950 Indication: postmenopausal osteoporosis; Referring Provider: BRITANY PICKENS Study: Bone densitometry was performed. Exam Date: June 12, 2023 Accession number: [id number] Bone Density: Region BMD T-score Z-score Classification AP Spine(L1, L2, L4) 0.802 -2.1 0.0 Osteopenia Femoral Neck (Left) 0.597 -2.3 -0.4 Osteopenia Total Hip (Left) 0.755 -1.5 0.0 Osteopenia Femoral Neck (Right) 0.598 -2.3 -0.4 Osteopenia Total Hip (Right) 0.734 -1.7 -0.1 Osteopenia Total Hip Mean 0.744 -1.6 -0.1 Osteopenia World Health Organization criteria for BMD impression classify patients as: Normal (T-score at or above -1.0), Osteopenia (T-score between -1.0 and -2.5), or Osteoporosis (T-score at or below -2.5). Previous Exams: -- Region Exam Age BMD T-score BMD Change BMD Change Date g/cm2 vs Baseline vs Previous -- AP Spine (L1-L2,L4) 06/12/2023 73 0.802 -2.1 0.060 (8.1%)# 0.060 (8.1%)12/15/2021 71 0.741 -2.7 Total Hip(Left) 06/12/2023 73 0.755 -1.5 0.011 (1.5%)# 0.011 (1.5%)# 12/15/2021 71 0.744 -1.6 Total Hip(Right) 06/12/2023 73 0.734 -1.7 0.015 (2.0%)# 0.015 (2.0%)# 12/15/2021 71 0.719 -1.8 -- *Denotes significance at 95% confidence level, LSC for AP Spine = 0.022 g/cm2, LSC for Total Hip = 0.027 g/cm2 # Denotes dissimilar scan types or analysis methods Impression: The patient has low bone mass, based on the Left Femoral Neck T-score. No significant bone loss was observed. Discussion: BONE DENSITY IS LOW AT ONE OR MORE SKELETAL SITES. This patient's lowest T-score is low at one or more skeletal sites. It meets the World Health Organization's (WHO) criteria for low bone mass (T-score between -1.0 and -2.5). The patient's 10-year risk of fracture as calculated by FRAX is less than the threshold where pharmacological therapy is recommended by the National Osteoporosis Foundation (NOF). However, all treatment decisions require clinical judgment and consideration of individual patient factors, including patient preferences, comorbidities, previous drug use, risk factors not captured in the FRAX model (e.g., frailty, falls, vitamin D deficiency, increased bone turnover, interval significant decline in bone density) and possible under or overestimation of fracture risk by FRAX. The patient should follow a healthful lifestyle (good nutrition with adequate calcium and vitamin D, and appropriate weight-bearing exercise). Follow-Up: Consider repeating this study in 2 to 3 years to reassess this patient's status, or sooner if there is some new clinical indication. Reported by: KIKO GUADALUPE M.D. on 06/12/2023 3:38:00 PM.
== END ==
PROVIDERS: PCP Registered Nurse Diabetes Educator; Referring Provider Registered Nurse Diabetes Educator; Visit Provider Registered Nurse Diabetes Educator
DX: M81.0 Age-related osteoporosis without current pathological fracture (principal); Z12.31 Encounter for screening mammogram for malignant neoplasm of breast
CPT/HCPCS: 77063; 77067; 77080

== ENCOUNTER → 2023-07-18 10:57 | Outpatient (CLI) | payer MEDICARE, OTHER, SELFPAY ==
[2021-03-28 18:29] VITALS: BMI 21.4
[2023-07-18 11:44] LABS: Hemoglobin A1C% w Est Avg Glu 7.9 % (4.0-6.0)
[2023-07-18 11:48] LABS: Cholesterol 179 mg/dL (140-199); HDL Cholesterol 52 mg/dL (40-60); LDL Cholesterol Calculated 100 mg/dL (<100); Triglycerides 137 mg/dL (35-150)
== END ==
PROVIDERS: PCP Registered Nurse Diabetes Educator; Referring Provider Registered Nurse Diabetes Educator; Visit Provider Registered Nurse Diabetes Educator
DX: E11.9 Type 2 diabetes mellitus without complications (principal); E78.5 Hyperlipidemia, unspecified
CPT/HCPCS: 36415; 80061; 83036

== ENCOUNTER → 2023-10-08 10:20 | Outpatient (CLI) | payer MEDICARE, OTHER, SELFPAY ==
[2021-03-28 18:29] VITALS: BMI 21.4
[2023-10-08 11:51] LABS: HEMOLYSIS < 15 (0-50); Potassium 4.9 mmol/L (3.4-5.1)
[2023-10-08 11:52] LABS: Alanine Aminotransferase 17 IU/L (<35); Albumin 4.6 g/dL (3.5-5.0); Albumin Globulin Ratio 1.4 (1.0-2.8); Alkaline Phosphatase 55 U/L (38-126); Aspartate Aminotransferase 21 IU/L (14-36); BUN Creatinine Ratio 15.5 (6-22); Bilirubin Total 0.6 mg/dL (0.2-1.3); Blood Urea Nitrogen 11 mg/dL (7-17); Calcium 9.4 mg/dL (8.4-10.2); Carbon Dioxide 26 mmol/L (22-32); Chloride 107 mmol/L (98-107); Cholesterol 168 mg/dL (140-199); Estimated Glomerular Filt Rate > 60 mL/min (>60); Globulin 3.4 g/dL (1.7-4.1); Glucose 134 mg/dL (80-110); HDL Cholesterol 62 mg/dL (40-60); LDL Cholesterol Calculated 72 mg/dL (<100); Sodium 139 mmol/L (137-145); Triglycerides 172 mg/dL (35-150)
[2023-10-08 11:59] LABS: Hemoglobin A1C% w Est Avg Glu 7.4 % (4.0-6.0)
== END ==
PROVIDERS: PCP Registered Nurse Diabetes Educator; Referring Provider Registered Nurse Diabetes Educator; Visit Provider Registered Nurse Diabetes Educator
DX: E11.9 Type 2 diabetes mellitus without complications (principal); E78.5 Hyperlipidemia, unspecified
CPT/HCPCS: 36415; 80053; 80061; 83036

== ENCOUNTER → 2024-03-30 10:20 | Outpatient (CLI) | payer MEDICARE, OTHER, SELFPAY ==
[2021-03-28 18:29] VITALS: BMI 21.4
[2024-03-30 11:17] LABS: Hematocrit 45.7 % (36-46); Hemoglobin 15.5 g/dL (12.0-16.0); Mean Corpuscular HGB Conc 33.8 % (30-36); Mean Corpuscular Hemoglobin 29.9 PG (26-34); Mean Corpuscular Volume 88.3 fL (80-100); Platelet Count 198 X10^3/uL (150-400); Red Blood Cell Count 5.17 X10^6/uL (4.0-5.2); Red Cell Distribution Width 14.3 % (11.6-14.8); White Blood Cell Count 5.7 X10^3/uL (4.5-11.0)
[2024-03-30 11:50] LABS: Alanine Aminotransferase 14 IU/L (<35); Albumin 4.1 g/dL (3.5-5.0); Albumin Globulin Ratio 1.5 (1.0-2.8); Alkaline Phosphatase 52 U/L (38-126); Aspartate Aminotransferase 19 IU/L (14-36); BUN Creatinine Ratio 17.6 (6-22); Bilirubin Total 0.8 mg/dL (0.2-1.3); Blood Urea Nitrogen 12 mg/dL (7-17); Carbon Dioxide 23 mmol/L (22-32); Chloride 108 mmol/L (98-107); Cholesterol 189 mg/dL (140-199); Estimated Glomerular Filt Rate > 60 mL/min (>60); Globulin 2.8 g/dL (1.7-4.1); Glucose 130 mg/dL (80-110); HDL Cholesterol 52 mg/dL (40-60); HEMOLYSIS < 15 (0-50); LDL Cholesterol Calculated 111 mg/dL (<100); Potassium 4.3 mmol/L (3.4-5.1); Sodium 138 mmol/L (137-145); Total Protein 6.9 g/dL (6.3-8.2); Triglycerides 129 mg/dL (35-150)
[2024-03-30 12:09] LABS: Vitamin D 25 Hydroxy (D3) 46.3 ng/mL (30.0-100.0)
[2024-03-30 14:58] LABS: Hemoglobin A1C% w Est Avg Glu 6.9 % (4.0-6.0)
[2024-03-30 16:17] LABS: Creatinine Urine Random 26.98 mg/dL
[2024-03-30 16:19] LABS: Microalbumin Urine Random < 0.6 mg/dL (0-1.6)
== END ==
PROVIDERS: PCP Registered Nurse Diabetes Educator; Referring Provider Registered Nurse Diabetes Educator; Visit Provider Registered Nurse Diabetes Educator
DX: E11.9 Type 2 diabetes mellitus without complications (principal); M81.0 Age-related osteoporosis without current pathological fracture; E78.5 Hyperlipidemia, unspecified; I10 Essential (primary) hypertension
CPT/HCPCS: 36415; 80053; 80061; 82043; 82306; 82570; 83036; 85027

== ENCOUNTER → 2024-07-14 12:43 | Outpatient (CLI) | payer MEDICARE, OTHER, SELFPAY ==
[2021-03-28 18:29] VITALS: BMI 21.4
--- NOTE | 2024-07-14 12:44 | DI.MG.S_ITS ---
BILATERAL DIGITAL SCREENING MAMMOGRAM 3D/2D WITH CAD: 07/14/2024 CLINICAL: Routine screening. Comparison is made to exams dated: 06/12/2023 mammogram and 12/15/2013 mammogram - [facility]. There are scattered areas of fibroglandular density (category b / 25%-50% glandular tissue). Current study was also evaluated with a Computer Aided Detection (CAD) system. No significant masses, calcifications, or other findings are seen in either breast. There has been no significant interval change. IMPRESSION: NEGATIVE There is no mammographic evidence of malignancy. A 1 year screening mammogram is recommended. Based on the Tyrer Cuzick model (a risk assessment model) the patient's lifetime risk is 4.6% and her 10 year risk is 3.5%. According to the ACR, ACS, and NCCN guidelines, an annual breast MRI exam along with mammogram is recommended if the patient's lifetime risk is 20% or greater. This exam was interpreted at Station ID: [id number]. NOTE: For mammograms, a report in lay terms will be sent to the patient. Approximately 15% of breast malignancies will not be visualized mammographically. In the management of a palpable breast mass, a negative mammogram must not discourage biopsy of a clinically suspicious lesion. Electronically Signed By: Monika celestin/agueda:07/15/2024 13:15:53 letter sent: Normal Exam ACR BI-RADS Category 1: Negative
== END ==
LOC: MAMMO 12:44
PROVIDERS: PCP Registered Nurse Diabetes Educator; Referring Provider Registered Nurse Diabetes Educator; Visit Provider Registered Nurse Diabetes Educator
DX: Z12.31 Encounter for screening mammogram for malignant neoplasm of breast (principal)
CPT/HCPCS: 77063; 77067

== ENCOUNTER → 2024-10-02 09:26 | Outpatient (CLI) | payer MEDICARE, OTHER, SELFPAY ==
[2021-03-28 18:29] VITALS: BMI 21.4
[2024-10-02 10:30] LABS: Hemoglobin A1C% w Est Avg Glu 6.6 % (4.0-6.0)
[2024-10-02 10:40] LABS: Cholesterol 241 mg/dL (140-199); HDL Cholesterol 59 mg/dL (40-60); LDL Cholesterol Calculated 154 mg/dL (<100); Triglycerides 138 mg/dL (35-150)
== END ==
PROVIDERS: PCP Registered Nurse Diabetes Educator; Referring Provider Registered Nurse Diabetes Educator; Visit Provider Registered Nurse Diabetes Educator
DX: E11.9 Type 2 diabetes mellitus without complications (principal); E78.5 Hyperlipidemia, unspecified
CPT/HCPCS: 36415; 80061; 83036

== ENCOUNTER → 2024-10-21 11:25 | Outpatient (CLI) | payer MEDICARE, OTHER, SELFPAY ==
[2021-03-28 18:29] VITALS: BMI 21.4
--- NOTE | 2024-10-21 11:26 | DI.CT.S_ITS ---
PROCEDURE: CT LUNG LOW DOSE SCREENING INDICATIONS: eval, high-risk screen, current smoker TECHNIQUE: Noncontrast 2.0-2.5 mm thick sections acquired from the pulmonary apices to the posterior costophrenic angles. 7 mm thick axial MIP, and 5 mm coronal and sagittal reformats were then acquired. For radiation dose reduction, the following was used: automated exposure control, adjustment of mA and/or kV according to patient size. COMPARISON: None. FINDINGS: Image quality: Diagnostic Lungs and pleura: Background mild emphysema. Scattered scarring and atelectasis. Small fat containing Bochdalek's hernias. No dense airspace disease or pleural effusions. No suspicious pulmonary nodule. Micro nodules and granulomas are seen, for example in the right . Right 01/22. Mediastinum, heart, and esophagus: No hiatal hernia. Coronary calcifications. No pathologic lymph nodes by size criteria. Overall normal heart size. Chest wall and thyroid: Enlarged heterogeneous thyroid is partially seen. Chest wall is unremarkable Upper abdomen: No gross abnormality on these low-dose noncontrast images Bones: No aggressive appearing osseous abnormality. There are degenerative changes. IMPRESSION: No suspicious pulmonary nodules. LUNG-RADS 2; continued annual screening, if eligible. Clinically Significant Non-pulmonary Findings: Coronary calcifications are present. Enlarged heterogeneous thyroid, consider nonurgent sonographic correlation and TFT correlation. Dictated by: Dedrick Caal M.D. on 10/21/2024 at 16:01 Approved by: Dedrick Caal M.D. on 10/21/2024 at 16:05
== END ==
PROVIDERS: PCP Registered Nurse Diabetes Educator; Referring Provider Registered Nurse Diabetes Educator; Visit Provider Registered Nurse Diabetes Educator
DX: Z12.2 Encounter for screening for malignant neoplasm of respiratory organs (principal); F17.210 Nicotine dependence, cigarettes, uncomplicated
CPT/HCPCS: 71271

== ENCOUNTER → 2024-11-24 12:23 | Outpatient (CLI) | payer MEDICARE, OTHER, SELFPAY ==
[2021-03-28 18:29] VITALS: BMI 21.4
--- NOTE | 2024-11-24 12:25 | DI.US.S_ITS ---
PROCEDURE: US THYROID INDICATIONS: further eval, abnormal thyroid on lung CT TECHNIQUE: Real-time scanning was performed of the thyroid gland, with image documentation. COMPARISON: [facility], CT, CT LUNG LOW DOSE SCREENING, 10/21/2024, 11:38. FINDINGS: Thyroid: Right lobe measures 6.0 x 2.2 x 2.1 cm. Left lobe measures 6.1 x 2.6 x 1.9 cm. Isthmus is 0.4 cm thick. Echotexture is heterogenous with multiple nodules. The reference nodules are noted below: Nodule number: 1 Location: Right superior pole Size: 1.1 x 1.3 x 1.1 cm. Composition: Spongiform ACR TI-RADS category: TR 1 Nodule number: 2 Location: Right midpole Size: 1.4 x 1.5 x 1.2 cm. Composition: Spongiform ACR TI-RADS category: TR 1 Nodule number: 3 Location: Left midpole Size: 1.6 x 1.5 x 0.9 cm. Composition: Cystic Echogenicity: Anechoic Shape: wider than tall. Margins: Smooth Echogenic foci: Comet tail artifact Total points: 0 ACR TI-RADS category: TR 1 Nodule number: 4 Location: Left lower pole Size: 2.0 x 1.8 x 1.3 cm. Composition: Solid Echogenicity: Isoechoic Shape: wider than tall. Margins: Smooth Echogenic foci: None Total points: 3 ACR TI-RADS category: TR 3 IMPRESSION: 1. Left lower pole 2 cm TR 3 nodule. Follow-up thyroid ultrasound in 1, 3, and 5 years recommended. 2. Multinodular goiter; no further follow-up necessary for the other thyroid nodules noted above. ACR TI-RADS definitions and recommendations: TI-RADS 1 (benign): 0 points. FNA not needed. TI-RADS 2 (not suspicious): 2 points. FNA not needed. TI-RADS 3: 3 points. * FNA if 2.5 cm or larger, follow up if 1.5 cm or larger (at 1, 3, and 5 years). TI-RADS 4: 4-6 points. * FNA if 1.5 cm or larger, follow up if 1 cm or larger (at 1, 2, 3, and 5 years). TI-RADS 5: 7 points or more. * FNA if 1 cm or larger, follow up if 0.5 cm or larger (every year for 5 years). Dictated by: Rodrigo Ramos M.D. on 11/24/2024 at 15:27 Approved by: Rodrigo Ramos M.D. on 11/24/2024 at 15:34
== END ==
PROVIDERS: PCP Registered Nurse Diabetes Educator; Referring Provider Registered Nurse Diabetes Educator; Visit Provider Registered Nurse Diabetes Educator
DX: R93.89 Abnormal findings on diagnostic imaging of other specified body structures (principal); E04.2 Nontoxic multinodular goiter
CPT/HCPCS: 76536

== ENCOUNTER → 2024-12-30 08:12 | Outpatient (CLI) | payer MEDICARE, OTHER, SELFPAY ==
[2021-03-28 18:29] VITALS: BMI 21.4
[2024-12-30 09:36] LABS: Hematocrit 45.9 % (36-46); Hemoglobin 15.4 g/dL (12.0-16.0); Mean Corpuscular HGB Conc 33.6 % (30-36); Mean Corpuscular Hemoglobin 30.3 PG (26-34); Mean Corpuscular Volume 90.3 fL (80-100); Platelet Count 215 X10^3/uL (150-400); Red Blood Cell Count 5.08 X10^6/uL (4.0-5.2); Red Cell Distribution Width 14.1 % (11.6-14.8); White Blood Cell Count 6.9 X10^3/uL (4.5-11.0)
[2024-12-30 09:50] LABS: Hemoglobin A1C% w Est Avg Glu 6.6 % (4.0-6.0)
[2024-12-30 10:06] LABS: Alanine Aminotransferase 19 IU/L (<35); Albumin 4.5 g/dL (3.5-5.0); Albumin Globulin Ratio 1.7 (1.0-2.8); Alkaline Phosphatase 54 U/L (38-126); Aspartate Aminotransferase 22 IU/L (14-36); BUN Creatinine Ratio 21.1 (6-22); Bilirubin Total 0.6 mg/dL (0.2-1.3); Blood Urea Nitrogen 15 mg/dL (7-17); Calcium 9.6 mg/dL (8.4-10.2); Carbon Dioxide 25 mmol/L (22-32); Chloride 107 mmol/L (98-107); Cholesterol 165 mg/dL (140-199); Estimated Glomerular Filt Rate > 60 mL/min (>60); Globulin 2.6 g/dL (1.7-4.1); Glucose 123 mg/dL (70-99); HDL Cholesterol 61 mg/dL (40-60); HEMOLYSIS < 15 (0-50); LDL Cholesterol Calculated 76 mg/dL (<100); Potassium 4.9 mmol/L (3.4-5.1); Sodium 139 mmol/L (137-145); Total Protein 7.1 g/dL (6.3-8.2); Triglycerides 140 mg/dL (35-150)
[2024-12-30 10:40] LABS: TSH w/ Reflex to FT4 0.41 uIU/mL (0.47-4.68)
[2024-12-30 11:17] LABS: Free T4, Direct Thyroxine 1.37 ng/dL (0.78-2.19)
== END ==
PROVIDERS: PCP Registered Nurse Diabetes Educator; Referring Provider Registered Nurse Diabetes Educator; Visit Provider Registered Nurse Diabetes Educator
DX: F17.200 Nicotine dependence, unspecified, uncomplicated (principal); E11.9 Type 2 diabetes mellitus without complications; E78.5 Hyperlipidemia, unspecified; I10 Essential (primary) hypertension; R93.89 Abnormal findings on diagnostic imaging of other specified body structures
CPT/HCPCS: 36415; 80053; 80061; 83036; 84439; 84443; 85027